=== PATIENT | male | born 1955 | race Caucasian/White ===

== ENCOUNTER 2022-12-22 07:18 | Outpatient (CLI) | payer MEDICARE, SELFPAY ==
[2022-12-22 07:48] VITALS: BMI 25.1
--- NOTE | 2022-12-22 07:48 | ECG_ITS ---
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 Interpretive Statements NAME OF STUDY: LEXISCAN SESTAMIBI STRESS TEST INDICATION: Htn, PROCEDURE: At the baseline, the EKG revealed normal sinus rhythm with a normal ST Ts.. The baseline heart was 65 bpm with a blood pressue of 147/97 mm of Hg Lexiscan was infused over a period of 20 seconds. A total of 0.4 milligrams of Lexiscan was infused. The stress phase was continued for a total of 5 minutes. Heart rate at the end of the stress phase was 79 bpm with a blood pressure 140/95 mm of Hg. The EKG at the peak infusion revealed no significant changes. Sestamibi was injected 20 seconds after the Lexiscan infusion. Heart rate at the end of the recovery phase was 79 bpm with a blood pressure of 165/92 mm of Hg. CONCLUSION: 1. No significant EKG changes with the LexiScan infusion 2. No LexiScan induced chest pain or cardiac arrhythmia 3. Normal blood pressure and heart rate response 4. Sestamibi/sestamibi perfusion scan pending; see separate report. Electronically Signed On 12-23-2022 14:14:19 FUND MANAGER by Vi Avina M.D. [id number]
--- NOTE | 2022-12-22 07:49 | NMCV_ITS ---
NM sondra perf SPECT r/s* [id number] Manas Puente Age: 67 Gender: M : 1955 Exam Date: 12/22/2022 08:00 Ordering Phys: Kia Ziegler [employer] Technologist: LEROY Maloney Exam Location: [facility] Indications: CHEST PAIN STRESS TEST Please see separate stress test report in [facility] for full findings IMAGE PROTOCOL Rest/Stress 1 Lexiscan Day Radiopharmaceutical Dose (mCi) Administration Site Administered by Rest: Tc-99m 10.5 IV LEROY Maloney Sestamibi Stress:Tc-99m 32.9 IV LEROY Dang Sestamibi Rest: 22-Dec-2022 60 Discovery 630 Stress: 22-Dec-2022 30 Discovery 630 0.4mg Lexiscan. Images obtained in supine and prone position. SPECT RESULTS Technical Quality: Excellent Raw Data Analysis: Normal Image Corrections: No attenuation or motion correction applied Summed Stress Score: 0 Summed Rest Score: 0 Summed Difference Score: 0 PERFUSION FINDINGS Quality of slightly decreased asymmetry was noted in the inferior wall region. No significant reversibility was noted in this region Significant attenuation artifacts also where noted in this area . FUNCTIONAL RESULTS (calculated via Gated SPECT) Stress Image LV EF (%): 69 Stress EDV (mL):105 TID: 0.96 Stress ESV (mL):33 FUNCTIONAL FINDINGS: Segmental wall motion analysis revealing no gross wall motion abnormalities IMPRESSIONS 1. Myocardial perfusion imaging revealing a small area of slightly decreased persistent tracer uptake in the inferior wall region, most likely represent attenuation artifact 2. Normal LV ejection fraction of 69%. 3. LV wall motion analysis revealing no gross wall motion abnormalities. 4. Normal LV volume Low probability for coronary ischemia, based on the above findings Dr Vi Avina MD FACC (Electronically Signed) Final Date: 22 December 2022 15:11 S
[2022-12-22] MEDS: regadenoson 0.4 Mg/5 ml Syringe IVP (08:56)
[2022-12-22 09:05] VITALS: BP 165/92; PULSE 80
== END 2022-12-22 07:19 | disposition home or self-care (01) ==
PROVIDERS: PCP Family Medicine; Visit Provider Nurse Practitioner Family
DX: I10 Essential (primary) hypertension (principal); R07.89 Other chest pain; R06.09 Other forms of dyspnea
CPT/HCPCS: 36415; 78452; 93017; 96374; A9500; J2785

== ENCOUNTER → 2024-03-06 12:23 | Outpatient (BNVA) | payer MEDICARE, SELFPAY | PROVIDERS: PCP Family Medicine; Referring Provider Nurse Practitioner Family; Visit Provider Internal Medicine Cardiovascular Disease | DX: R07.9 Chest pain, unspecified (principal) | CPT/HCPCS: 93005; 99205 ==

== ENCOUNTER 2024-03-14 10:38 | Outpatient (CLI) | payer MEDICARE, SELFPAY ==
[2024-03-14 11:06] LABS: Basophils % 0.7 %; Eosinophils # 0.1 10^3/uL (0.0-0.8); Eosinophils % 2.6 %; Hematocrit 38.2 % (37-53); Lymphocytes # 1.5 10^3/uL (0.8-4.8); Lymphocytes % 34.9 %; Mean Corpuscular HGB Conc 35.1 g/dL (30-55); Mean Corpuscular Hemoglobin 31.6 pg (27-33); Mean Corpuscular Volume 90.1 fl (82-101); Mean Platelet Volume 10.5 fL (7.4-10.4); Monocytes # 0.4 10^3/uL (0.2-0.9); Monocytes % 10.5 %; Neutrophils # 2.15 10^3/uL (1.8-7.7); Neutrophils % 51.1 %; Nucleated Red Blood Cells % 0 %; Platelet Count 207 10^3/cmm (157-399); Red Blood Count 4.24 10^6/uL (3.85-5.65); Red Cell Distribution Width 11.9 % (12.1-15.1); White Blood Count 4.21 10^3/uL (3.29-11.43)
[2024-03-14 11:20] LABS: INR 0.92 (0.8-1.2)
[2024-03-14 11:27] LABS: Anion Gap 13.5 (5-19); Blood Urea Nitrogen 20 mg/dL (8-23); Calcium 8.9 mg/dL (8.5-10.5); Carbon Dioxide 25 mmol/L (22-29); Chloride 103 mmol/L (98-107); Chol HDL Ratio 2.76 mg/dL (1.0-5.00); Cholesterol 182 mg/dL (0-200); Glomerular Filtration Rate 84.2 mL/min (90-130); Glucose 124 mg/dL (65-115); HDL Cholesterol 66 mg/dL (60-100); LDL Cholesterol Calculated 102 mg/dL (50-129); LDL HDL Ratio 1.55 RATIO (0.00-3.22); Osmolality Calculated 288 mOsm/kg (285-295); Potassium 4.5 mmol/L (3.5-5.1); Sodium 137 mmol/L (136-145); Triglycerides 69 mg/dL (0-150)
== END 2024-03-14 10:39 | disposition home or self-care (01) ==
LOC: LAB 10:39
PROVIDERS: Internal Medicine Cardiovascular Disease; PCP Family Medicine; Visit Provider Family Medicine
DX: E78.5 Hyperlipidemia, unspecified (principal); I48.91 Unspecified atrial fibrillation; R06.02 Shortness of breath; Z79.01 Long term (current) use of anticoagulants
CPT/HCPCS: 80048; 80061; 85025; 85610; 86850; 86900

== ENCOUNTER 2024-03-24 11:52 | Outpatient (CLI) | payer MEDICARE, SELFPAY ==
--- NOTE | 2024-03-24 11:59 | CT_ITS ---
WS: [id number] CT ABDOMEN AND PELVIS WITH CONTRAST HISTORY: LLQ ABDOMINAL PAIN TECHNIQUE: Imaging performed of the abdomen and pelvis with IV contrast. Single phase imaging of the abdomen. Coronal and sagittal reformats are submitted. All CT scans at [facility] use at [address] one of these dose optimization techniques: automated exposure control; mA and/or kV adjustment per patient size (includes targeted exams where dose is matched to clinical indication); or iterative re construction. IV CONTRAST: Omnipaque 350; 100 mL IV. Oral contrast: Yes. DLP: 406.01 mGy.cm COMPARISON: None available. Lower thorax: Very small subpleural nodules at the lung bases. There are a few micronodules. No pneum onia. Heart is normal size. No hiatal hernia. Liver/biliary system: Normal size liver. There is scattered low-attenuation masses throughout the gabi er. Majority of these measure 2 to 3 mm and are too small to characterize. There is a larger cyst in the posterior RIGHT lobe measuring 12 mm. No bile duct dilatation. Normal portal vein. Gallbladder: Contracted gallbladder. Pancreas: Normal size pancreas and pancreatic duct. No adjacent inflammation. Spleen: Normal size with granulomata. Adrenal glands: Normal. Right kidney: Normal. Left kidney: Normal. Aorta: Mild atherosclerosis with no aneurysm. Lymphadenopathy: None. Free fluid: None. GI tract: Nondistended stomach. No small bowel obstruction. Normal appendix. There are a few scattere d diverticula in the descending and sigmoid colon. No acute diverticulitis. Very slight narrowing of the distal sigmoid may be an area of peristalsis. Early neoplasm is not excluded. There is no adjacen t adenopathy. Abdominal wall: Very small umbilical hernia. Pelvis: No free fluid or adenopathy within the pelvis. Well distended urinary bladder. Hypervascular mass measures 11 mm in the RIGHT lateral bladder wall concerning for neoplasm. LEFT lateral bladder d iverticulum measures 3.9 x 2.5 cm. Inguinal canals are patent. Bones: Straightening of the normal lumbar lordosis. Mild foraminal narrowing at L4-5 and L5-S1 due to osteophyte disease. CT/CT abdomen pelvis w con* [id number] IMPRESSION: 1. Mild descending and sigmoid colon diverticulosis. No evidence for acute div erticulitis. 2. 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 Recommend follow-up with urology and cystoscopy. 3. Contracted gallbladder. 4. There are numerous scattered too small to characterize hypodensities in the liver along with a cyst. The small hypodensities may be tiny cysts or early me tastatic sites. The small indeterminate liver lesions would be poorly noted by ultrasound. Consider follow-up CT abdomen and pelvis with IV contrast in 3 to 4 months. 5. Very minimal wall thickening and narrowing of the distal sigmoid. This may be an area of peristalsis or early developing neoplasm. Recommend colonoscopy.
[2024-03-24] MEDS: iohexol 300 mg/mL 100 mL Btl IV (12:37)
[2024-03-24 13:45] LABS: INR 0.94 (0.8-1.2)
[2024-03-24 14:05] LABS: Anion Gap 14.4 (5-19); Blood Urea Nitrogen 12 mg/dL (8-23); Calcium 8.7 mg/dL (8.5-10.5); Carbon Dioxide 27 mmol/L (22-29); Chloride 100 mmol/L (98-107); Glomerular Filtration Rate 84.2 mL/min (90-130); Glucose 87 mg/dL (65-115); NT Pro B Type Natriuretic Pept < 36 pg/mL (0-125); Osmolality Calculated 283 mOsm/kg (285-295); Potassium 4.4 mmol/L (3.5-5.1); Sodium 137 mmol/L (136-145)
== END 2024-03-24 11:53 | disposition home or self-care (01) ==
LOC: RAD 11:53
PROVIDERS: Internal Medicine Cardiovascular Disease; PCP Family Medicine; Visit Provider Urology
DX: R10.32 Left lower quadrant pain (principal); I27.21 Secondary pulmonary arterial hypertension; I25.118 Atherosclerotic heart disease of native coronary artery with other forms of angina pectoris; K57.30 Diverticulosis of large intestine without perforation or abscess without bleeding; K76.89 Other specified diseases of liver
CPT/HCPCS: 36415; 74177; 80048; 83880; 85610; 86850; 86900; Q9967

== ENCOUNTER 2024-03-27 10:35 | Observation (INO) | payer MEDICARE, SELFPAY ==
[2024-03-27] VITALS (80 sets, daily range): BP systolic 60–159; BP diastolic 39–95; PULSE 50–93; RESP 12–28; TEMP 36.7–36.9; O2SAT 85–99; BMI 25.7
[2024-03-27] MEDS: diphenhydrAMINE 50 mg Capsule PO (06:25)
--- NOTE | 2024-03-27 07:00 | XACV_ITS ---
Exam Room: 2 Ht: 180 cm Wt: 84 kg BSA: 2.06 m2 Gender: Male : 1955 Any Known Allergies: Codeine Exam Priority: Routine Procedure(s): Procedure Description: Diagnostic procedure Procedure Description: PCI procedure Procedure Description: Left Heart Catheterization Procedure Description: Left ventriculography Procedure Description: Drug Eluting Coronary Stent Procedure Description: PTCA Procedure Description: Coronary Atherectomy Procedure Description: Miscellaneous Procedure Description: ACT Procedure Description: Coronary Angiography Procedure Description: Pressure Wire Fabrice OROPEZA; Diagnostic Cath Status: Elective Diagnostic Findings * The left main is a medium caliber vessel with no significant stenotic lesions. Moderate calcification was noted in the proximal to mid segments of all the 3 coronary arteries. * The left anterior descending artery is a medium caliber vessel which appears to wraparound the LV apex. The proximal LAD was found to have mild diffuse intimal irregularities. The mid LAD was found to have proximal around 40% tubular narrowing. Minimal intimal irregularities are noted in the rest of the vessels. The first diagonal branch also was found to have proximal of 40 to 50% tubular narrowing. The second diagonal which originates close to the first diagonal vessel also was found to have around 20 to 30% tubular narrowing proximally. * The left circumflex artery is a medium caliber vessel whichwas found to have mild diffuse disease. It is a medium caliber nondominant vessel. * The right coronary artery is a medium caliber dominant vessel which was found to have moderate to heavy calcification in the proximal to mid segment. Just before the first artery branch, there was a 70% tubular irregular narrowing in the artery. The mid RCA was found to have around 50% tubular narrowing. The PDA and the PLV branches were found to have minimal intimal irregularities. PCI Status: Elective PCI Indication: Other Interventional Findings * Procedure detail: We initially engaged RCA with JR4 guide catheter. iFR was performed that showed a significant value of 0.89. We switched guide to AL 0.75 for more support as the vessel was heavily calcified. Attempted performing shockwave intravascular lithotripsy was unsuccessful as balloon would not cross. We then proceeded with orbital arthrectomy. Several runs of orbital arthrectomy was performed. Shockwave balloon was used to deliver intravascular lithotripsy. This was 3.5 x 12 mm balloon. We then predilated the stenosis with 3.5 x 15 mm NC balloon. However even after that, stent could not be advanced. We then switched to access to femoral artery. This was for more support. AL guide was again used to engage the artery. This eventually let us place 3.0 x 38 mm resolute Phelan drug-eluting stent from proximal to mid RCA. Stent was postdilated with 3.5 x 15 mm NC balloon. Balloon angioplasty of distal RCA was also performed with 3.5 x 15 mm NC balloon. However stent could not be advanced. As this was moderate lesion, and patient was symptom-free, we decided to stop. If has symptoms in future, can obtain stress test to see if there is residual ischemia in RCA territory for assessing need for staged PCI. . * Proximal Right Coronary Artery: 70% stenosis treated with a MDT NC EUPHORA RX 3.14C77UI BALLOON, Shockwave 3.5x12mm, and MDT NC EUPHORA RX 3.91A81HY BALLOON. 0% residual stenosis, REGGIE: 3 flow. * Mid Right Coronary Artery: 70% stenosis treated with a MDT NC EUPHORA RX 3.21O22RZ BALLOON, Shockwave 3.5x12mm, MDT R GOMEZ 3.0X38 KELL, and MDT NC EUPHORA RX 3.51P45JG BALLOON. 0% residual stenosis, REGGIE: 3 flow. * Distal Right Coronary Artery: 70% stenosis treated with a MDT NC EUPHORA RX 3.99W42DA BALLOON. 0% residual stenosis, REGGIE: 3 flow. Conclusions 1. 68-year-old white male with history of hypertension, type 2 diabetes, dyslipidemia, presented with complaints of dyspnea on exertion, easy fatigability and chest pains/chest discomfort. He had a Myocardial perfusion imaging which was unremarkable. However in view of the multiple risk factors and the ongoing symptoms, in order to further evaluate the coronary status, a cardiac catheterization was recommended. Patient underwent left heart catheterization with left and right coronary angiogram and LV angiogram today. The findings are as follows. 2. High-grade lesion in the proximal to mid RCA. Mild to moderate disease in the proximal to mid LAD, proximal segments of the first and second diagonal branches.Mild diffuse disease in the other vessels. Moderate coronary calcification in the proximal to mid segments of all the 3 coronary artery disease. Normal LV ejection fraction of 55%. LVEDP of 20 mmHg. Based on the above angiographic findings, it was thought to be appropriate to consider PCI of the RCA lesion. I reviewed and discussed the cardiac catheterization data with Dr. De Santiago. Dr. De Santiago took cover further management of this patient at this point. 3. iFR significant for RCA stenosis. S/p successful revascularization of proximal to mid, heavily calcified lesion with orbital arthrectomy, intravascular lithotripsy shockwave balloon angioplasty and 1 stent. Distal RCA had balloon angioplasty however stent could not be advanced. 4. Proximal Right Coronary Artery was treated with a Balloon, Balloon, and Balloon. 5. Mid Right Coronary Artery was treated with a Balloon, Balloon, Drug Eluting Stent, and Balloon. 6. Distal Right Coronary Artery was treated with a Balloon. Recommendations * Dual antiplatelet therapy with aspirin and plavix for atleast 1 year. * If has continued symptoms in future, can consider stress test to assess distal RCA stenosis. * Outpatient cardiology follow up in 2 weeks. Interventional RX Recommendation: PCI w/o planned CABG Diagnostic RX Recommendation: PCI w/o planned CABG Anticoagulation: Heparin Ventriculography Ejection Fraction: 55.0 % LV EDP: 20 mmHg Left Ventriculography Findings: * LV gram was performed in the HUDSON position. The LV ejection fraction was around 55%. No significant mitral valve prolapse or mitral regurgitation. No filling defects were noted. The LVEDP was 20 mmHg. Pressures Phase:Rest AO : 103 / 65 ( 79 ) @ 8:29:00 AM 82 / 80 ( 73 ) @ 8:31:00 AM 116 / 70 ( 91 ) @ 8:42:00 AM 133 / 69 ( 92 ) @ 8:42:00 AM 109 / 68 ( 86 ) @ 8:53:00 AM 105 / 63 ( 80 ) @ 8:55:00 AM 92 / 65 ( 79 ) @ 9:21:00 AM 80 / 61 ( 71 ) @ 9:37:00 AM 124 / 73 ( 94 ) @ 10:31:00 AM LV : 121 / -4 / 16 @ 8:41:00 AM 124 / 0 / 19 @ 8:42:00 AM 123 / 0 / 20 @ 8:42:00 AM Valves Phase:DefaultPhase AV : 7.0 @ 10:25:30 AM 7.0 @ 10:25:30 AM AV Mean Gradient: 14.0 @ 10:25:30 AM 14.0 @ 10:25:30 AM Clinical Evaluation EBL: 5mL-10mL Procedural Details Pre-Procedure Time Out. Identified patient by full name and date of as verbalized by the patient/guarantor. Does the consent match the physician's order: Yes. Accurate & Complete Informed Consent: Yes. Inpatient/Outpatient History & Physical on Chart: No. If H&P is completed, is and addenduem needed: No; If yes, is the addendum complete: N/A. Visualize and Verify Site with Patient/Guarantor: N/A. Relevant Radiology Images available: Yes. Pre-op teaching completed and patient verbalized understanding. The risks, benefits, and alternatives of sedation and/or procedure were discussed by physician. The patient agrees to continue. Procedure started. Physician arrived. Current Diagnosis : Chest Pain. Physician scrubbed in. Immediate Pre-Procedure Time Out. Correct Patient: Yes; Correct Procedure: Yes; Correct Site: Yes; Correct Patient Position: Yes; Correct Supplies: Yes; Dried Flammable Prep: Yes; Blood Products Available: N/A;. Lidocaine 1% infiltrated to the right radial. Arterial access obtained. A 5 wallisian Joaquim catheter in over wire. Multiple views taken of left coronary artery. Catheter redirected to the RCA. Catheter removed over the exchange wire. A 5 wallisian JR4 catheter in over wire. Multiple views taken of right coronary artery. Dr. De Santiago called to review films. Catheter removed over the exchange wire. A 5 wallisian Angled Pig catheter in over wire. Dr. De Santiago arrived. EDP Sample taken: LV 121/-5,16; HR: 62 BPM; SpO2: 94%. LV gram performed in HUDSON @ 10 mL/second for a total of 30 mL. EDP Sample taken: LV 124/0,19; HR: 64 BPM; SpO2: 95%. Pullback taken: LV 123/0,20; AO 116/70(91); Mean: 14mmHg, Peak to Peak: 7mmHg, SEP: 7sec/min; HR: 63 BPM; SpO2: 95%. Catheter removed over the exchange wire. Physician scrubbed out. Dr. De Santiago scrubbed in to perform intervention. 6 wallisian JR 4 guide catheter was inserted over the wire. IFR guidewire was advanced through the guide catheter to lesion in the RCA. IFR results: 0.89. Runthrough guidewire was advanced through the guide catheter to lesion in the RCA. IFR wire out. 3.5x12mm Shockwave balloon inserted OTW and advanced to the RCA. Shockwave balloon out OTW. Wire out. Guide catheter out. 6 wallisian AL 0.75 guide catheter was inserted over the wire. Runthrough guidewire was advanced through the guide catheter to lesion in the mid RCA. ACT drawn. Results 320 seconds. Therapeutic limits - pre-heparin administration 90-150 seconds and monitoring heparin during a vascular procedure >250 seconds. 3.5x12mm Shockwave balloon inserted OTW and advanced to the RCA. Shockwave balloon out OTW. Teleport catheter inserted OTW. Runthrough wire out. Viperwire inserted and advanced through the Teleport catheter. Teleport catheter out OTW. 1.25mm Diamondback Coronary craig inserted OTW and advanced to the RCA. Athrectomy performed. AP Pads placed on the patient. Results checked. Athrectomy performed. Craig removed OTW. Teleport catheter inserted OTW. Viperwire out. 300cm Runthrough wire inserted and advanced through the Teleport catheter. Catheter out OTW. Inflation number : 1 A MDT NC EUPHORA RX [id number] BALLOON was prepped and advanced across the Mid RCA , then inflated to 14 SHANTI for 0:14 seconds. Inflation number: 2 The MDT NC EUPHORA RX 3.44T77WM BALLOON was reinflated across the Mid RCA, to 14 SHANTI for 0:09 seconds. Inflation number: 1 The MDT NC EUPHORA RX 3.14Y01UZ BALLOON was reinflated across the Prox RCA, to 16 SHANTI for 0:13 seconds. Balloon out. 3.5x12mm Shockwave balloon inserted OTW and advanced to the RCA. Inflation number : 2 A Shockwave 3.5x12mm was prepped and advanced across the Prox RCA , then inflated to 4 SHANTI for 0:20 seconds. Inflation number: 3 The Shockwave 3.5x12mm was reinflated across the Prox RCA, to 4 SHANTI for 0:14 seconds. Inflation number: 3 The Shockwave 3.5x12mm was reinflated across the Mid RCA, to 4 SHANTI for 0:15 seconds. Shockwave balloon out OTW. 3.0x38 Phelan stent inserted OTW. Stent unable to cross the lesion. Intact stent out OTW. Guideliner inserted OTW. 3.0x38 Gomez stent inserted OTW. Intact stent out OTW. Guideliner and wire out. Runthrough guidewire was advanced through the guide catheter to lesion in the mid RCA. 3.5x22mm Gomez stent inserted OTW. Intact stent out OTW. Guideliner inserted OTW and advanced to the RCA. 3.5x22mm Phelan stent inserted OTW. Intact stent out OTW. 300cm Runthrough wire inserted and advanced to the RCA. 3.5x12mm Shockwave balloon inserted OTW and advanced to the RCA. Inflation number: 4 The Shockwave 3.5x12mm was reinflated across the Prox RCA, to 4 SHANTI for 0:19 seconds. Inflation number: 4 The Shockwave 3.5x12mm was reinflated across the Mid RCA, to 4 SHANTI for 0:14 seconds. Inflation number: 5 The Shockwave 3.5x12mm was reinflated across the Mid RCA, to 4 SHANTI for 0:14 seconds. Shockwave balloon out OTW. 3.0x38 Phelan stent inserted OTW. Stent unable to cross the lesion. Intact stent out OTW. ACT drawn. Results 267 seconds. Therapeutic limits - pre-heparin administration 90-150 seconds and monitoring heparin during a vascular procedure >250 seconds. Wire out. Guide catheter out. A TR Band was successful obtaining hemostatsis at the Right Radial artery insertion site. Patient's family updated. Lidocaine 1% infiltrated to the right groin. Arterial access obtained with micropuncture set. Short sheath exchanged for a 45cm Flexor sheath. 6 wallisian AL 0.75 guide catheter was inserted over the wire. Runthrough guidewire was advanced through the guide catheter to lesion in the mid RCA. 300cm Runthrough wire inserted and advanced to the RCA. Guideliner inserted OTW and advanced to the RCA. Guideliner out. 3.0x38 Gomez stent inserted OTW. Inflation Number : 6 A MDT R GOMEZ 3.0X38 KELL -Lot Number# _[id number] EXP: 08/08/2026 was prepped and advanced across the Mid RCA. The stent was deployed at 12 SHANTI for 0:26 seconds. Stent balloon out over wire. 300cm Runthrough wire out. Inflation number : 1 A MDT NC EUPHORA RX 3.29E64ZU BALLOON was prepped and advanced across the Dist RCA , then inflated to 12 SHANTI for 0:11 seconds. Inflation number: 2 The MDT NC EUPHORA RX 3.86L93LN BALLOON was reinflated across the Dist RCA, to 12 SHANTI for 0:13 seconds. Inflation number: 7 The MDT NC EUPHORA RX 3.00H70CI BALLOON was reinflated across the Mid RCA, to 18 SHANTI for 0:10 seconds. Inflation number: 8 The MDT NC EUPHORA RX 3.70C94ZX BALLOON was reinflated across the Mid RCA, to 20 SHANTI for 0:15 seconds. Inflation number: 5 The MDT NC EUPHORA RX 3.55L12FK BALLOON was reinflated across the Prox RCA, to 20 SHANTI for 0:09 seconds. Balloon out. Results checked. 3.5x22 Phelan stent inserted and advanced OTW. Stent unable to cross the lesion. Intact stent out OTW. Guideliner inserted OTW. 3.5x22 Gomez stent inserted and advanced OTW. Stent unable to cross the lesion. Intact stent out OTW. 3.5x12 Gomez stent inserted and advanced OTW. Stent unable to cross the lesion. Intact stent out OTW. Guideliner removed OTW. 300cm Runthrough wire inserted and advanced through the guide catheter. 3.5x12 Phelan stent inserted and advanced OTW. Stent unable to cross the lesion. Intact stent out OTW. Wires out. ACT drawn. Results 379 seconds. Therapeutic limits - pre-heparin administration 90-150 seconds and monitoring heparin during a vascular procedure >250 seconds. Guide catheter out. A Right femoral angiogram was performed to determine safe placement of closure device. A Suture was successful obtaining hemostatsis at the Right Femoral artery insertion site. Sheath(s) sutured into position with 2-0 silk and sterile 4x4's and Op-site applied over the site. No oozing or signs and symptoms of hematoma noted. Arterial sheath flushed and connected to tranducer and pressure bag with heparinized saline. Post Procedure: Pulses reassessed and unchanged. PERRLA. Strong, equal hand director construction services bilaterally. No VTE prophylaxis required. Vital chart was stopped. Medication's Wasted: Heparin = 3000 units. Medication's Wasted: Nitro = 49.4 mg. Total IV fluids: 250 mL. Post-op diagnosis: CAD. Complications: None. Estimated blood loss: 5mL-10mL. Responsiveness - Normal response to verbal stimuli; alert and oriented, PERRLA. Airway - Unaffected, no intervention required; spontaneous ventilation. Circulation: W/N/L, pulses unchanged. Nausea/Vomiting: No. Procedure completed. Patient transferred by bed to 1st floor. Access Site Site: Right Radial artery Sheath Size: 6 Fr Hemostasis Method: TR Band Hemostasis Success: Successful Site: Right Femoral artery Sheath Size: 6 Fr Hemostasis Method: Suture Hemostasis Success: Successful Procedure Medications Start: 7:15 AM Stop: 7:15 AM Medication: Versed Amount: 1 mg Route: I.V. Start: 7:22 AM Stop: 7:22 AM Medication: Versed 1 mg and Fentanyl 25 mcg Amount: 1 Route: I.V. Start: 7:24 AM Stop: 7:24 AM Medication: Nitrogylcerin Amount: 200 mcg Route: I.A. Start: 7:24 AM Stop: 7:24 AM Medication: Verapamil Amount: 5 mg Route: I.A. Start: 7:28 AM Stop: 7:28 AM Medication: Heparin Amount: 5000 units Route: I.V. Start: 7:36 AM Stop: 7:36 AM Medication: Fentanyl Amount: 25 mcg Route: I.V. Start: 7:49 AM Stop: 7:49 AM Medication: Versed Amount: 1 mg Route: I.V. Start: 7:51 AM Stop: 7:51 AM Medication: Heparin Amount: 3000 units Route: I.V. Start: 8:04 AM Stop: 8:04 AM Medication: Heparin Amount: 1000 units Route: I.V. Start: 8:07 AM Stop: 8:07 AM Medication: Fentanyl Amount: 25 mcg Route: I.V. Start: 8:06 AM Stop: 8:06 AM Medication: Nitrogylcerin Amount: 200 mcg Route: I.A. Start: 8:33 AM Stop: 8:33 AM Medication: Versed Amount: 1 mg Route: I.V. Start: 8:36 AM Stop: 8:36 AM Medication: Heparin Amount: 1000 units Route: I.V. Start: 8:54 AM Stop: 8:54 AM Medication: Versed Amount: 1 mg Route: I.V. Start: 9:02 AM Stop: 9:02 AM Medication: Heparin Amount: 1000 units Route: I.V. Start: 9:25 AM Stop: 9:25 AM Medication: Fentanyl Amount: 25 mcg Route: I.V. Start: 9:29 AM Stop: 9:29 AM Medication: Heparin Amount: 2000 units Route: I.V. Start: 9:49 AM Stop: 9:49 AM Medication: Versed Amount: 1 mg Route: I.V. Start: 9:58 AM Stop: 9:58 AM Medication: Heparin Amount: 1000 units Route: I.V. Start: 10:10 AM Stop: 10:10 AM Medication: Plavix Amount: 600 mg Route: P.O. Start: 10:10 AM Stop: 10:10 AM Medication: Aspirin Amount: 325 mg Route: P.O. I, the attending physician, have reviewed and verified all procedure medications. Yes, all medications given per verbal order History/Risk Factors Hypertension: Yes Dyslipidemia: Yes Peripheral Arterial Disease (PAD): No Myocardial Infarction (AK): No Obesity: No Renal Disease: No Prior Interventions PCI: No CABG: No Valve Surgery: No Report Signatures Interventional Workflow Finalized by Woodrow De Santiago MD on 04/06/2024 12:27 PM Diagnostic Workflow Finalized by Dr Vi Avina MD [facility] on 03/29/2024 11:29 AM
--- NOTE | 2024-03-27 07:11 | W.PM.OPSUD ---
Surgery/Procedure H&P Update DATE OF PROCEDURE: March 27, 2024 DATE H&P PERFORMED: 03/06/24 H&P UPDATE INFORMATION: I have reviewed H&P completed within last 30 days, I have examined patient prior to procedure and No changes to prior documentation PREOP DIAGNOSIS: suspected ASHD PRIMARY INDICATION FOR PROCEDURE: CP/SOB/atherosclerosis of the aorta/ wall motion abnormality by ECHO PLANNED PROCEDURE: Operation Date: 03/27/24 07:00 Proposed Procedures p Cardiac Catheterization(Left) - Vi Avina MD PATIENT REASSESSED PRIOR TO SEDATION, WITH NO CHANGE NOTED: Yes PHYSICAL EXAM: alert, oriented x 3, clear to auscultation bilaterally and regular rate & rhythm AIRWAY EVAL/ANESTHESIA PLAN: normal airway, see other exam findings, ASA III, Monitored Anesthesia, Local Anesthesia, Risks, benefits & alternatives of sedation and/or procedure discussed and Patient agrees to continue as planned
[2024-03-27] MEDS: sodium chloride 0.9% 1,000 ML 100 ML IV (13:47)
[2024-03-27 14:00] LABS: Partial Thromboplastin Time 199.4 SECONDS (23.9-36.7)
[2024-03-27 16:14] LABS: Partial Thromboplastin Time 42.5 SECONDS (23.9-36.7)
--- NOTE | 2024-03-27 16:32 | PC.NURSE ---
Small hematoma noted to R. groin with sheath still in place. PTT noted to be 42.5 and able to pull sheath at this time. Within minutes of pulling thte sheath, the pt started to vagal down with BP dropping from 140 systolic to 60 systolic. Pt placed in trendelenberg position and bolus IVF given for the rest of the pull as the pt's BP did not start to rise until about 12-14 minutes into the pull. Carefully attempted to message hematoma and did soften the tissue but did not want to effect the BP in the process. Once sheath pull was completed, the pt's VS returned to normal and pt stated that he was feeling much better.
[2024-03-27] MEDS: trazodone 100 mg Tablet PO (20:52)
[2024-03-28 00:51] VITALS: BP 116/69; PULSE 77; RESP 15; TEMP 36.9; O2SAT 97
[2024-03-28 04:55] VITALS: BP 120/69; PULSE 83; RESP 14; TEMP 36.9; O2SAT 95
[2024-03-28 05:21] LABS: Basophils % 0.6 %; Eosinophils # 0.1 10^3/uL (0.0-0.8); Eosinophils % 1.5 %; Lymphocytes # 1.4 10^3/uL (0.8-4.8); Lymphocytes % 27.4 %; Mean Corpuscular HGB Conc 33.8 g/dL (30-55); Mean Corpuscular Hemoglobin 31.3 pg (27-33); Mean Corpuscular Volume 92.7 fl (82-101); Mean Platelet Volume 10.7 fL (7.4-10.4); Monocytes # 0.5 10^3/uL (0.2-0.9); Monocytes % 9.5 %; Neutrophils # 3.18 10^3/uL (1.8-7.7); Neutrophils % 60.4 %; Nucleated Red Blood Cells % 0 %; Platelet Count 202 10^3/cmm (157-399); Red Blood Count 3.99 10^6/uL (3.85-5.65); Red Cell Distribution Width 12.1 % (12.1-15.1); White Blood Count 5.26 10^3/uL (3.29-11.43)
[2024-03-28 05:44] LABS: Blood Urea Nitrogen 12 mg/dL (8-23); Calcium 8.4 mg/dL (8.5-10.5); Carbon Dioxide 23 mmol/L (22-29); Chloride 104 mmol/L (98-107); Creatinine Clr Calc Pharmacy 99.7996; Glomerular Filtration Rate 96.4 mL/min (90-130); Glucose 94 mg/dL (65-115); Osmolality Calculated 284 mOsm/kg (285-295); Sodium 137 mmol/L (136-145)
[2024-03-28 05:47] LABS: Anion Gap 14.2 (5-19); Potassium 4.2 mmol/L (3.5-5.1)
[2024-03-28 05:59] LABS: Slide Review Slide Review Perform
[2024-03-28 07:44] VITALS: BP 131/80; PULSE 74; RESP 16; TEMP 36.7
[2024-03-28] MEDS: clopidogrel 75 mg Tablet PO (08:54)
[2024-03-28] MEDS: tamsulosin 0.4 mg Capsule 0.400000000000000022 MG PO (08:55)
[2024-03-28] MEDS: finasteride 5 mg Tablet PO (08:55)
[2024-03-28] MEDS: aspirin 81 mg EC Tablet PO (08:55)
[2024-03-28] MEDS: atorvastatin 40 mg Tablet 20 MG PO (08:55)
[2024-03-28] MEDS: losartan 50 mg Tablet 100 MG PO (08:55)
[2024-03-28] MEDS: metoprolol succinate ER (24 HR) 25 mg Tablet PO (08:55)
[2024-03-28] MEDS: levothyroxine 50 mcg Tablet PO (08:55)
--- NOTE | 2024-03-28 09:37 | PC.CHAP ---
Pastoral Care Encounter/Spiritual Assessment Type of Contact [] Declined reinforcing steel placer visit [] Patient/Family/Request visit [] Outpatient visit [] Follow-up visit [] Physician referral [] Code/Alert [x] Routine visit [] Staff referral [] Actively dying [] Patient sleeping [] Family support [] [] Out of room [] Palliative care [] [] Receiving care in room [] Pre-surgical visit [] Trauma [] Long length of stay [] ICU visit [] Other: Relational/Emotional Strength [x] Patient feels connected with others/family/visitors/staff [] Distress [] Loneliness/isolation [] Abandonment Spirituality of Patient [x] Person of Ysabel [] Attends Scientologist of their Ysabel [x] Believes in Prayer [] Reads Bible or Congregation materials [] There are Spiritual issues to be addressed General Technician Interventions [x] Prayer [x] Active listening [] Non-anxious presence [x] Spiritual/emotional support [] Crisis/trauma care [] Spiritual counseling [] Bereavement support [] Provided bereavement packet [] Provided Bible/devotional materials [] Provided toy/stuffed animal, coloring book to patient or family member [] Provided Communion [] Anointing/[place] [] Salvation [x] Completed spiritual assessment [] Other: Impact on Illness or Injury [] Angry [] Fearful [] Anxious [] Often cries [] Exhaustion [] Unable to work [] Unable to attend latter-day [] Unable to walk/stand [] Unable to read [] Unable to drive [] Unable to eat/drink [] Unable to sleep [] Unable to be with family [] Patient intubated [] Other: Summary Time spent with patient 5 min
[2024-03-28 10:16] VITALS: PULSE 78
--- NOTE | 2024-03-28 10:25 | ECG_ITS ---
Test Date: 2024-03-28 Pat Name: Manas Puente Department: Room: 111 Gender: Male Passenger Screener: : 1955 Requested By: Vi Avina Order Number: [id number] Julieta MD: Leena Mcneil M.D. Measurements Intervals [place] Rate: 78 P: 37 MT: 178 QRS: 23 QRSD: 92 T: 30 QT: 347 QTc: 398 Interpretive Statements SINUS RHYTHM WITH OCCASIONAL SUPRAVENTRICULAR PREMATURE COMPLEXES NONSPECIFIC T-WAVE ABNORMALITY Borderline EKG No previous ECG available for comparison Electronically Signed On 03-28-2024 10:59:55 CDT by Leena Mcneil M.D. [email or web address] [id number]
--- NOTE | 2024-03-28 11:04 | P.PN_ITS ---
Subjective 2 Subjective: Patient had a cardiac catheterization study. He was found to have hemodynamic significant lesions in the right coronary artery. He underwent PCI of these lesions by Dr. De Santiago. Currently remaining stable. Vitals are stable. No arrhythmias on the monitor. Medications: Medication Review Details: Current Medications Aspirin (Aspirin 81 Mg Ec Tablet) 81 mg PO DAILY [facility] Last Admin: 03/28/24 08:55 Dose: 81 mg Atorvastatin Calcium (Atorvastatin 40 Mg Tablet) 20 mg PO DAILY [facility] Last Admin: 03/28/24 08:55 Dose: 20 mg Clopidogrel Bisulfate (Clopidogrel 75 Mg Tablet) 75 mg PO DAILY [facility] Last Admin: 03/28/24 08:54 Dose: 75 mg Finasteride (Finasteride 5 Mg Tablet) 5 mg PO DAILY [facility] Last Admin: 03/28/24 08:55 Dose: 5 mg Sodium Chloride (Sodium Chloride 0.9%) 1,000 mls @ 100 mls/hr IV .Q10H [facility] Last Admin: 03/28/24 08:49 Dose: Not Given Levothyroxine Sodium (Levothyroxine 50 Mcg Tablet) 50 mcg PO DAILY [facility] Last Admin: 03/28/24 08:55 Dose: 50 mcg Losartan Potassium (Losartan 50 Mg Tablet) 100 mg PO DAILY [facility] Last Admin: 03/28/24 08:55 Dose: 100 mg Metoprolol Succinate (Metoprolol Succinate Er (24 Hr) 25 Mg Tablet) 25 mg PO DAILY [facility] Last Admin: 03/28/24 08:55 Dose: 25 mg Tamsulosin HCl (Tamsulosin 0.4 Mg Capsule) 0.4 mg PO DAILY [facility] Last Admin: 03/28/24 08:55 Dose: 0.4 mg Trazodone HCl (Trazodone 100 Mg Tablet) 100 mg PO BEDTIME [facility] Last Admin: 03/27/24 20:52 Dose: 100 mg Vitals/I&O/Wt Last Vital Signs Temp 98.0 F 03/28/24 07:44 Pulse 78 03/28/24 10:16 Resp 16 03/28/24 07:44 BP 131/80 03/28/24 07:44 Pulse Ox 95 03/28/24 04:55 O2 Del Method Room Air 03/28/24 04:55 03/27/24 03/28/24 03/28/24 22:59 06:59 14:59 Intake Total 1000 / 1000 240 / 240 Output Total 700 / 1550 Balance 300 / -550 240 / 240 Weight last 48 hrs Weight 185 lb Weight 185 lb Physical Exam 2 Narrative: GENERAL: The patient is alert and oriented times three. Not in any acute distress. HEENT: No significant pallor, icterus or lymphadenopathy.Oral cavity: There are no mucous membrane lesions. NECK: Trachea appears to be central. No masses noted. No JVD or thyromegaly appreciated. RESPIRATORY: Chest is symmetrical. No intercostals muscle retraction or any accessory muscle activation. There is no chest wall tenderness. Breath sounds are heard bilaterally. No rales or rhonchi heard. No evidence of any consolidation. BREASTS: Deferred. HEART: The heart sounds are normal. No S3 or S4. No significant murmurs. No pericardial rub ABDOMEN: No vessel pulsations or distention. No tenderness. No organomegaly appreciated. Bowel sounds are normally heard. : Deferred. RECTAL: Deferred. LYMPHATIC: No lymphadenopathy noted in the neck. EXTREMITIES: No hematoma bleeding at the groin or at the radial arterial puncture site MUSCULOSKELETAL: No acute joint deformities or swelling SKIN: There are no significant rashes or ecchymosis NEUROPSYCHIATRIC: The patient is alert and oriented x3. Appears to be in a good mood. No tremors or rigidity noted. Data 03/28/24 04:32 03/28/24 04:32 Other Labs: Laboratory Last Values WBC 5.26 10^3/uL (3.29-11.43) 03/28/24 04:32 RBC 3.99 10^6/uL (3.85-5.65) 03/28/24 04:32 Hgb 12.50 g/dL (11.27-16.99) 03/28/24 04:32 Hct 37.0 % (37-53) 03/28/24 04:32 MCV 92.7 fl (82-101) 03/28/24 04:32 MCH 31.3 pg (27-33) 03/28/24 04:32 MCHC 33.8 g/dL (30-55) 03/28/24 04:32 RDW 12.1 % (12.1-15.1) 03/28/24 04:32 Plt Count 202 10^3/cmm (157-399) 03/28/24 04:32 MPV 10.7 fL (7.4-10.4) H 03/28/24 04:32 Neut % (Auto) 60.4 % 03/28/24 04:32 Lymph % (Auto) 27.4 % 03/28/24 04:32 Kern % (Auto) 9.5 % 03/28/24 04:32 Eos % (Auto) 1.5 % 03/28/24 04:32 Baso % (Auto) 0.6 % 03/28/24 04:32 Neut # (Auto) 3.18 10^3/uL (1.8-7.7) 03/28/24 04:32 Lymph # (Auto) 1.4 10^3/uL (0.8-4.8) 03/28/24 04:32 Kern # (Auto) 0.5 10^3/uL (0.2-0.9) 03/28/24 04:32 Eos # (Auto) 0.1 10^3/uL (0.0-0.8) 03/28/24 04:32 Baso # (Auto) 0.0 10^3/uL (0.0-0.1) 03/28/24 04:32 Nucleated RBC % (auto) 0 % 03/28/24 04:32 Nucleated RBCs # 0.0 /100WBC 03/28/24 04:32 APTT 42.5 SECONDS (23.9-36.7) H D 03/27/24 15:52 Sodium 137 mmol/L (136-145) 03/28/24 04:32 Potassium 4.2 mmol/L (3.5-5.1) 03/28/24 04:32 Chloride 104 mmol/L (98-107) 03/28/24 04:32 Carbon Dioxide 23 mmol/L (22-29) 03/28/24 04:32 Anion Gap 14.2 (5-19) 03/28/24 04:32 BUN 12 mg/dL (8-23) 03/28/24 04:32 Creatinine 0.8 mg/dL (0.7-1.2) 03/28/24 04:32 GFR Calculation 96.4 mL/min (90-130) 03/28/24 04:32 Glucose 94 mg/dL (65-115) 03/28/24 04:32 Calculated Osmolality 284 mOsm/kg (285-295) L 03/28/24 04:32 Calcium 8.4 mg/dL (8.5-10.5) L 03/28/24 04:32 Other data: An EKG was done today, 03/28/2024 which revealed normal sinus rhythm with normal ST Ts. A&P Assessment and plan (1) Atherosclerotic heart disease: Patient status post PCI of the RCA lesions,, currently stable Qualifiers: Coronary Disease-Associated Artery/Lesion type: [place] artery [place] vs. transplanted heart: [place] heart Associated angina: with stable angina Qualified Code(s): I25.118 - Atherosclerotic heart disease of [place] coronary artery with other forms of angina pectoris (2) Dyslipidemia (high LDL; low HDL): Will continue on the current dose of the Lipitor. Will do a lipid profile on the blood in the lab and then the dose will be adjusted (3) Benign essential HTN: May continue on the current medications Plan Since the patient remained stable, will be discharged home today. Patient will be [facility] at [facility] 1 to 2 weeks Patient will be seen by me in the office 1 month Patient is advised to continue the medications as mentioned above. The importance of compliance to diet, medications and exercise were discussed. In the event of the patient developing chest pain ,unusual palpitations or any new symptoms, is advised to contact me or come to the hospital. Attestations 2 Medical Necessity Statement*: Discharge home today Coding Level of Care Code Acute Code for g Fwd Diagnoses Atherosclerosis of [place] coronary artery of [place] heart with stable angina pectoris I25.118 Coronary Disease-Associated Artery/Lesion type: [place] artery [place] vs. transplanted heart: [place] heart Associated angina: with stable angina Dyslipidemia (high LDL; low HDL) E78.5 Benign essential HTN I10
[2024-03-28 11:22] VITALS: PULSE 78
[2024-03-28 12:09] VITALS: BP 135/75; PULSE 83; RESP 16; TEMP 36.7
--- NOTE | 2024-03-28 12:43 | PC.NURSE ---
Discharge Note Patient discharged to [home] via [w/c to POV] accompanied by [his ]. Discharge instructions reviewed with patient and/or sales representative metals. Mobile pharmacy medications and/or prescriptions provided. Belongings/home medications returned.
== END 2024-03-28 12:44 | disposition home or self-care (01) ==
LOC: CSU 11:16
PROVIDERS: Internal Medicine; Admitting Provider Internal Medicine Cardiovascular Disease; PCP Electrodiagnostic Medicine; Visit Provider Internal Medicine Cardiovascular Disease
DX: I25.118 Atherosclerotic heart disease of native coronary artery with other forms of angina pectoris (principal); I10 Essential (primary) hypertension; E11.9 Type 2 diabetes mellitus without complications; E78.5 Hyperlipidemia, unspecified
CPT/HCPCS: 36415; 80048; 85025; 85347; 85730; 93005; 93458; 93571; 96374; 96375; 99152; 99153; C1724; C1725; C1769; C1874; C1887; C1894; C9602; G0378; J0461; J1644; J2250; J3010; J3490; J7030; Q0163; Q9967

== ENCOUNTER → 2024-04-18 10:17 | Outpatient (BNVA) | payer MEDICARE, SELFPAY | PROVIDERS: PCP Electrodiagnostic Medicine; Visit Provider Internal Medicine Cardiovascular Disease | DX: I25.10 Atherosclerotic heart disease of native coronary artery without angina pectoris (principal); I10 Essential (primary) hypertension; E78.5 Hyperlipidemia, unspecified; I27.21 Secondary pulmonary arterial hypertension; Z87.891 Personal history of nicotine dependence; R06.02 Shortness of breath | CPT/HCPCS: 36415; 80048; 99214 ==

== ENCOUNTER 2024-04-23 09:38 | Outpatient (CLI) | payer MEDICARE, SELFPAY ==
[2024-04-23 10:20] LABS: Chol HDL Ratio 2.76 mg/dL (1.0-5.00); Cholesterol 160 mg/dL (0-200); HDL Cholesterol 58 mg/dL (60-100); LDL Cholesterol Calculated 94 mg/dL (50-129); LDL HDL Ratio 1.62 RATIO (0.00-3.22); Triglycerides 41 mg/dL (0-150)
== END 2024-04-23 09:39 | disposition home or self-care (01) ==
LOC: LAB 09:39
PROVIDERS: PCP Electrodiagnostic Medicine; Visit Provider Internal Medicine Cardiovascular Disease
DX: E78.5 Hyperlipidemia, unspecified (principal); I25.118 Atherosclerotic heart disease of native coronary artery with other forms of angina pectoris
CPT/HCPCS: 36415; 80061

== ENCOUNTER 2024-06-04 09:26 | Oncology outpatient (recurring) (ONCR) | payer MEDICARE, SELFPAY ==
--- NOTE | 2024-06-04 10:55 | N.ONRAD NP_ITS ---
Radiation Oncology New Patient Visit Patient: Manas Puente MR#: [id number] : 1955 Age: 68 Sex: Male Dictated by: Dr. 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 Chief Complaint / History of Present Illness: Patient initially presented with weak stream, hesitancy, nocturia of 5 times per night and urgency. He had a 4 to 5-month trial of tamsulosin and finasteride without relief of symptoms. He also had complaint of left lower quadrant pain that was sharp in nature. He did had a CT of his abdomen pelvis which revealed what was possibly a bladder mass. On April 15, 2024 he had a cystoscopy that showed a bladder tumor. On May 21 he underwent a TURBT which revealed the bladder mass in the anterior wall. It was resected and was found to be invasive urothelial carcinoma, high-grade, invaded into the muscularis propria, positive for lymphovascular invasion. The CT scan that he had mid March also showed scattered low-attenuation masses throughout the liver which the majority measured 2 to 3 mm in size and were too small to characterize. There was a large cyst in the posterior right lobe that measured 12 mm. It was recommended that this be repeated in 3 months. He is here today to discuss combined modality therapy for urothelial carcinoma. He does have pending appointments to talk to a surgeon and medical oncology. Current Medications: Aspirin 81 mg, Lipitor 20 mg, Plavix 75 mg, Proscar 5 mg, Synthroid 50 mcg, metoprolol 25 mg, multivitamin, Benicar 40 mg, Lovaza 1 g, Flomax 0.4 mg, trazodone 100 mg Allergies: Codeine and amlodipine Medical History: No history of collagen vascular disease. No previous radiation therapy. BPH, hypothyroidism, COPD, DJD, coronary artery disease, DDD, hypertension, increased lipids, pulmonary hypertension, stent placement in March Surgical History: TUR BT Family History: Uncontributory Social History: Currently lives with his . Quit smoking in 1990 Current Complaints / Review of Systems: . Still has occasional sharp shooting pains in the left lower quadrant Vital Signs: Performed on 06/04/2024 9:23 AM BMI - 24.659 kg/m2 (high), Height - 71 in, Weight - 176.8 lbs, Temperature - 97.4 f, Pulse - 67 /min, Respiration - 18 /min, O2 Sat - 98 %, Pain - 0, Fatigue - 0 and BP - 179/ 90 mm(hg)(high/). Physical Exam: General: Patient is in no apparent distress. He is accompanied by his . HEENT: Normocephalic atraumatic. Pupils are equal, sclera clear, extraocular muscles intact. Pulmonary: Respiratory rate is regular nonlabored Cardiovascular: Regular rate and rhythm Abdomen: Abdomen is moderately protuberant and android pattern Extremities: No obvious edema or lymphedema noted Neurological: Alert and orient x 3. 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 He is also scheduled to visit with medical oncology and a oncologic surgeon in the next week or 2. I reviewed with him the typical course of treatment with the plan for combined therapy. We talked about the simulation process. We discussed the daily treatment regiment. We reviewed the risks and side effects both acute and long-term. I answered all of his questions. And at the completion of our interview he had no additional concerns. I will be calling him with the results of his CT scan once those come through. He will otherwise return based on what his final decision will be. Signed by: 06/04/2024 10:54:34 AM <<Signature on File>> Time spent with patient:60 60 CPT Code: CPT Code:
== END 2024-06-11 23:59 | disposition home or self-care (01) ==
PROVIDERS: PCP Electrodiagnostic Medicine; Visit Provider Radiology Radiation Oncology
DX: C67.3 Malignant neoplasm of anterior wall of bladder (principal); Z87.891 Personal history of nicotine dependence
CPT/HCPCS: 99205

== ENCOUNTER 2024-06-04 14:27 | Outpatient (CLI) | payer MEDICARE, SELFPAY ==
--- NOTE | 2024-06-04 14:30 | CT_ITS ---
WS: [id number] CT CHEST, ABDOMEN, AND PELVIS WITH CT UROGRAM PROTOCOL. TECHNIQUE: Noncontrast CT of the abdomen and contrast-enhanced CT of the chest, abdomen, and pelvis w ith coronal and sagittal reformatted images. 30 second, venous, and delayed imaging was obtained. CLINICAL INFORMATION: MALIGNANT NEOPLASM OF ANTERIOR WALL OF URINARY BLADDER COMPARISON: CT 03/24/2024 DLP: 2432.[address] scans at [facility] use at least one of these dose optimization techniques: automated e xposure control; mA and/or kV adjustment per patient size (includes targeted exams where dose is matc hed to clinical indication); or iterative reconstruction. CT CHEST: Normal caliber thoracic aorta. Aortic calcification. Proximal main pulmonary arteries are normal. Cor onary calcification. No mediastinal or hilar lymphadenopathy. No axillary lymphadenopathy. Normal tho racic spine. Partially visualized postoperative changes in the lower cervical spine. Lungs are well a erated. No acute pulmonary infiltrates. A few tiny subcentimeter scattered micronodules in the lung b ases unchanged compared to previous. RIGHT upper lobe measuring [address] ABDOMEN AND PELVIS: Diffuse bladder wall thickening with enhancement eccentric to the RIGHT. Diffuse bladder wall thicken ing and enhancement has progressed with surrounding induration suspicious for microinvasion eccentric to the RIGHT. Diffuse thickening and enhancement of the majority of the RIGHT anterior bladder wall and RIGHT dome of the bladder. Recommend urology consultation and further evaluation with cystoscopy. Slightly prominent enhancing LEFT inguinal lymph nodes largest measuring 9 mm appears new from previo us. New enhancing para-aortic and retroperitoneal lymph nodes mainly subcentimeter in size but suspic ious for metastatic disease. Enlarged retrocrural lymph node suspicious for metastatic disease measur ing 10 mm. Enlarged aortocaval lymph node measuring 11 mm. In addition prominent RIGHT common iliac a nd a few prominent enhancing pelvic sidewall lymph nodes RIGHT greater than LEFT also suspicious for metastatic disease. Several enhancing RIGHT iliac lymph nodes the largest measuring 12 mm Small esophageal hiatal hernia. Several low-attenuation lesions in the liver similar in appearance to the prior examination most of which appear to represent incidental cysts. Some are too small to leonardo acterize. The largest measures 13 mm the RIGHT hepatic lobe unchanged. Gallbladder is contracted. A f ew tiny splenic granulomas. Adrenal glands are normal. Normal pancreas. Urograms are normal. Normal r enal parenchymal enhancement. No hydronephrosis. Normal caliber abdominal aorta. Aortic calcification . Retroaortic LEFT renal vein. Celiac and SMA are patent. Normal filling of both ureters. Normal excr etion on the delayed images. Filling of the bladder diverticulum. No hydronephrosis in either kidney. Lucent lesions with sclerosis adjacent to the RIGHT SI joint unchanged from previous and likely benig n. Sclerotic lesion in the RIGHT acetabulum likely benign bone island. Disc space narrowing worse at L4-L5 and L5-S1. Stable LEFT lateral bladder diverticulum measuring 4.1 x 2.4 cm. Prostate measures 4.[address]/[place] wo/w [id number] IMPRESSION: 1. Diffuse enhancing bladder wall thickening progressed today eccentric to the RIGHT with en plaque thickening involving the RIGHT ventral and RIGHT ventral bladder dome. This appears more extensive compared to the prior examination wit h thickening of the majority of the RIGHT anterior bladder wall and RIGHT anter ior dome with surrounding induration which can be seen with microinvasion. Anival mmend correlation with cystoscopy. Findings suspicious for TCC. 2. 2 enhancing lymph nodes LEFT inguinal are new compared to previous the larg est measuring 9 mm. These are indeterminate but metastatic disease not excluded . 3. A few normal sized para-aortic and retroperitoneal lymph nodes nonspecific but suspicious and new from previous. Prominent retrocrural lymph node with enh ancement has a suspicious appearance measuring 9.7 mm concerning for metastatic disease. 4. Suspicious enhancing RIGHT iliac lymph nodes largest measuring 12 mm suspic ious for metastatic disease. A few normal size but suspicious enhancing RIGHT p elvic sidewall lymph nodes 5. A few small subcentimeter nodules largest measuring 4 mm RIGHT upper lobe. 6. No mediastinal or hilar lymphadenopathy. 7. Stable LEFT bladder wall diverticulum measuring 4.0 x 2.5 cm with filling o n the delayed images. 8. Stable presumed hepatic cysts in the liver. Some are too small to character ize. This is new compared to previous.
[2024-06-04] MEDS: iohexol 350 mg/mL 500 mL Btl (per mL) IV (14:48)
== END 2024-06-04 14:28 | disposition home or self-care (01) ==
LOC: RAD 14:27
PROVIDERS: PCP Electrodiagnostic Medicine; Visit Provider Urology
DX: C67.3 Malignant neoplasm of anterior wall of bladder (principal); R91.8 Other nonspecific abnormal finding of lung field; N32.89 Other specified disorders of bladder; I89.8 Other specified noninfective disorders of lymphatic vessels and lymph nodes; K44.9 Diaphragmatic hernia without obstruction or gangrene; K76.9 Liver disease, unspecified; M48.061 Spinal stenosis, lumbar region without neurogenic claudication; M48.07 Spinal stenosis, lumbosacral region; G95.89 Other specified diseases of spinal cord
CPT/HCPCS: 71260; 74178; Q9967

== ENCOUNTER 2024-06-17 10:30 | Outpatient (CLI) | payer MEDICARE, SELFPAY ==
--- NOTE | 2024-06-16 | PETR_ITS ---
PROCEDURE INFORMATION: Exam: PET/CT Skull Base to Mid-thigh Exam date and time: 06/17/2024 11:37 AM Age: 68 years old Clinical indication: Condition or disease; Primary cancer: Bladder cancer; Initial oncological staging assessment; Prior surgery; Surgery date: 6+ months; Surgery type: Heart stent, bladder; Additional info: Bladder cancer, abnormal CT LABS AND CLINICAL REPORTS: Glucose: 116 mg/dl Treatment strategy for malignancy (PET staging): Initial Staging (PI) TECHNIQUE: Imaging protocol: Following at least four-hour fasting and following the injection of radiopharmaceutical, low dose CT images were obtained. Then, PET images were obtained. Attenuation corrected images were constructed using the CT scan. Fused images of PET and CT were reviewed. The standardized uptake values (SUV) reported below are maximum values within a region of interest, expressed in gm/ml. Exam includes orbital meatal line to mid-thigh. Radiopharmaceutical: 11.2 mCi F-18 FDG (Fluorodeoxyglucose), IV. Time of imaging post radiopharmaceutical administration: 1 hour Injection site: Left antecubital [facility] [id number] 06/04/2024 2:30 PM FINDINGS: Brain: Visualized brain has normal physiologic uptake. Pharynx: No abnormal uptake. Larynx: No abnormal uptake. Lungs, pleura and trachea: No abnormal uptake. Calcified granulomas in both lungs are noted. A solid anterior left upper lobe 3 mm nodule on image 223 is noted. A solid 3-4 mm nodule on the minor fissure on series 202, image 221 is present, with an additional 2 mm solid nodule on the major fissure on image 218. These solid nodules are similar compared with 06/04/2024. Heart: Normal physiologic uptake. Mediastinal space: No abnormal uptake. Liver: No abnormal uptake. Small similar scattered low-density foci within the liver are noted, the largest of which is present in the posteromedial right lobe measuring 1.3 cm in diameter on series 202, image 187. These regions do not appear radiotracer avid. Gallbladder and biliary ducts: No abnormal uptake. Pancreas: No abnormal uptake. Spleen: No abnormal uptake. Calcified granulomas in the spleen are present. Adrenal glands: No abnormal uptake. Kidneys and ureters: Normal physiologic uptake. Stomach and bowel: No abnormal uptake. Urinary bladder: A moderate size left urinary bladder diverticulum is present. There is evidence of mild diffuse wall thickening of the urinary bladder at the dome and involving the right wall appears slightly decreased compared with 06/04/2024. Assessment of uptake within the wall is limited by PET-CT secondary to physiologic urinary radiotracer activity in the lumen of the bladder. Reproductive: Bilateral scrotal surgical clips are noted. No abnormal uptake. Vasculature: No abnormal uptake. Lymph nodes: Mildly prominent retroperitoneal lymph nodes are similar in size compared with 06/04/2024 with elevated uptake. Examples: Anterior slightly to the right of the mid abdominal aorta measuring 1 cm on series 202, image 157, SUV max 3.4; left periaortic space measuring 8 mm on image 152, SUV max 5.2; posterior to the inferior vena cava measuring 1.4 x 0.9 cm on image 135, SUV max 3.6. An approximately 9 mm right posterior periaortic/inferior retrocrural lymph node on image 163 is similar in size since the CT of 06/04/2024, SUV max 3.1. Elevated uptake in right external iliac chain/right pelvic sidewall lymph nodes is noted and these lymph nodes are similar in size compared with 06/04/2024. Examples: Anterior right external iliac chain measuring 1.8 x 0.6 cm on image 87, SUV max 4.6; clustered along the right pelvic sidewall with an overall measurement of 2.7 x 1.0 cm on image 93, SUV max 4.7. Benign-appearing calcified mediastinal and hilar lymph nodes are present. Skeleton: No abnormal uptake in the visualized axial and appendicular skeleton. Degenerative changes in the spine are noted. Anterior metallic fusion at C5-C6 is present. Benign-appearing mild lobulated lucency in the medial right iliac bone on series 202, image 105 is noted, without elevated uptake. Soft tissues: No abnormal uptake in the visualized head, neck, chest, abdomen, pelvis, and extremities. METRICS: Mediastinal blood pool: SUV max 2.7, SUV mean 2.1 PET/PET skull to thigh INIT [id number] IMPRESSION: 1. Mild thickening of the wall of the urinary bladder is noted superiorly and on the appears slightly decreased compared with 06/04/2024. This may be inflammatory in nature, related to post treatment changes. Residual or recurrent malignancy cannot be entirely excluded from this examination. Assessment of uptake within the wall is limited by PET-CT. 2. Radiotracer avid mildly prominent retroperitoneal and right external iliac chain lymph nodes are similar in size compared with 06/04/2024 concerning for metastases. 3. Small similar in size bilateral noncalcified pulmonary nodules are present without elevated uptake. Lack of uptake favors a benign etiology, however, assessment of small nodules can be limited by PET-CT. 4. Old granulomatous changes. 5. Low-density lesions in the liver are noted without elevated uptake, likely related to benign cysts or hemangiomas. 6. Additional nonurgent findings as detailed above.
== END 2024-06-17 10:31 | disposition home or self-care (01) ==
LOC: RAD 10:30
PROVIDERS: PCP Electrodiagnostic Medicine; Visit Provider Urology
DX: C67.9 Malignant neoplasm of bladder, unspecified (principal); J84.10 Pulmonary fibrosis, unspecified; R59.0 Localized enlarged lymph nodes; K76.89 Other specified diseases of liver; Z95.9 Presence of cardiac and vascular implant and graft, unspecified
CPT/HCPCS: 78815; A9552

== ENCOUNTER 2024-06-23 13:31 | Outpatient (CLI) | payer MEDICARE, SELFPAY ==
--- NOTE | 2024-06-23 08:48 | XR_ITS ---
WS: [id number] Examination: XR chest 1V portable [id number] Reason for Exam: Post PICC insertion Date: June 23, 2024 Comparison: April 23, 2024 Findings: The heart is grossly enlarged on this AP portable film. The mediastinum is not widened. A right-sided PICC is identified with the tip at the junction of the superior vena cava and right atr ium. There is no effusion or consolidation. XR/XR chest 1V portable [id number] Impression: No acute lung process. The PICC is well-positioned.
[2024-06-23 09:30] VITALS: BP 156/92; PULSE 68; RESP 18; TEMP 36.6; O2SAT 98
--- NOTE | 2024-06-23 09:30 | PICC.NOTE ---
Double lumen PICC placed to right brachial vein. Referred to vascular access nurse for PICC placement due to need for chemo. Risks and benefits discussed and informed consent obtained from pt. Right arm assessed with right brachial vein measuring 3.9 mm, straight, and apparent best choice for placement. Using sterile technique and MST, right brachial vein accessed x 1 stick. Mid-arm circumference measured 10 cm from right AC 29.5 cm. Trimmed cath 41 cm with 0 cm external length noted. CXR shows tip in cavoatrial junction, in good position for use per radiologist. Line secured with stat-lock. Insertion site covered with Biopatch and TSM. Report [facility], Danae. Pt scheduled for 24 hour dressing change at [facility] tomorrow at 1500.
[2024-06-23 10:03] LABS: Basophils % 0.7 %; Eosinophils # 0.1 10^3/uL (0.0-0.8); Eosinophils % 2.4 %; Hematocrit 39.1 % (37-53); Lymphocytes # 1.5 10^3/uL (0.8-4.8); Lymphocytes % 34.4 %; Mean Corpuscular HGB Conc 34.3 g/dL (30-55); Mean Corpuscular Hemoglobin 30.4 pg (27-33); Mean Corpuscular Volume 88.7 fl (82-101); Mean Platelet Volume 10.1 fL (7.4-10.4); Monocytes # 0.6 10^3/uL (0.2-0.9); Monocytes % 14.7 %; Neutrophils % 47.6 %; Nucleated Red Blood Cells % 0 %; Platelet Count 207 10^3/cmm (157-399); Red Blood Count 4.41 10^6/uL (3.85-5.65); Red Cell Distribution Width 12.3 % (12.1-15.1); White Blood Count 4.21 10^3/uL (3.29-11.43)
[2024-06-23 10:26] LABS: Alanine Aminotransferase 21 U/L (0-41); Albumin Level 4.1 g/dL (3.5-5.2); Alkaline Phosphatase 116 U/L (40-130); Anion Gap 15.8 (5-19); Aspartate Amino Transferase 29 U/L (0-40); Blood Urea Nitrogen 14 mg/dL (8-23); Carbon Dioxide 23 mmol/L (22-29); Chloride 103 mmol/L (98-107); Cholesterol 161 mg/dL (0-200); Globulin 2.6 g/dL (1.3-4.6); Glomerular Filtration Rate 96.4 mL/min (90-130); Glucose 88 mg/dL (65-115); HDL Cholesterol 67 mg/dL (60-100); LDL Cholesterol Calculated 83 mg/dL (50-129); LDL HDL Ratio 1.24 RATIO (0.00-3.22); Osmolality Calculated 286 mOsm/kg (285-295); Potassium 3.8 mmol/L (3.5-5.1); Sodium 138 mmol/L (136-145); Total Bilirubin 0.8 mg/dL (0.15-1.2); Total Protein 6.7 g/dL (6.6-8.7); Triglycerides 54 mg/dL (0-150)
--- NOTE | 2024-06-23 13:41 | USCV_ITS ---
Manas Puente Age: 68 Gender: M : 1955 Exam Date: 06/23/2024 13:54 Ordering Phys: Pa Hall MD Technologist: CT Exam Location: [facility] [place]_ Indication: BLADDER CANCER, HI RISK MEDS BP: 154 / 82 HR: 75 Rhythm: Sinus Technical Quality: Adequate MEASUREMENTS (Male / Female) Normal Values 2D ECHO LVOT Diameter 2.0 cm LV Ejection Fraction MOD 4C 54.1 % LV Ejection Fraction MOD 2C 66.5 % LV Ejection Fraction 2C AL 68.6 % LA Diameter 3.0 cm RA Systolic Volume 4C AL 55.9 ml RA Systolic Volume 4C MOD 53.4 ml LA Sys Volume AL 35.4 cm cubed LA Sys Volume Index AL 17.7 cm cubed/m squared Aorta at Sinotubular Diameter 2.7 cm IVC Diameter 2.0 cm M-MODE LA Ao Ratio MM 1.1 AV Cusp Separation MM 2.2 cm FINDINGS Left Ventricle Normal left ventricular cavity size. Normal left ventricular systolic function. Left ventricular ejection fraction is estimated at 55 %. Right Ventricle Right Atrium Left Atrium Mitral Valve Mildly thickened mitral valve. No mitral valve stenosis. Mild mitral valve regurgitation. Aortic Valve Tricuspid Valve Pulmonic Valve Pericardium Aorta IVC CONCLUSIONS Normal left ventricular cavity size. Normal left ventricular systolic function. Left ventricular ejection fraction is estimated at 55 %. Mildly thickened mitral valve. No mitral valve stenosis. Mild mitral valve regurgitation. There is no pericardial effusion. Right atrial pressure is around 5 mm of mercury. Christelle Pradhan MD (Electronically Signed) Final Date: 25 June 2024 21:30 S
== END 2024-06-23 13:32 | disposition home or self-care (01) ==
LOC: RAD 13:34
PROVIDERS: PCP Electrodiagnostic Medicine; Visit Provider Internal Medicine Medical Oncology
DX: C67.9 Malignant neoplasm of bladder, unspecified (principal); E78.5 Hyperlipidemia, unspecified; I25.10 Atherosclerotic heart disease of native coronary artery without angina pectoris; Z79.899 Other long term (current) drug therapy; Z98.890 Other specified postprocedural states; I34.0 Nonrheumatic mitral (valve) insufficiency
CPT/HCPCS: 36573; 71045; 80053; 80061; 85025; 93308

== ENCOUNTER 2024-07-07 12:56 | Oncology outpatient (recurring) (ONCR) | payer MEDICARE, SELFPAY ==
[2024-06-30 08:43] LABS: Basophils % 0.6 %; Eosinophils # 0.1 10^3/uL (0.0-0.8); Eosinophils % 2.1 %; Hematocrit 40.9 % (37-53); Lymphocytes # 1.5 10^3/uL (0.8-4.8); Lymphocytes % 31.8 %; Mean Corpuscular Hemoglobin 31.1 pg (27-33); Mean Corpuscular Volume 88.9 fl (82-101); Mean Platelet Volume 10.4 fL (7.4-10.4); Monocytes # 0.5 10^3/uL (0.2-0.9); Monocytes % 10.5 %; Neutrophils # 2.66 10^3/uL (1.8-7.7); Neutrophils % 54.8 %; Nucleated Red Blood Cells % 0 %; Platelet Count 206 10^3/cmm (157-399); Red Cell Distribution Width 12.3 % (12.1-15.1); White Blood Count 4.85 10^3/uL (3.29-11.43)
[2024-06-30 08:57] LABS: Alanine Aminotransferase 22 U/L (0-41); Albumin Level 4.1 g/dL (3.5-5.2); Alkaline Phosphatase 111 U/L (40-130); Blood Urea Nitrogen 11 mg/dL (8-23); Calcium 8.7 mg/dL (8.5-10.5); Carbon Dioxide 23 mmol/L (22-29); Chloride 105 mmol/L (98-107); Creatinine Clr Calc Pharmacy 97.7298; Globulin 2.5 g/dL (1.3-4.6); Glomerular Filtration Rate 96.4 mL/min (90-130); Glucose 101 mg/dL (65-115); Osmolality Calculated 288 mOsm/kg (285-295); Sodium 139 mmol/L (136-145); Total Bilirubin 0.5 mg/dL (0.15-1.2); Total Protein 6.6 g/dL (6.6-8.7)
[2024-06-30 09:25] LABS: Anion Gap 15.7 (5-19); Aspartate Amino Transferase 26 U/L (0-40); Potassium 4.7 mmol/L (3.5-5.1)
[2024-06-30] MEDS: sodium chlor 0.9% + KCl 20 mEq 20 MEQ/1,000 ML BAG 800 MEQ IV (11:20)
[2024-06-30] MEDS: magnesium sulfate premix 2 GM/50 ML PIGGYBACK IV (11:53)
[2024-06-30] MEDS: OLANZapine 5 mg TABLET PO (12:50)
[2024-06-30] MEDS: sodium chloride 0.9% 500 ML 999 ML IV (12:50)
[2024-06-30] MEDS: dexamethasone 4 mg/mL INJ 12 MG IVP (12:51)
[2024-06-30] MEDS: palonosetron 0.25 mg/5 mL SDV IVP (12:51)
[2024-06-30] MEDS: diphenhydrAMINE 50 mg/mL SDV 1mL 25 MG IVP (12:55)
[2024-06-30] MEDS: famotidine 20 mg/2 mL INJ IVP (12:57)
[2024-06-30] MEDS: fosaprepitant 150 MG in sodium chloride 0.9% 150 ML 300 MG IV (13:00)
[2024-06-30] MEDS: METHOTREXATE 50 MG/2 ML IVP (13:52)
[2024-06-30] MEDS: [UNRECOGNIZED DRUG - OTHER] IVP (13:52)
[2024-06-30] MEDS: vinBLAStine 6 MG in sodium chloride 0.9% 50 ML 224 MG IV (14:04)
[2024-06-30] MEDS: DOXORUBICIN IV (14:40)
[2024-06-30] MEDS: [UNRECOGNIZED DRUG - OTHER] IV (14:40)
[2024-06-30] MEDS: CISPLATIN IV (14:55)
[2024-06-30] MEDS: SODIUM CHLORIDE 0.9% IV (14:55)
[2024-06-30] MEDS: FUROsemide 10 mg/mL SDV 2mL 20 MG IV (16:01)
[2024-06-30] MEDS: potassium chloride 20 MEQ in sodium chloride 0.9% 500 ML 500 MEQ IV (16:01)
[2024-06-30] MEDS: pegfilgrastim 6 mg/0.6 mL Kit (onpro) SUBCUT (16:08)
[2024-06-30 16:57] VITALS: BP 155/89; PULSE 65; TEMP 35.9; O2SAT 98
[2024-07-07 13:29] LABS: Basophils # 0.1 10^3/uL (0.0-0.1); Basophils % 1.3 %; Eosinophils # 0.2 10^3/uL (0.0-0.8); Eosinophils % 2.8 %; Hematocrit 40.6 % (37-53); Lymphocytes # 1.9 10^3/uL (0.8-4.8); Lymphocytes % 30.8 %; Mean Corpuscular HGB Conc 34.5 g/dL (30-55); Mean Corpuscular Volume 89.8 fl (82-101); Mean Platelet Volume 10.9 fL (7.4-10.4); Monocytes # 0.5 10^3/uL (0.2-0.9); Monocytes % 8.4 %; Neutrophils # 3.36 10^3/uL (1.8-7.7); Neutrophils % 55.2 %; Nucleated Red Blood Cells % 0 %; Platelet Count 151 10^3/cmm (157-399); Red Blood Count 4.52 10^6/uL (3.85-5.65); Red Cell Distribution Width 12.2 % (12.1-15.1); White Blood Count 6.08 10^3/uL (3.29-11.43)
[2024-07-07 13:47] LABS: Alanine Aminotransferase 32 U/L (0-41); Alkaline Phosphatase 133 U/L (40-130); Anion Gap 17.9 (5-19); Aspartate Amino Transferase 18 U/L (0-40); Blood Urea Nitrogen 18 mg/dL (8-23); Calcium 8.9 mg/dL (8.5-10.5); Carbon Dioxide 23 mmol/L (22-29); Chloride 98 mmol/L (98-107); Creatinine Clr Calc Pharmacy 98.1896; Globulin 2.4 g/dL (1.3-4.6); Glomerular Filtration Rate 112.5 mL/min (90-130); Glucose 138 mg/dL (65-115); Osmolality Calculated 284 mOsm/kg (285-295); Potassium 3.9 mmol/L (3.5-5.1); Sodium 135 mmol/L (136-145); Total Bilirubin 0.3 mg/dL (0.15-1.2); Total Protein 6.4 g/dL (6.6-8.7)
[2024-07-07 13:55] LABS: Slide Review Slide Review Perform
== END 2024-07-07 23:59 | disposition home or self-care (01) ==
PROVIDERS: Nurse Practitioner Family; PCP Electrodiagnostic Medicine; Visit Provider Radiology Radiation Oncology
DX: Z53.9 Procedure and treatment not carried out, unspecified reason (principal); C67.3 Malignant neoplasm of anterior wall of bladder; Z79.899 Other long term (current) drug therapy; Z79.52 Long term (current) use of systemic steroids; Z87.891 Personal history of nicotine dependence; Z79.69 Long term (current) use of other immunomodulators and immunosuppressants
CPT/HCPCS: 36573; 36592; 71045; 80053; 80061; 85025; 93308; 96367; 96368; 96372; 96375; 96377; 96411; 96413; 96417; 99205; 99213; 99215; J1100; J1200; J1453; J1940; J2469; J2506; J3475; J3480; J3490; J7040; J9000; J9060; J9260; J9360

== ENCOUNTER 2024-07-30 08:00 | Oncology outpatient (recurring) (ONCR) | payer MEDICARE, SELFPAY ==
[2024-07-15 08:02] LABS: Basophils # 0.1 10^3/uL (0.0-0.1); Eosinophils # 0.1 10^3/uL (0.0-0.8); Eosinophils % 0.9 %; Hematocrit 40.9 % (37-53); Lymphocytes # 1.7 10^3/uL (0.8-4.8); Lymphocytes % 19.6 %; Mean Corpuscular HGB Conc 34.5 g/dL (30-55); Mean Corpuscular Hemoglobin 30.8 pg (27-33); Mean Corpuscular Volume 89.3 fl (82-101); Monocytes # 0.7 10^3/uL (0.2-0.9); Monocytes % 7.5 %; Neutrophils % 65.6 %; Nucleated Red Blood Cells % 0 %; Platelet Count 196 10^3/cmm (157-399); Red Blood Count 4.58 10^6/uL (3.85-5.65); Red Cell Distribution Width 12.7 % (12.1-15.1); White Blood Count 8.69 10^3/uL (3.29-11.43)
[2024-07-15 08:08] VITALS: BP 183/103; PULSE 78; RESP 16; TEMP 36.5; O2SAT 97
[2024-07-15 08:18] VITALS: BP 155/84
[2024-07-15 08:19] LABS: Alanine Aminotransferase 27 U/L (0-41); Albumin Level 4.1 g/dL (3.5-5.2); Alkaline Phosphatase 148 U/L (40-130); Anion Gap 16.1 (5-19); Aspartate Amino Transferase 22 U/L (0-40); Blood Urea Nitrogen 14 mg/dL (8-23); Calcium 8.6 mg/dL (8.5-10.5); Carbon Dioxide 24 mmol/L (22-29); Chloride 103 mmol/L (98-107); Globulin 2.3 g/dL (1.3-4.6); Glomerular Filtration Rate 96.4 mL/min (90-130); Glucose 114 mg/dL (65-115); Osmolality Calculated 289 mOsm/kg (285-295); Potassium 4.1 mmol/L (3.5-5.1); Sodium 139 mmol/L (136-145); Total Bilirubin 0.2 mg/dL (0.15-1.2); Total Protein 6.4 g/dL (6.6-8.7)
[2024-07-15] MEDS: magnesium sulfate premix 2 GM/50 ML PIGGYBACK IV (08:19)
[2024-07-15] MEDS: sodium chlor 0.9% + KCl 20 mEq 20 MEQ/1,000 ML BAG 999 MEQ IV (08:23)
[2024-07-15 08:47] LABS: Slide Review Slide Review Perform
[2024-07-15] MEDS: OLANZapine 5 mg TABLET PO (10:34)
[2024-07-15] MEDS: sodium chloride 0.9% 500 ML 45 ML IV (10:35)
[2024-07-15] MEDS: diphenhydrAMINE 50 mg/mL SDV 1mL 25 MG IVP (10:36)
[2024-07-15] MEDS: dexamethasone 4 mg/mL INJ 12 MG IVP (10:36)
[2024-07-15] MEDS: fosaprepitant 150 MG in sodium chloride 0.9% 150 ML 300 MG IV (10:37)
[2024-07-15] MEDS: palonosetron 0.25 mg/5 mL SDV IVP (10:37)
[2024-07-15] MEDS: famotidine 20 mg/2 mL INJ IVP (10:37)
[2024-07-15] MEDS: METHOTREXATE 50 MG/2 ML IVP (11:50)
[2024-07-15] MEDS: [UNRECOGNIZED DRUG - OTHER] IVP (11:50)
[2024-07-15] MEDS: DOXORUBICIN IV (12:00)
[2024-07-15] MEDS: [UNRECOGNIZED DRUG - OTHER] IV (12:00)
[2024-07-15] MEDS: vinBLAStine 6 MG in sodium chloride 0.9% 50 ML 224 MG IV (12:20)
[2024-07-15] MEDS: FUROsemide 10 mg/mL SDV 2mL 20 MG IVP (12:21)
[2024-07-15] MEDS: SODIUM CHLORIDE 0.9% IV (12:49)
[2024-07-15] MEDS: CISPLATIN IV (12:49)
[2024-07-15] MEDS: potassium chloride 20 MEQ in sodium chloride 0.9% 500 ML 500 MEQ IV (14:04)
[2024-07-15] MEDS: pegfilgrastim 6 mg/0.6 mL Kit (onpro) SUBCUT (15:12)
[2024-07-15 15:29] VITALS: BP 151/87; PULSE 76; RESP 17; TEMP 37; O2SAT 98
[2024-07-21 08:32] LABS: Basophils % 0.2 %; Eosinophils % 0.3 %; Hematocrit 43.8 % (37-53); Lymphocytes # 1.9 10^3/uL (0.8-4.8); Lymphocytes % 16.7 %; Mean Corpuscular HGB Conc 34.2 g/dL (30-55); Mean Corpuscular Hemoglobin 30.8 pg (27-33); Mean Corpuscular Volume 89.9 fl (82-101); Mean Platelet Volume 10.5 fL (7.4-10.4); Monocytes # 0.4 10^3/uL (0.2-0.9); Monocytes % 3.3 %; Neutrophils # 8.91 10^3/uL (1.8-7.7); Neutrophils % 76.4 %; Nucleated Red Blood Cells % 0 %; Platelet Count 213 10^3/cmm (157-399); Red Blood Count 4.87 10^6/uL (3.85-5.65); Red Cell Distribution Width 12.8 % (12.1-15.1); White Blood Count 11.65 10^3/uL (3.29-11.43)
[2024-07-21 08:48] LABS: Alanine Aminotransferase 33 U/L (0-41); Albumin Level 4.4 g/dL (3.5-5.2); Alkaline Phosphatase 211 U/L (40-130); Anion Gap 15.2 (5-19); Aspartate Amino Transferase 23 U/L (0-40); Blood Urea Nitrogen 18 mg/dL (8-23); Calcium 9.3 mg/dL (8.5-10.5); Carbon Dioxide 27 mmol/L (22-29); Chloride 95 mmol/L (98-107); Creatinine Clr Calc Pharmacy 98.1896; Globulin 2.5 g/dL (1.3-4.6); Glomerular Filtration Rate 112.5 mL/min (90-130); Glucose 89 mg/dL (65-115); Osmolality Calculated 277 mOsm/kg (285-295); Potassium 4.2 mmol/L (3.5-5.1); Sodium 133 mmol/L (136-145); Total Bilirubin 0.6 mg/dL (0.15-1.2); Total Protein 6.9 g/dL (6.6-8.7)
[2024-07-29 09:18] LABS: Basophils # 0.1 10^3/uL (0.0-0.1); Basophils % 1.1 %; Eosinophils # 0.1 10^3/uL (0.0-0.8); Eosinophils % 0.6 %; Hematocrit 39.8 % (37-53); Lymphocytes # 2.4 10^3/uL (0.8-4.8); Lymphocytes % 19.9 %; Mean Corpuscular HGB Conc 34.2 g/dL (30-55); Mean Corpuscular Hemoglobin 30.4 pg (27-33); Mean Corpuscular Volume 88.8 fl (82-101); Mean Platelet Volume 10.5 fL (7.4-10.4); Monocytes # 1.1 10^3/uL (0.2-0.9); Monocytes % 9.6 %; Neutrophils # 7.58 10^3/uL (1.8-7.7); Neutrophils % 63.8 %; Nucleated Red Blood Cells % 0 %; Platelet Count 167 10^3/cmm (157-399); Red Blood Count 4.48 10^6/uL (3.85-5.65); Red Cell Distribution Width 13.4 % (12.1-15.1); White Blood Count 11.89 10^3/uL (3.29-11.43)
[2024-07-29 09:34] LABS: Alanine Aminotransferase 24 U/L (0-41); Albumin Level 4.1 g/dL (3.5-5.2); Alkaline Phosphatase 154 U/L (40-130); Anion Gap 13.2 (5-19); Aspartate Amino Transferase 22 U/L (0-40); Blood Urea Nitrogen 13 mg/dL (8-23); Calcium 8.6 mg/dL (8.5-10.5); Carbon Dioxide 27 mmol/L (22-29); Chloride 105 mmol/L (98-107); Creatinine Clr Calc Pharmacy 87.2796; Globulin 2.3 g/dL (1.3-4.6); Glomerular Filtration Rate 84.2 mL/min (90-130); Glucose 117 mg/dL (65-115); Osmolality Calculated 293 mOsm/kg (285-295); Potassium 4.2 mmol/L (3.5-5.1); Sodium 141 mmol/L (136-145); Total Bilirubin 0.2 mg/dL (0.15-1.2); Total Protein 6.4 g/dL (6.6-8.7)
[2024-07-29 10:56] VITALS: BP 154/87; PULSE 72; RESP 18; TEMP 36.7; O2SAT 95
[2024-07-30 08:00] VITALS: BP 131/80; PULSE 72; RESP 16; TEMP 36.8; O2SAT 97
[2024-07-30] MEDS: sodium chlor 0.9% + KCl 20 mEq 20 MEQ/1,000 ML BAG 500 MEQ IV (08:09)
[2024-07-30] MEDS: magnesium sulfate premix 2 GM/50 ML PIGGYBACK IV (08:10)
[2024-07-30] MEDS: sodium chloride 0.9% 500 ML 75 ML IV (09:21)
[2024-07-30] MEDS: famotidine 20 mg/2 mL INJ IVP (09:22)
[2024-07-30] MEDS: palonosetron 0.25 mg/5 mL SDV IVP (09:25)
[2024-07-30] MEDS: dexamethasone 4 mg/mL INJ 12 MG IVP (09:27)
[2024-07-30] MEDS: diphenhydrAMINE 50 mg/mL SDV 1mL 25 MG IVP (09:34)
[2024-07-30] MEDS: OLANZapine 5 mg TABLET PO (09:37)
[2024-07-30] MEDS: fosaprepitant 150 MG in sodium chloride 0.9% 150 ML 300 MG IV (10:01)
[2024-07-30] MEDS: METHOTREXATE 50 MG/2 ML IVP (11:06)
[2024-07-30] MEDS: [UNRECOGNIZED DRUG - OTHER] IVP (11:06)
[2024-07-30] MEDS: vinBLAStine 6 MG in sodium chloride 0.9% 50 ML 224 MG IV (11:15)
[2024-07-30] MEDS: [UNRECOGNIZED DRUG - OTHER] IV (11:40)
[2024-07-30] MEDS: DOXORUBICIN IV (11:40)
[2024-07-30] MEDS: SODIUM CHLORIDE 0.9% IV (11:57)
[2024-07-30] MEDS: CISPLATIN IV (11:57)
[2024-07-30] MEDS: FUROsemide 10 mg/mL SDV 2mL 20 MG IVP (13:12)
[2024-07-30] MEDS: potassium chloride 20 MEQ in sodium chloride 0.9% 500 ML 500 MEQ IV (13:15)
[2024-07-30] MEDS: pegfilgrastim 6 mg/0.6 mL Kit (onpro) SUBCUT (13:18)
[2024-07-30 14:30] VITALS: BP 150/83; PULSE 80; RESP 16; TEMP 36.2; O2SAT 97
== END 2024-07-30 23:59 | disposition home or self-care (01) ==
PROVIDERS: Nurse Practitioner Family; PCP Electrodiagnostic Medicine; Visit Provider Radiology Radiation Oncology
DX: Z51.11 Encounter for antineoplastic chemotherapy (principal); Z53.9 Procedure and treatment not carried out, unspecified reason; Z79.899 Other long term (current) drug therapy; C63.7 Malignant neoplasm of other specified male genital organs
CPT/HCPCS: 36592; 80053; 85025; 96361; 96367; 96375; 96377; 96411; 96413; 96417; 99214; J1100; J1200; J1453; J1940; J2469; J2506; J3475; J3480; J3490; J7040; J9000; J9060; J9260; J9360

== ENCOUNTER 2024-08-27 10:00 | Outpatient (CLI) | payer MEDICARE, SELFPAY ==
--- NOTE | 2024-08-27 10:00 | CT_ITS ---
WS: [id number] CT CHEST, ABDOMEN AND PELVIS WITH CONTRAST HISTORY: bladder cancer TECHNIQUE: Dual phase 2 mm axial imaging performed through the chest, abdomen and pelvis with IV cont rast, oral contrast has been provided. Coronal and sagittal reformats chest. Coronal and sagittal ref ormats through the abdomen and pelvis. All CT scans at [facility] use at least one of these d ose optimization techniques: automated exposure control; mA and/or kV adjustment per patient size (in cludes targeted exams where dose is matched to clinical indication); or iterative reconstruction. CONTRAST: Omnipaque 350; 100 mL IV. DLP: 1029.74 mGy.cm COMPARISON: 06/04/2024, 03/24/[address]: There are a few scattered pulmonary nodules. Majority of these nodules are 2 to 3 mm. Most of these nodules are also calcified. No new or enlarging pulmonary nodule. No pneumonia. No pericardi al or pleural effusions. Normal size aorta. Normal size pulmonary artery. Normal size heart. Mild cor onary artery and thoracic calcification. Calcified mediastinal and hilar lymph nodes. No adenopathy. Small hiatal hernia. Abdomen CT: Multiple scattered low-attenuation foci with the largest measuring 11 mm. These nodules a re stable and most likely cysts. Majority of these are too small to characterize. Surface of the live r is slightly irregular suggesting cirrhosis. Normal portal vein. Contracted gallbladder due to nonfa sting state. Normal size spleen. Normal adrenal glands and pancreas. No renal obstruction. Mild ather osclerosis aorta. Retroaortic LEFT renal vein. Normal mesenteric arteries. Stomach is distended with food products. There is mild wall thickening involving the proximal duodenu m which is probably due to peristalsis. Wall thickening did not persist on all phases of imaging. No small bowel obstruction. Mild diffuse constipation. Normal appendix. Kidneys are symmetric size. No solid mass or obstruction. On the delayed imaging ureters are very wel l distended with excreted contrast. No filling defects. Distal LEFT ureter with limited visualization but no obstruction. Small retroperitoneal lymph nodes that were described on the PET/CT are very difficult to visualize. No definite identifiable or measurable lymph nodes are noted today. Pelvic CT: Urinary bladder is well distended. Previously described asymmetric wall thickening has nearly complet lesli resolved. There is very mild wall thickening to 3.9 mm along the RIGHT lateral bladder. Stranding indicating lymphovascular invasion has resolved. Very slight enhancement along the RIGHT lateral uri nary bladder wall of the site of thickening.. Reidentified is the LEFT lateral bladder diverticulum. RIGHT inguinal lymph node 9.6 mm. There are few small lymph nodes along the RIGHT external iliac sammy n which are small caliber and slightly decreasing in size since the PET/CT. Very subtle lucency in the anterior L3 vertebral body was present on the prior studies and negative o n the PET/CT. CT/CT chest abdpel w/*[id number] IMPRESSION: 1. Minimal RIGHT lateral residual bladder wall thickening with minimal enhance ment measuring 3.9 mm. Significant improvement since the prior study. 2. No ureteral obstruction or mass identified. 3. Small RIGHT pelvic lymph nodes are reidentified. Largest lymph node is RIGH T inguinal measuring 9.6 mm and does not appear significantly changed. Smaller RIGHT external iliac chain lymph nodes have decreased in size. 4. The previously described retroperitoneal lymph nodes are not identified tod ay. 5. Stable very tiny pulmonary nodules. No new mass or enlarging nodule. 6. Hepatic cysts.
[2024-08-27] MEDS: iohexol 350 mg/mL 500 mL Btl (per mL) PO (11:26)
[2024-08-27] MEDS: iohexol 350 mg/mL 500 mL Btl (per mL) IV (11:26)
== END 2024-08-27 10:01 | disposition home or self-care (01) ==
LOC: RAD 10:06
PROVIDERS: PCP Electrodiagnostic Medicine; Visit Provider Internal Medicine Medical Oncology
DX: C67.3 Malignant neoplasm of anterior wall of bladder (principal); Q44.6 Cystic disease of liver; K44.9 Diaphragmatic hernia without obstruction or gangrene
CPT/HCPCS: 71260; 74177

== ENCOUNTER 2024-09-10 11:45 | Oncology outpatient (recurring) (ONCR) | payer MEDICARE, SELFPAY ==
[2024-08-12 08:18] LABS: Hematocrit 36.2 % (37-53); Mean Corpuscular HGB Conc 34.3 g/dL (30-55); Mean Corpuscular Volume 90.5 fl (82-101); Mean Platelet Volume 10.3 fL (7.4-10.4); Platelet Count 189 10^3/cmm (157-399); Red Cell Distribution Width 14.6 % (12.1-15.1); White Blood Count 17.91 10^3/uL (3.29-11.43)
[2024-08-12] MEDS: magnesium sulfate premix 2 GM/50 ML PIGGYBACK IV (08:53)
[2024-08-12] MEDS: sodium chlor 0.9% + KCl 20 mEq 20 MEQ/1,000 ML BAG 500 MEQ IV (08:53)
[2024-08-12 08:54] LABS: Absolute Neutrophil 11.5 10^3/cmm (1.4-6.5); Absolute Segmented Neutrophil 10.9 10/cmm (1.6-7.1); Band Neutrophils Absolute 0.5 10^3/cmm (0.0-1.2); Basophils Absolute 0.2 10^3/cmm (0.0-0.2); Eosinophils 0 %; Giant Platelets Trace; Lymphocytes 18 %; Lymphocytes Absolute 3.6 10^3/cmm (1.2-3.4); Monocytes Absolute 1.3 10^3/cmm (0.1-0.6); Platelet Estimate Normal (Normal); Segmented Neutrophils 61 %; Slide Review Slide Review Perform; Total Cells Counted 100 (0-100)
[2024-08-12 08:55] LABS: Alanine Aminotransferase 22 U/L (0-41); Albumin Level 4.1 g/dL (3.5-5.2); Alkaline Phosphatase 177 U/L (40-130); Anion Gap 15.5 (5-19); Aspartate Amino Transferase 20 U/L (0-40); Blood Urea Nitrogen 11 mg/dL (8-23); Calcium 8.6 mg/dL (8.5-10.5); Carbon Dioxide 25 mmol/L (22-29); Chloride 103 mmol/L (98-107); Globulin 2.1 g/dL (1.3-4.6); Glomerular Filtration Rate 96.4 mL/min (90-130); Glucose 115 mg/dL (65-115); Osmolality Calculated 288 mOsm/kg (285-295); Potassium 4.5 mmol/L (3.5-5.1); Sodium 139 mmol/L (136-145); Total Bilirubin 0.2 mg/dL (0.15-1.2); Total Protein 6.2 g/dL (6.6-8.7)
[2024-08-12] MEDS: sodium chloride 0.9% 500 ML 75 ML IV (10:30)
[2024-08-12] MEDS: dexamethasone 4 mg/mL INJ 12 MG IVP (10:32)
[2024-08-12] MEDS: famotidine 20 mg/2 mL INJ IVP (10:37)
[2024-08-12] MEDS: diphenhydrAMINE 50 mg/mL SDV 1mL 25 MG IVP (10:41)
[2024-08-12] MEDS: palonosetron 0.25 mg/5 mL SDV IVP (10:45)
[2024-08-12] MEDS: OLANZapine 5 mg TABLET PO (10:46)
[2024-08-12] MEDS: fosaprepitant 150 MG in sodium chloride 0.9% 150 ML 300 MG IV (10:54)
[2024-08-12] MEDS: [UNRECOGNIZED DRUG - OTHER] IVP (11:42)
[2024-08-12] MEDS: METHOTREXATE 50 MG/2 ML IVP (11:42)
[2024-08-12] MEDS: vinBLAStine 6 MG in sodium chloride 0.9% 50 ML 224 MG IV (11:48)
[2024-08-12] MEDS: DOXORUBICIN IV (12:16)
[2024-08-12] MEDS: [UNRECOGNIZED DRUG - OTHER] IV (12:16)
[2024-08-12] MEDS: CISPLATIN IV (12:31)
[2024-08-12] MEDS: SODIUM CHLORIDE 0.9% IV (12:31)
[2024-08-12] MEDS: FUROsemide 10 mg/mL SDV 2mL 20 MG IVP (13:53)
[2024-08-12] MEDS: pegfilgrastim 6 mg/0.6 mL Kit (onpro) SUBCUT (13:56)
[2024-08-12] MEDS: potassium chloride 20 MEQ in sodium chloride 0.9% 500 ML 255 MEQ IV (14:09)
[2024-08-12 15:20] VITALS: BP 174/68; PULSE 76; RESP 16; TEMP 36.2; O2SAT 99
--- NOTE | 2024-08-12 17:02 | PC.NURSE ---
Verbal order from Dr. Yee to remove pts PICC line after treatment. Removed pts PICC line, 42cm line removed. Line in tact. Pt tolerated well. Educated pt on leaving bandage on for 24 hours and to hold pressure if pt notices any bleeding.
[2024-09-09 12:56] LABS: Basophils % 0.7 %; Eosinophils # 0.1 10^3/uL (0.0-0.8); Eosinophils % 0.9 %; Hematocrit 33.4 % (37-53); Lymphocytes # 1.5 10^3/uL (0.8-4.8); Lymphocytes % 28.1 %; Mean Corpuscular HGB Conc 34.1 g/dL (30-55); Mean Corpuscular Hemoglobin 31.3 pg (27-33); Mean Corpuscular Volume 91.8 fl (82-101); Mean Platelet Volume 10.3 fL (7.4-10.4); Monocytes # 0.9 10^3/uL (0.2-0.9); Monocytes % 16.4 %; Neutrophils # 2.94 10^3/uL (1.8-7.7); Neutrophils % 53.7 %; Nucleated Red Blood Cells % 0 %; Platelet Count 235 10^3/cmm (157-399); Red Blood Count 3.64 10^6/uL (3.85-5.65); White Blood Count 5.48 10^3/uL (3.29-11.43)
[2024-09-09 13:13] LABS: Alanine Aminotransferase 14 U/L (0-41); Albumin Level 4.2 g/dL (3.5-5.2); Alkaline Phosphatase 100 U/L (40-130); Anion Gap 13.2 (5-19); Aspartate Amino Transferase 18 U/L (0-40); Blood Urea Nitrogen 12 mg/dL (8-23); Calcium 8.5 mg/dL (8.5-10.5); Carbon Dioxide 26 mmol/L (22-29); Chloride 102 mmol/L (98-107); Creatinine Clr Calc Pharmacy 98.2615; Glomerular Filtration Rate 112.5 mL/min (90-130); Glucose 91 mg/dL (65-115); Lactate Dehydrogenase 152 U/L (135-225); Osmolality Calculated 283 mOsm/kg (285-295); Potassium 4.2 mmol/L (3.5-5.1); Sodium 137 mmol/L (136-145); Total Bilirubin 0.5 mg/dL (0.15-1.2); Total Protein 6.2 g/dL (6.6-8.7)
--- NOTE | 2024-09-10 11:45 | USCV_ITS ---
Manas Puente Age: 68 Gender: M : 1955 Exam Date: 09/10/2024 12:03 Ordering Phys: Manolo Yee MD Technologist: CT Exam Location: [facility] [place]_ Indication: ef BP: 138 / 80 HR: Rhythm: Sinus Technical Quality: Adequate MEASUREMENTS (Male / Female) Normal Values 2D ECHO LVOT Diameter 2.0 cm LV Ejection Fraction MOD 4C 64.6 % LV Ejection Fraction MOD 2C 63.7 % LV Ejection Fraction 2C AL 64.1 % LA Diameter 3.0 cm RA Systolic Volume 4C AL 40.2 ml RA Systolic Volume 4C MOD 39.3 ml LA Sys Volume AL 50.9 cm cubed LA Sys Volume Index AL 25.5 cm cubed/m squared Aorta at Sinotubular Diameter 2.5 cm IVC Diameter 1.7 cm M-MODE LA Ao Ratio MM 1.0 AV Cusp Separation MM 2.2 cm FINDINGS Left Ventricle Normal left ventricular size, systolic function and wall thickness, with no regional wall motion abnormalities. Estimated LVEF normal 62%. Right Ventricle Normal right ventricular size and systolic function. Right Atrium Normal right atrial size. Left Atrium Normal left atrial size. Mitral Valve Aortic Valve Tricuspid Valve Pulmonic Valve Pericardium No pericardial effusion. Aorta IVC Normal inferior vena cava. CONCLUSIONS Limited echo to assess LV systolic function. Normal left ventricular size and function with an estimated ejection fraction of 60 %. Normal RV size and RV systolic function. Leena Mcneil MD (Electronically Signed) Final Date: 10 September 2024 15:12 S
== END 2024-09-11 23:59 | disposition home or self-care (01) ==
LOC: ONCMED 11:47
PROVIDERS: Internal Medicine Medical Oncology; PCP Electrodiagnostic Medicine; Visit Provider Internal Medicine Hematology & Oncology
DX: Z53.9 Procedure and treatment not carried out, unspecified reason; C67.3 Malignant neoplasm of anterior wall of bladder
CPT/HCPCS: 36415; 80053; 83615; 85007; 85025; 93308; 96361; 96367; 96375; 96377; 96411; 96413; 96417; 99214; J1100; J1200; J1453; J1940; J2469; J2506; J3475; J3480; J3490; J7040; J9000; J9060; J9260; J9360

== ENCOUNTER 2024-12-03 08:50 | Oncology outpatient (recurring) (ONCR) | payer MEDICARE, SELFPAY ==
[2024-12-03 09:15] LABS: Basophils % 0.5 %; Eosinophils # 0.1 10^3/uL (0.0-0.8); Eosinophils % 1.8 %; Hematocrit 37.2 % (37-53); Lymphocytes # 1.6 10^3/uL (0.8-4.8); Lymphocytes % 41.6 %; Mean Corpuscular HGB Conc 33.9 g/dL (30-55); Mean Corpuscular Hemoglobin 31.2 pg (27-33); Mean Corpuscular Volume 92.1 fl (82-101); Mean Platelet Volume 10.1 fL (7.4-10.4); Monocytes # 0.5 10^3/uL (0.2-0.9); Monocytes % 12.7 %; Neutrophils # 1.66 10^3/uL (1.8-7.7); Neutrophils % 43.1 %; Nucleated Red Blood Cells % 0 %; Platelet Count 207 10^3/cmm (157-399); Red Blood Count 4.04 10^6/uL (3.85-5.65); Red Cell Distribution Width 12.2 % (12.1-15.1); White Blood Count 3.85 10^3/uL (3.29-11.43)
[2024-12-03 09:41] LABS: Alanine Aminotransferase 29 U/L (0-41); Albumin Level 4.4 g/dL (3.5-5.2); Alkaline Phosphatase 100 U/L (40-130); Anion Gap 16.4 (5-19); Aspartate Amino Transferase 28 U/L (0-40); Blood Urea Nitrogen 18 mg/dL (8-23); Calcium 9.5 mg/dL (8.5-10.5); Carbon Dioxide 25 mmol/L (22-29); Chloride 104 mmol/L (98-107); Creatinine Clr Calc Pharmacy 85.2361; Globulin 2.5 g/dL (1.3-4.6); Glomerular Filtration Rate 84.2 mL/min (90-130); Glucose 94 mg/dL (65-115); Lactate Dehydrogenase 144 U/L (135-225); Magnesium 1.7 mg/dL (1.7-2.3); Osmolality Calculated 294 mOsm/kg (285-295); Potassium 4.4 mmol/L (3.5-5.1); Sodium 141 mmol/L (136-145); Total Bilirubin 0.3 mg/dL (0.15-1.2); Total Protein 6.9 g/dL (6.6-8.7)
== END 2024-12-12 23:59 | disposition home or self-care (01) ==
PROVIDERS: Internal Medicine Hematology & Oncology; PCP Electrodiagnostic Medicine; Visit Provider Internal Medicine
DX: C67.3 Malignant neoplasm of anterior wall of bladder (principal); R91.8 Other nonspecific abnormal finding of lung field; R19.09 Other intra-abdominal and pelvic swelling, mass and lump; I25.10 Atherosclerotic heart disease of native coronary artery without angina pectoris; I10 Essential (primary) hypertension; E78.5 Hyperlipidemia, unspecified; I27.21 Secondary pulmonary arterial hypertension; Z87.891 Personal history of nicotine dependence; Z92.21 Personal history of antineoplastic chemotherapy
CPT/HCPCS: 36415; 80053; 83615; 83735; 85025; 99213

== ENCOUNTER → 2025-02-24 08:50 | Outpatient (BNVA) | payer MEDICARE, SELFPAY | PROVIDERS: PCP Electrodiagnostic Medicine; Visit Provider Student in an Organized Health Care Education/Training Program | DX: M25.512 Pain in left shoulder (principal); M19.012 Primary osteoarthritis, left shoulder | CPT/HCPCS: 73030; 99204 ==

== ENCOUNTER 2025-03-09 10:49 | Outpatient (CLI) | payer MEDICARE, SELFPAY ==
[2025-03-09 11:31] LABS: Basophils % 0.6 %; Eosinophils # 0.1 10^3/uL (0.0-0.8); Hematocrit 38.9 % (37-53); Lymphocytes # 1.4 10^3/uL (0.8-4.8); Lymphocytes % 27.2 %; Mean Corpuscular HGB Conc 33.7 g/dL (30-55); Mean Corpuscular Hemoglobin 31.3 pg (27-33); Mean Corpuscular Volume 93.1 fl (82-101); Mean Platelet Volume 10.4 fL (7.4-10.4); Monocytes # 0.5 10^3/uL (0.2-0.9); Monocytes % 10.4 %; Neutrophils # 3.03 10^3/uL (1.8-7.7); Neutrophils % 60.6 %; Nucleated Red Blood Cells % 0 %; Platelet Count 217 10^3/cmm (157-399); Red Blood Count 4.18 10^6/uL (3.85-5.65); Red Cell Distribution Width 12.4 % (12.1-15.1)
[2025-03-09 12:05] LABS: Alanine Aminotransferase 19 U/L (0-41); Albumin Level 4.6 g/dL (3.5-5.2); Alkaline Phosphatase 104 U/L (40-130); Anion Gap 14.3 (5-19); Aspartate Amino Transferase 20 U/L (0-40); Blood Urea Nitrogen 20 mg/dL (8-23); Calcium 9.4 mg/dL (8.5-10.5); Carbon Dioxide 26 mmol/L (22-29); Chloride 104 mmol/L (98-107); Globulin 2.4 g/dL (1.3-4.6); Glomerular Filtration Rate 83.9 mL/min (90-130); Glucose 81 mg/dL (65-115); Osmolality Calculated 292 mOsm/kg (285-295); Potassium 4.3 mmol/L (3.5-5.1); Sodium 140 mmol/L (136-145); Total Bilirubin 0.4 mg/dL (0.15-1.2)
== END 2025-03-09 10:50 | disposition home or self-care (01) ==
PROVIDERS: PCP Electrodiagnostic Medicine; Visit Provider Urology
DX: C67.3 Malignant neoplasm of anterior wall of bladder (principal)
CPT/HCPCS: 36415; 80053; 84075; 84080; 85025

== ENCOUNTER → 2025-03-27 09:11 | Outpatient (BNVA) | payer MEDICARE, SELFPAY | PROVIDERS: PCP Electrodiagnostic Medicine; Visit Provider Student in an Organized Health Care Education/Training Program | DX: M19.012 Primary osteoarthritis, left shoulder (principal) | CPT/HCPCS: 20610; 77002; J3301; J9999 ==

== ENCOUNTER → 2025-04-07 08:04 | Outpatient (BNVA) | payer MEDICARE, SELFPAY | PROVIDERS: PCP Electrodiagnostic Medicine; Visit Provider Student in an Organized Health Care Education/Training Program | DX: M79.641 Pain in right hand (principal); M65.341 Trigger finger, right ring finger | CPT/HCPCS: 73130; 99214 ==

== ENCOUNTER 2025-04-21 13:09 | Outpatient (CLI) | payer MEDICARE, SELFPAY ==
--- NOTE | 2025-04-21 13:14 | CT_ITS ---
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 Coronal and sagittal reformats chest. Coronal and sagittal reformats through the abdomen and pelvis. All CT scans at [facility] use at least one of these dose optimization techniques: automated exposure control; mA and/or kV adjustment per patient size (includes targeted exams where dose is matched to clinical indication); or iterative reconstruction. CONTRAST: Omnipaque 350; 100 mL IV. DLP: 1919.78 mGy.cm COMPARISON: 08/27/2024, 03/24/2024, PET/CT 06/17/[address]: Lungs are well expanded. Calcified benign granulomata scattered throughout both lungs. No mass, noncalcified nodule or pneumonia. No endobronchial lesions. Mild atherosclerosis aorta. Normal size pulmonary artery. Heart size is normal. No pericardial or pleural effusions. Benign mediastinal a nd hilar calcified lymph nodes. Small hiatal hernia. Abdomen CT: Normal size liver with scattered tiny low-attenuation nodules which do not enhance. Some of these nodules are too small to characterize. Others are cysts. Findings are similar to the prior examination. Splenic and hepatic granulomata. Normal size spleen. Normal gallbladder and pancreas. No adrenal mass. Kidneys are normal size. No obstruction or mass identified. Prominent bilateral extrarenal pelves. No calyceal dilatation. Since the prior CT patient is undergone a cystectomy with ileal diversion. No ascites or adenopathy. There are very small shotty retroperitoneal lymph nodes. No enlarged lymph nodes along the iliac chains. No pelvic lymphadenopathy. Pelvic CT: No free fluid. Prior cystectomy. Prior prostatectomy. Mixed sclerotic stable RIGHT iliac bone lesion. CT/CT abdpel wo/w [id number] IMPRESSION: 1. New since the prior CT of 08/27/2024 is a cystoprostatectomy with ileal div ersion. 2. No renal obstruction is identified. No enhancing renal masses. There is dyana y slight dilatation of the extrarenal pelves and ureters but not unusual for an ileal diversion. 3. No metastatic adenopathy within the chest, abdomen or pelvis identified. 4. Atherosclerosis aorta. 5. Prior pulmonary calcified granulomatous disease. No metastatic nodules. 6. Hepatic cysts. Additional too small to characterize hepatic low-attenuation nodules.
[2025-04-21] MEDS: iohexol 350 mg/mL 500 mL Btl (per mL) IV (13:51)
== END 2025-04-21 13:10 | disposition home or self-care (01) ==
PROVIDERS: PCP Electrodiagnostic Medicine; Visit Provider Urology
DX: C67.3 Malignant neoplasm of anterior wall of bladder (principal); C61 Malignant neoplasm of prostate; Z98.890 Other specified postprocedural states; I70.0 Atherosclerosis of aorta; J84.10 Pulmonary fibrosis, unspecified; K76.89 Other specified diseases of liver; R93.2 Abnormal findings on diagnostic imaging of liver and biliary tract; R59.0 Localized enlarged lymph nodes; K44.9 Diaphragmatic hernia without obstruction or gangrene; D73.89 Other diseases of spleen; K75.3 Granulomatous hepatitis, not elsewhere classified; N28.89 Other specified disorders of kidney and ureter; M89.9 Disorder of bone, unspecified
CPT/HCPCS: 71260; 74178

== ENCOUNTER → 2025-07-01 09:45 | Outpatient (BNVA) | payer MEDICARE, SELFPAY | PROVIDERS: PCP Electrodiagnostic Medicine; Visit Provider Student in an Organized Health Care Education/Training Program | DX: M19.012 Primary osteoarthritis, left shoulder (principal) | CPT/HCPCS: 99213 ==

== ENCOUNTER 2025-07-09 10:44 | Observation (INO) | payer MEDICARE, SELFPAY ==
--- OUTSIDE RECORDS SUMMARY | 2024-12-17 00:59 | XMS_ITS | Continuity of Care Document ---
Author Name [facility] Address [address] [place] [address] Organization [facility] Team Providers Care Desk Manager Name Role Phone [facility] Unavailable Unavailable Problems Problem Status Onset Date Problem Type Date of Resolution Comments Source Malignant tumor of urinary bladder (disorder) 11/03/2024 Diagnosis Preprocedural examination done 09/30/2024 Diagnosis Coronary arteriosclerosis (disorder) Active Condition Dyslipidemia (disorder) Active Condition Hypertensive disorder, systemic arterial (disorder) Active Condition Hypothyroidism (disorder) Active Condition Malignant tumor of urinary bladder (disorder) Active Condition Acute posthemorrhagic anemia (disorder) Diagnosis Hypothyroidism (disorder) Diagnosis Hyperlipidemia (disorder) Diagnosis Essential hypertension (disorder) Diagnosis Atherosclerosis of coronary artery (disorder) Diagnosis Benign prostatic hypertroph without outflow obstruction (disorder) Diagnosis Postoperative pain (finding) Diagnosis Long-term current use of aspirin (situation) Diagnosis Hormone replacement monitoring status (finding) Diagnosis History of - Disorder (context-dependent category) Diagnosis History of percutaneous transluminal coronary angioplasty (situation) Diagnosis Long-term current use of drug therapy (situation) Diagnosis Malignant neoplasm of bladder, unspecified Active Diagnosis Allergies, Adverse Reactions, Alerts Substance Category Reaction Severity Reaction type Status Date Reported Comments Source codeine Assertion Nausea Mild Propensity to adverse reactions to drug Active [facility] Results Order Name Results Value Reference Range Date Interpretation Comments Source GENERAL CHEMISTRY Prostate Specific Antigen <0.04 ng/mL 12/16 15:51 :00 [facility] GENERAL CHEMISTRY Glucose Lvl 105 mg/dL 70 - 139 12/16 15:51 :00 [facility] GENERAL CHEMISTRY Calcium 9.3 mg/dL 8.3 - 10.6 12/16 15:51 :00 [facility] GENERAL CHEMISTRY BUN 14 mg/dL 8 - 23 12/16 15:51 :00 [facility] GENERAL CHEMISTRY ALT-SGPT 26 U/L 10 - 50 12/16 15:51 :00 [facility] GENERAL CHEMISTRY Creatinine, standardized 0.9 mg/dL 0.7 - 1.2 12/16 15:51 :00 Interpretive Data: Bgeoin-ml-czt e transgender patients on testosterone therapy should have results assessed using the male reference range. Otyn-gl-cwpbc e transgender patients on hormone-modul ating therapy clinical judgment is advisedfor assessment. [facility] GENERAL CHEMISTRY Alkaline Phosphatase 97 U/L 40 - 129 12/16 15:51 :00 [facility] GENERAL CHEMISTRY Total Protein 6.8 g/dL 5.7 - 8.2 12/16 15:51 :00 [facility] GENERAL CHEMISTRY T Bili 0.60 mg/dL 0.30 - 1.20 12/16 15:51 :00 [facility] GENERAL CHEMISTRY Estimated GFR for peds Not Calculated mL/min/1.7 3m 12/16 15:51 :00 Interpretive Data: The estimated GFR was calculated using the Vanessa collins Fowler equation (2009) . Reference: Pediatric GFR calculator at [employer] Website. [facility] CHEMISTRY Estimated GFR for Adults 94 mL/min/1.7 3m 12/16 15:51 :00 Interpretive Data: Changed to CKD-EPI 2020 on 2020. [facility] GENERAL CHEMISTRY Albumin 4.1 g/dL 3.4 - 5.0 12/16 15:51 :00 [facility] GENERAL CHEMISTRY AST-SGOT 25 U/L 12/16 15:51 :00 [facility] GENERAL CHEMISTRY Anion gap 10 mmol/L 0 - 20 12/16 15:51 :00 [facility] GENERAL CHEMISTRY CO2 25 mmol/L 20 - 31 12/16 15:51 :00 [facility] GENERAL CHEMISTRY Potassium 4.3 mmol/L 3.5 - 5.1 12/16 15:51 :00 [facility] GENERAL CHEMISTRY Sodium 136 mmol/L 136 - 145 12/16 15:51 :00 [facility] GENERAL CHEMISTRY Chloride 105 mmol/L 98 - 107 12/16 15:51 :00 [facility] HEMATOLOGY PROFILES Absolute Granulocytes 2.51 x10(9)/L 1.70 - 7.00 12/16 15:51 :00 [facility] HEMATOLOGY PROFILES Abs Lymphocytes 1.37 x10(9)/L 0.90 - 2.90 12/16 15:51 :00 [facility] HEMATOLOGY PROFILES % Eosinophils 1.1 % 12/16 15:51 :00 [facility] HEMATOLOGY PROFILES % Basophils 0.5 % 12/16 15:51 :00 [facility] HEMATOLOGY PROFILES % Immature Granulocytes 0.00 % 0.02 - 0.42 12/16 15:51 :00 [facility] HEMATOLOGY PROFILES % Neutrophils 57.2 % 12/16 15:51 :00 [facility] HEMATOLOGY PROFILES Abs Immature Granulocytes 0.00 x10(9)/L 0.00 - 0.03 12/16 15:51 :00 [facility] HEMATOLOGY PROFILES % Lymphocytes 31.2 % 12/16 15:51 :00 [facility] HEMATOLOGY PROFILES % Monocytes 10.0 % 12/16 15:51 :00 [facility] HEMATOLOGY PROFILES Abs Monocytes 0.44 x10(9)/L 0.30 - 0.90 12/16 15:51 :00 [facility] HEMATOLOGY PROFILES % Nucleated RBCs 0.0 % 12/16 15:51 :00 [facility] HEMATOLOGY PROFILES Abs Eosinophils 0.05 x10(9)/L 0.05 - 0.50 12/16 15:51 :00 [facility] HEMATOLOGY PROFILES Absolute Nucleated RBCs 0.0 x10(9)/L 0.0 - 0.0 12/16 15:51 :00 Interpretive Data: Normal values not established in patients less than 18 years old. [facility] HEMATOLOGY PROFILES Abs Basophils 0.02 x10(9)/L 0.00 - 0.30 12/16 15:51 :00 [facility] HEMATOLOGY PROFILES RBC 4.22 x10(12)/L 4.32 - 5.72 12/16 15:51 :00 [facility] HEMATOLOGY PROFILES RDW SD 42.3 fL 35.1 - 43.9 12/16 15:51 :00 [facility] HEMATOLOGY PROFILES PLT 193 x10(9)/L 150 - 450 12/16 15:51 :00 [facility] HEMATOLOGY PROFILES MPV 9.8 8.0 - 12.0 12/16 15:51 :00 [facility] HEMATOLOGY PROFILES WBC 4.39 x10(9)/L 3.50 - 10.50 12/16 15:51 :00 [facility] HEMATOLOGY PROFILES MCHC 34.2 g/dL 32.0 - 36.0 12/16 15:51 :00 [facility] HEMATOLOGY PROFILES HGB 13.3 g/dL 13.5 - 17.5 12/16 15:51 :00 Interpretive Data: Hyryfu-yu-omm e transgender patients on testosterone therapy should have results assessed using the male reference range. Hjyg-qm-nzbbn e transgender patients on hormone-modul ating therapy clinical judgment is advisedfor assessment. [facility] HEMATOLOGY PROFILES HCT 38.9 % 38.8 - 50.0 12/16 15:51 :00 Interpretive Data: Tcbkrk-tb-bdn e transgender patients on testosterone therapy should have results assessed using the male reference range. Xbkn-ys-ubzve e transgender patients on hormone-modul ating therapy clinical judgment is advisedfor assessment. [facility] HEMATOLOGY PROFILES MCV 92.2 fL 81.2 - 95.1 12/16 15:51 :00 [facility] HEMATOLOGY PROFILES MCH 31.5 pg 26.0 - 33.0 12/16 15:51 :00 [facility] HEMATOLOGY PROFILES RDW CV 12.5 % 11.8 - 15.6 12/16 15:51 :00 [facility] GENERAL CHEMISTRY Anion gap 10 mmol/L 0 - 20 11/03 16:04 :00 [facility] GENERAL CHEMISTRY CO2 26 mmol/L 20 - 31 11/03 16:04 :00 [facility] GENERAL CHEMISTRY Creatinine, standardized 0.8 mg/dL 0.7 - 1.2 11/03 16:04 :00 Interpretive Data: Gvbhsp-kr-efk e transgender patients on testosterone therapy should have results assessed using the male reference range. Bywa-lz-coxoy e transgender patients on hormone-modul ating therapy clinical judgment is advisedfor assessment. [facility] GENERAL CHEMISTRY Glucose Lvl 111 mg/dL 70 - 139 11/03 16:04 :00 [facility] GENERAL CHEMISTRY Calcium 8.9 mg/dL 8.3 - 10.6 11/03 16:04 :00 [facility] GENERAL CHEMISTRY Estimated GFR for Adults 95 mL/min/1.7 3m 11/03 16:04 :00 Interpretive Data: Changed to CKD-EPI 2020 on 2020. [facility] GENERAL CHEMISTRY BUN 20 mg/dL 8 - 23 11/03 16:04 :00 [facility] GENERAL CHEMISTRY Potassium 3.9 mmol/L 3.5 - 5.1 11/03 16:04 :00 [facility] GENERAL CHEMISTRY Sodium 137 mmol/L 136 - 145 11/03 16:04 :00 [facility] GENERAL CHEMISTRY Chloride 104 mmol/L 98 - 107 11/03 16:04 :00 [facility] GENERAL CHEMISTRY Estimated GFR for peds Not Calculated mL/min/1.7 3m 11/03 16:04 :00 Interpretive Data: The estimated GFR was calculated using the B karina Fowler equation (2009) . Reference: Pediatric GFR calculator at [employer] Website. [facility] HEMATOLOGY PROFILES HCT 33.8 % 38.8 - 50.0 11/03 16:04 :00 Interpretive Data: Zcocuz-hg-cmq e transgender patients on testosterone therapy should have results assessed using the male reference range. Gszl-dd-bzivh e transgender patients on hormone-modul ating therapy clinical judgment is advisedfor assessment. [facility] HEMATOLOGY PROFILES RBC 3.66 x10(12)/L 4.32 - 5.72 11/03 16:04 :00 [facility] HEMATOLOGY PROFILES WBC 5.24 x10(9)/L 3.50 - 10.50 11/03 16:04 :00 [facility] HEMATOLOGY PROFILES MPV 9.4 8.0 - 12.0 11/03 16:04 :00 [facility] HEMATOLOGY PROFILES PLT 305 x10(9)/L 150 - 450 11/03 16:04 :00 [facility] HEMATOLOGY PROFILES HGB 11.7 g/dL 13.5 - 17.5 11/03 16:04 :00 Interpretive Data: Mvhnrf-nd-iqx e transgender patients on testosterone therapy should have results assessed using the male reference range. Qcok-ik-ibllu e transgender patients on hormone-modul ating therapy clinical judgment is advisedfor assessment. [facility] HEMATOLOGY PROFILES RDW SD 40.2 fL 35.1 - 43.9 11/03 16:04 :00 [facility] HEMATOLOGY PROFILES RDW CV 11.9 % 11.8 - 15.6 11/03 16:04 :00 [facility] HEMATOLOGY PROFILES MCHC 34.6 g/dL 32.0 - 36.0 11/03 16:04 :00 [facility] HEMATOLOGY PROFILES MCH 32.0 pg 26.0 - 33.0 11/03 16:04 :00 [facility] HEMATOLOGY PROFILES MCV 92.3 fL 81.2 - 95.1 11/03 16:04 :00 [facility] HEMATOLOGY PROFILES Abs Monocytes 0.51 x10(9)/L 0.30 - 0.90 11/03 16:04 :00 [facility] HEMATOLOGY PROFILES % Monocytes 9.7 % 11/03 16:04 :00 [facility] HEMATOLOGY PROFILES % Lymphocytes 22.7 % 11/03 16:04 :00 [facility] HEMATOLOGY PROFILES Abs Immature Granulocytes 0.02 x10(9)/L 0.00 - 0.03 11/03 16:04 :00 [facility] HEMATOLOGY PROFILES % Neutrophils 62.4 % 11/03 16:04 :00 [facility] HEMATOLOGY PROFILES Abs Basophils 0.05 x10(9)/L 0.00 - 0.30 11/03 16:04 :00 [facility] HEMATOLOGY PROFILES Absolute Nucleated RBCs 0.0 x10(9)/L 0.0 - 0.0 11/03 16:04 :00 Interpretive Data: Normal values not established in patients less than 18 years old. [facility] HEMATOLOGY PROFILES Abs Eosinophils 0.20 x10(9)/L 0.05 - 0.50 11/03 16:04 :00 [facility] HEMATOLOGY PROFILES % Nucleated RBCs 0.0 % 11/03 16:04 :00 [facility] HEMATOLOGY PROFILES % Eosinophils 3.8 % 11/03 16:04 :00 [facility] HEMATOLOGY PROFILES Abs Lymphocytes 1.19 x10(9)/L 0.90 - 2.90 11/03 16:04 :00 [facility] HEMATOLOGY PROFILES Absolute Granulocytes 3.27 x10(9)/L 1.70 - 7.00 11/03 16:04 :00 [facility] HEMATOLOGY PROFILES % Immature Granulocytes 0.40 % 0.02 - 0.42 11/03 16:04 :00 [facility] HEMATOLOGY PROFILES % Basophils 1.0 % 11/03 16:04 :00 [facility] GENERAL CHEMISTRY Mg++ 0.49 mmol/L 0.43 - 0.61 10/18 11:45 :00 [facility] GENERAL CHEMISTRY Ca++ 1.14 mmol/L 1.12 - 1.30 10/18 11:45 :00 [facility] GENERAL CHEMISTRY Estimated GFR for Adults 98 mL/min/1.7 3m 10/18 11:45 :00 Interpretive Data: Changed to CKD-EPI 2020 on 2020. [facility] GENERAL CHEMISTRY Creatinine, standardized 0.8 mg/dL 0.7 - 1.2 10/18 11:45 :00 Interpretive Data: Mjoant-ja-ztb e transgender patients on testosterone therapy should have results assessed using the male reference range. Yjbn-qb-rcaha e transgender patients on hormone-modul ating therapy clinical judgment is advisedfor assessment. [facility] GENERAL CHEMISTRY Anion gap 11 mmol/L 0 - 20 10/18 11:45 :00 [facility] GENERAL CHEMISTRY CO2 30 mmol/L 20 - 31 10/18 11:45 :00 [facility] GENERAL CHEMISTRY Potassium 3.4 mmol/L 3.5 - 5.1 10/18 11:45 :00 [facility] GENERAL CHEMISTRY Sodium 137 mmol/L 136 - 145 10/18 11:45 :00 [facility] GENERAL CHEMISTRY Calcium 8.9 mg/dL 8.3 - 10.6 10/18 11:45 :00 [facility] GENERAL CHEMISTRY Chloride 99 mmol/L 98 - 107 10/18 11:45 :00 [facility] GENERAL CHEMISTRY Glucose Lvl 96 mg/dL 70 - 139 10/18 11:45 :00 [facility] GENERAL CHEMISTRY BUN 10 mg/dL 8 - 23 10/18 11:45 :00 [facility] GENERAL CHEMISTRY Estimated GFR for peds Not Calculated mL/min/1.7 3m 10/18 11:45 :00 Interpretive Data: The estimated GFR was calculated using the B edside Fowler equation (2009) . Reference: Pediatric GFR calculator at [employer] Website. [facility] GENERAL CHEMISTRY Phosphorus 3.6 mg/dL 2.4 - 5.1 10/18 11:45 :00 [facility] HEMATOLOGY PROFILES Abs Lymphocytes 0.85 x10(9)/L 0.90 - 2.90 10/18 11:45 :00 [facility] HEMATOLOGY PROFILES Absolute Granulocytes 4.97 x10(9)/L 1.70 - 7.00 10/18 11:45 :00 [facility] HEMATOLOGY PROFILES % Monocytes 8.6 % 10/18 11:45 :00 [facility] HEMATOLOGY PROFILES % Eosinophils 1.5 % 10/18 11:45 :00 [facility] HEMATOLOGY PROFILES % Basophils 0.3 % 10/18 11:45 :00 [facility] HEMATOLOGY PROFILES % Immature Granulocytes 0.20 % 0.02 - 0.42 10/18 11:45 :00 [facility] HEMATOLOGY PROFILES % Lymphocytes 13.1 % 10/18 11:45 :00 [facility] HEMATOLOGY PROFILES % Nucleated RBCs 0.0 % 10/18 11:45 :00 [facility] HEMATOLOGY PROFILES Absolute Nucleated RBCs 0.0 x10(9)/L 0.0 - 0.0 10/18 11:45 :00 Interpretive Data: Normal values not established in patients less than 18 years old. [facility] HEMATOLOGY PROFILES % Neutrophils 76.3 % 10/18 11:45 :00 [facility] HEMATOLOGY PROFILES Abs Monocytes 0.56 x10(9)/L 0.30 - 0.90 10/18 11:45 :00 [facility] HEMATOLOGY PROFILES Abs Eosinophils 0.10 x10(9)/L 0.05 - 0.50 10/18 11:45 :00 [facility] HEMATOLOGY PROFILES Abs Basophils 0.02 x10(9)/L 0.00 - 0.30 10/18 11:45 :00 [facility] HEMATOLOGY PROFILES Abs Immature Granulocytes 0.01 x10(9)/L 0.00 - 0.03 10/18 11:45 :00 [facility] HEMATOLOGY PROFILES PLT 203 x10(9)/L 150 - 450 10/18 11:45 :00 [facility] HEMATOLOGY PROFILES MPV 10.1 8.0 - 12.0 10/18 11:45 :00 [facility] HEMATOLOGY PROFILES MCHC 35.9 g/dL 32.0 - 36.0 10/18 11:45 :00 [facility] HEMATOLOGY PROFILES RDW CV 11.4 % 11.8 - 15.6 10/18 11:45 :00 [facility] HEMATOLOGY PROFILES RDW SD 38.7 fL 35.1 - 43.9 10/18 11:45 :00 [facility] HEMATOLOGY PROFILES MCV 92.2 fL 81.2 - 95.1 10/18 11:45 :00 [facility] HEMATOLOGY PROFILES MCH 33.1 pg 26.0 - 33.0 10/18 11:45 :00 [facility] HEMATOLOGY PROFILES WBC 6.51 x10(9)/L 3.50 - 10.50 10/18 11:45 :00 [facility] HEMATOLOGY PROFILES RBC 3.35 x10(12)/L 4.32 - 5.72 10/18 11:45 :00 [facility] HEMATOLOGY PROFILES HGB 11.1 g/dL 13.5 - 17.5 10/18 11:45 :00 Interpretive Data: Lfmtlc-qh-mng e transgender patients on testosterone therapy should have results assessed using the male reference range. Hdzm-gg-lgimi e transgender patients on hormone-modul ating therapy clinical judgment is advisedfor assessment. [facility] HEMATOLOGY PROFILES HCT 30.9 % 38.8 - 50.0 10/18 11:45 :00 Interpretive Data: Uuwewh-cu-oeh e transgender patients on testosterone therapy should have results assessed using the male reference range. Tuae-wr-tynph e transgender patients on hormone-modul ating therapy clinical judgment is advisedfor assessment. [facility] GENERAL CHEMISTRY Estimated GFR for Adults 100 mL/min/1.7 3m 10/17 10:00 :00 Interpretive Data: Changed to CKD-EPI 2020 on 2020. [facility] GENERAL CHEMISTRY Estimated GFR for peds Not Calculated mL/min/1.7 3m 10/17 10:00 :00 Interpretive Data: The estimated GFR was calculated using the Vanessa collins Fowler equation (2009) . Reference: Pediatric GFR calculator at [employer] Website. [facility] GENERAL CHEMISTRY BUN 9 mg/dL 8 - 23 10/17 10:00 :00 [facility] GENERAL CHEMISTRY Calcium 8.6 mg/dL 8.3 - 10.6 10/17 10:00 :00 [facility] GENERAL CHEMISTRY Glucose Lvl 93 mg/dL 70 - 139 10/17 10:00 :00 [facility] GENERAL CHEMISTRY Chloride 104 mmol/L 98 - 107 10/17 10:00 :00 [facility] GENERAL CHEMISTRY Sodium 140 mmol/L 136 - 145 10/17 10:00 :00 [facility] GENERAL CHEMISTRY Potassium 3.7 mmol/L 3.5 - 5.1 10/17 10:00 :00 [facility] GENERAL CHEMISTRY CO2 29 mmol/L 20 - 31 10/17 10:00 :00 [facility] GENERAL CHEMISTRY Anion gap 11 mmol/L 0 - 20 10/17 10:00 :00 [facility] GENERAL CHEMISTRY Creatinine, standardized 0.7 mg/dL 0.7 - 1.2 10/17 10:00 :00 Interpretive Data: Jsavpt-lc-rpv e transgender patients on testosterone therapy should have results assessed using the male reference range. Aftu-ov-qqbzn e transgender patients on hormone-modul ating therapy clinical judgment is advisedfor assessment. [facility] GENERAL CHEMISTRY Phosphorus 2.8 mg/dL 2.4 - 5.1 10/17 10:00 :00 [facility] GENERAL CHEMISTRY Ca++ 1.14 mmol/L 1.12 - 1.30 10/17 10:00 :00 [facility] GENERAL CHEMISTRY Mg++ 0.51 mmol/L 0.43 - 0.61 10/17 10:00 :00 [facility] HEMATOLOGY PROFILES WBC 5.13 x10(9)/L 3.50 - 10.50 10/17 10:00 :00 [facility] HEMATOLOGY PROFILES HCT 29.7 % 38.8 - 50.0 10/17 10:00 :00 Interpretive Data: Qtihmb-ok-ecv e transgender patients on testosterone therapy should have results assessed using the male reference range. Gmci-ba-jyppx e transgender patients on hormone-modul ating therapy clinical judgment is advisedfor assessment. [facility] HEMATOLOGY PROFILES MCV 94.0 fL 81.2 - 95.1 10/17 10:00 :00 [facility] HEMATOLOGY PROFILES RBC 3.16 x10(12)/L 4.32 - 5.72 10/17 10:00 :00 [facility] HEMATOLOGY PROFILES HGB 10.3 g/dL 13.5 - 17.5 10/17 10:00 :00 Interpretive Data: Byipfh-lr-wsz e transgender patients on testosterone therapy should have results assessed using the male reference range. Zkin-er-ctgsu e transgender patients on hormone-modul ating therapy clinical judgment is advisedfor assessment. [facility] HEMATOLOGY PROFILES MCH 32.6 pg 26.0 - 33.0 10/17 10:00 :00 [facility] HEMATOLOGY PROFILES MCHC 34.7 g/dL 32.0 - 36.0 10/17 10:00 :00 [facility] HEMATOLOGY PROFILES MPV 9.9 8.0 - 12.0 10/17 10:00 :00 [facility] HEMATOLOGY PROFILES RDW CV 11.5 % 11.8 - 15.6 10/17 10:00 :00 [facility] HEMATOLOGY PROFILES RDW SD 39.8 fL 35.1 - 43.9 10/17 10:00 :00 [facility] HEMATOLOGY PROFILES PLT 169 x10(9)/L 150 - 450 10/17 10:00 :00 [facility] HEMATOLOGY PROFILES Abs Lymphocytes 1.19 x10(9)/L 0.90 - 2.90 10/17 10:00 :00 [facility] HEMATOLOGY PROFILES Abs Monocytes 0.42 x10(9)/L 0.30 - 0.90 10/17 10:00 :00 [facility] HEMATOLOGY PROFILES Abs Immature Granulocytes 0.02 x10(9)/L 0.00 - 0.03 10/17 10:00 :00 [facility] HEMATOLOGY PROFILES Abs Eosinophils 0.13 x10(9)/L 0.05 - 0.50 10/17 10:00 :00 [facility] HEMATOLOGY PROFILES Abs Basophils 0.01 x10(9)/L 0.00 - 0.30 10/17 10:00 :00 [facility] HEMATOLOGY PROFILES % Monocytes 8.2 % 10/17 10:00 :00 [facility] HEMATOLOGY PROFILES % Immature Granulocytes 0.40 % 0.02 - 0.42 10/17 10:00 :00 [facility] HEMATOLOGY PROFILES Absolute Granulocytes 3.36 x10(9)/L 1.70 - 7.00 10/17 10:00 :00 [facility] HEMATOLOGY PROFILES % Eosinophils 2.5 % 10/17 10:00 :00 [facility] HEMATOLOGY PROFILES % Basophils 0.2 % 10/17 10:00 :00 [facility] HEMATOLOGY PROFILES % Neutrophils 65.5 % 10/17 10:00 :00 [facility] HEMATOLOGY PROFILES % Lymphocytes 23.2 % 10/17 10:00 :00 [facility] HEMATOLOGY PROFILES % Nucleated RBCs 0.0 % 10/17 10:00 :00 [facility] HEMATOLOGY PROFILES Absolute Nucleated RBCs 0.0 x10(9)/L 0.0 - 0.0 10/17 10:00 :00 Interpretive Data: Normal values not established in patients less than 18 years old. [facility] BODY FLUIDS/CSF Fluid, Creatinine 0.60 mg/dL 10/16 19:46 :00 Interpretive Data: This test is not FDA approved for body fluids other than blood (or urine or CSF). The reference interval and other method performance specification s are unavailable for this fluid. Comparison of the results with the concentration in blood , serum or plasma is recommended. [facility] GENERAL CHEMISTRY CO2 26 mmol/L 20 - 31 10/16 15:54 :00 [facility] GENERAL CHEMISTRY Potassium 3.7 mmol/L 3.5 - 5.1 10/16 15:54 :00 [facility] GENERAL CHEMISTRY Sodium 138 mmol/L 136 - 145 10/16 15:54 :00 [facility] GENERAL CHEMISTRY Creatinine, standardized 0.5 mg/dL 0.7 - 1.2 10/16 15:54 :00 Interpretive Data: Dzaxds-xk-jar e transgender patients on testosterone therapy should have results assessed using the male reference range. Bqky-yg-vjzoy e transgender patients on hormone-modul ating therapy clinical judgment is advisedfor assessment. [facility] GENERAL CHEMISTRY Anion gap 13 mmol/L 0 - 20 10/16 15:54 :00 [facility] GENERAL CHEMISTRY Estimated GFR for Adults 109 mL/min/1.7 3m 10/16 15:54 :00 Interpretive Data: Changed to CKD-EPI 2020 on 2020. [facility] GENERAL CHEMISTRY Calcium 8.8 mg/dL 8.3 - 10.6 10/16 15:54 :00 [facility] GENERAL CHEMISTRY BUN 7 mg/dL 8 - 23 10/16 15:54 :00 [facility] GENERAL CHEMISTRY Chloride 103 mmol/L 98 - 107 10/16 15:54 :00 [facility] GENERAL CHEMISTRY Glucose Lvl 95 mg/dL 70 - 139 10/16 15:54 :00 [facility] GENERAL CHEMISTRY Estimated GFR for peds Not Calculated mL/min/1.7 3m 10/16 15:54 :00 Interpretive Data: The estimated GFR was calculated using the B edselie Fowler equation (2009) . Reference: Pediatric GFR calculator at [employer] Website. [facility] GENERAL CHEMISTRY Phosphorus 2.1 mg/dL 2.4 - 5.1 10/16 15:54 :00 [facility] HEMATOLOGY PROFILES Abs Basophils 0.01 x10(9)/L 0.00 - 0.30 10/16 15:54 :00 [facility] [facility] HEMATOLOGY PROFILES Abs Immature Granulocytes 0.02 x10(9)/L 0.00 - 0.03 10/16 15:54 :00 [facility] HEMATOLOGY PROFILES Abs Monocytes 0.46 x10(9)/L 0.30 - 0.90 10/16 15:54 :00 [facility] HEMATOLOGY PROFILES Abs Eosinophils 0.05 x10(9)/L 0.05 - 0.50 10/16 15:54 :00 [facility] HEMATOLOGY PROFILES % Immature Granulocytes 0.30 % 0.02 - 0.42 10/16 15:54 :00 [facility] HEMATOLOGY PROFILES Absolute Granulocytes 4.08 x10(9)/L 1.70 - 7.00 10/16 15:54 :00 [facility] HEMATOLOGY PROFILES Abs Lymphocytes 1.23 x10(9)/L 0.90 - 2.90 10/16 15:54 :00 [facility] HEMATOLOGY PROFILES % Eosinophils 0.9 % 10/16 15:54 :00 [facility] HEMATOLOGY PROFILES % Basophils 0.2 % 10/16 15:54 :00 [facility] HEMATOLOGY PROFILES Absolute Nucleated RBCs 0.0 x10(9)/L 0.0 - 0.0 10/16 15:54 :00 Interpretive Data: Normal values not established in patients less than 18 years old. [facility] HEMATOLOGY PROFILES % Neutrophils 69.7 % 10/16 15:54 :00 [facility] HEMATOLOGY PROFILES % Lymphocytes 21.0 % 10/16 15:54 : [facility] HEMATOLOGY PROFILES % Monocytes 7.9 % 10/16 15:54 :00 [facility] HEMATOLOGY PROFILES % Nucleated RBCs 0.0 % 10/16 15:54 :00 [facility] HEMATOLOGY PROFILES HCT 32.4 % 38.8 - 50.0 10/16 15:54 :00 Interpretive Data: Ruwjlh-dk-dub e transgender patients on testosterone therapy should have results assessed using the male reference range. Nnrh-kj-xcrlg e transgender patients on hormone-modul ating therapy clinical judgment is advisedfor assessment. [facility] HEMATOLOGY PROFILES MCV 93.1 fL 81.2 - 95.1 10/16 15:54 :00 [facility] HEMATOLOGY PROFILES WBC 5.85 x10(9)/L 3.50 - 10.50 10/16 15:54 :00 [facility] HEMATOLOGY PROFILES RBC 3.48 x10(12)/L 4.32 - 5.72 10/16 15:54 :00 [facility] HEMATOLOGY PROFILES HGB 11.4 g/dL 13.5 - 17.5 10/16 15:54 :00 Interpretive Data: Rpdicr-jy-wbc e transgender patients on testosterone therapy should have results assessed using the male reference range. Qyxu-kv-koxpe e transgender patients on hormone-modul ating therapy clinical judgment is advisedfor assessment. [facility] HEMATOLOGY PROFILES PLT 140 x10(9)/L 150 - 450 10/16 15:54 :00 Result Comment: Clot check completed [facility] HEMATOLOGY PROFILES MPV 10.1 8.0 - 12.0 10/16 15:54 :00 [facility] HEMATOLOGY PROFILES RDW SD 39.1 fL 35.1 - 43.9 10/16 15:54 :00 [facility] HEMATOLOGY PROFILES MCH 32.8 pg 26.0 - 33.0 10/16 15:54 :00 [facility] HEMATOLOGY PROFILES MCHC 35.2 g/dL 32.0 - 36.0 10/16 15:54 :00 [facility] HEMATOLOGY PROFILES RDW CV 11.5 % 11.8 - 15.6 10/16 15:54 :00 [facility] GENERAL CHEMISTRY Mg++ 0.47 mmol/L 0.43 - 0.61 10/16 10:00 :00 [facility] GENERAL CHEMISTRY Ca++ 1.13 mmol/L 1.12 - 1.30 10/16 10:00 :00 [facility] HEMATOLOGY PROFILES HGB 10.3 g/dL 13.5 - 17.5 10/15 15:13 :00 Interpretive Data: Ghjhpy-sf-cef e transgender patients on testosterone therapy should have results assessed using the male reference range. Nmhq-cx-bbwxi e transgender patients on hormone-modul ating therapy clinical judgment is advisedfor assessment. [facility] HEMATOLOGY PROFILES HCT 29.6 % 38.8 - 50.0 10/15 15:13 :00 Interpretive Data: Vpwqjc-az-cbp e transgender patients on testosterone therapy should have results assessed using the male reference range. Ssys-xr-tzpch e transgender patients on hormone-modul ating therapy clinical judgment is advisedfor assessment. [facility] GENERAL CHEMISTRY Creatinine, standardized 0.6 mg/dL 0.7 - 1.2 10/15 07:26 :00 Interpretive Data: Asdvnt-ob-ylr e transgender patients on testosterone therapy should have results assessed using the male reference range. Rook-dg-wllam e transgender patients on hormone-modul ating therapy clinical judgment is advisedfor assessment. [facility] GENERAL CHEMISTRY CO2 26 mmol/L 20 - 31 10/15 07:26 :00 [facility] GENERAL CHEMISTRY Anion gap 8 mmol/L 0 - 20 10/15 07:26 :00 [facility] GENERAL CHEMISTRY Sodium 137 mmol/L 136 - 145 10/15 07:26 :00 [facility] GENERAL CHEMISTRY Potassium 4.0 mmol/L 3.5 - 5.1 10/15 07:26 :00 [facility] GENERAL CHEMISTRY Glucose Lvl 115 mg/dL 70 - 139 10/15 07:26 :00 [facility] GENERAL CHEMISTRY Chloride 107 mmol/L 98 - 107 10/15 07:26 :00 [facility] CHEMISTRY BUN 14 mg/dL 8 - 23 10/15 07:26 :00 [facility] GENERAL CHEMISTRY Calcium 8.7 mg/dL 8.3 - 10.6 10/15 07:26 :00 [facility] CHEMISTRY Estimated GFR for peds Not Calculated mL/min/1.7 3m 10/15 07:26 :00 Interpretive Data: The estimated GFR was calculated using the Vanessa collins Fowler equation (2009) . Reference: Pediatric GFR calculator at [employer] Website. [facility] CHEMISTRY Estimated GFR for Adults 103 mL/min/1.7 3m 10/15 07:26 :00 Interpretive Data: Changed to CKD-EPI 2020 on 2020. [facility] GENERAL CHEMISTRY Phosphorus 2.9 mg/dL 2.4 - 5.1 10/15 07:26 :00 [facility] CHEMISTRY Mg++ 0.49 mmol/L 0.43 - 0.61 10/15 07:26 :00 [facility] GENERAL CHEMISTRY Ca++ 1.15 mmol/L 1.12 - 1.30 10/15 07:26 :00 [facility] HEMATOLOGY PROFILES WBC 7.88 x10(9)/L 3.50 - 10.50 10/15 07:26 :00 [facility] HEMATOLOGY PROFILES RBC 3.22 x10(12)/L 4.32 - 5.72 10/15 07:26 :00 [facility] HEMATOLOGY PROFILES MPV 10.0 8.0 - 12.0 10/15 07:26 :00 [facility] HEMATOLOGY PROFILES PLT 156 x10(9)/L 150 - 450 10/15 07:26 :00 [facility] HEMATOLOGY PROFILES MCV 95.0 fL 81.2 - 95.1 10/15 07:26 :00 [facility] HEMATOLOGY PROFILES MCH 33.2 pg 26.0 - 33.0 10/15 07:26 :00 [facility] HEMATOLOGY PROFILES MCHC 35.0 g/dL 32.0 - 36.0 10/15 07:26 : [facility] HEMATOLOGY PROFILES RDW SD 40.7 fL 35.1 - 43.9 10/15 07:26 :00 [facility] HEMATOLOGY PROFILES RDW CV 11.7 % 11.8 - 15.6 10/15 07:26 :00 [facility] HEMATOLOGY PROFILES Abs Immature Granulocytes 0.04 x10(9)/L 0.00 - 0.03 10/15 07:26 :00 [facility] HEMATOLOGY PROFILES % Eosinophils 0.3 % 10/15 07:26 : [facility] HEMATOLOGY PROFILES % Immature Granulocytes 0.50 % 0.02 - 0.42 10/15 07:26 : [facility] HEMATOLOGY PROFILES % Basophils 0.1 % 10/15 07:26 : [facility] HEMATOLOGY PROFILES % Neutrophils 80.0 % 10/15 07:26 :00 [facility] HEMATOLOGY PROFILES % Lymphocytes 9.6 % 10/15 07:26 :00 [facility] HEMATOLOGY PROFILES % Monocytes 9.5 % 10/15 07:26 :00 [facility] HEMATOLOGY PROFILES Absolute Nucleated RBCs 0.0 x10(9)/L 0.0 - 0.0 10/15 07:26 :00 Interpretive Data: Normal values not established in patients less than 18 years old. [facility] HEMATOLOGY PROFILES Abs Monocytes 0.75 x10(9)/L 0.30 - 0.90 10/15 07:26 :00 [facility] HEMATOLOGY PROFILES Abs Basophils 0.01 x10(9)/L 0.00 - 0.30 10/15 07:26 :00 [facility] HEMATOLOGY PROFILES Abs Eosinophils 0.02 x10(9)/L 0.05 - 0.50 10/15 07:26 :00 [facility] HEMATOLOGY PROFILES Absolute Granulocytes 6.30 x10(9)/L 1.70 - 7.00 10/15 07:26 :00 [facility] HEMATOLOGY PROFILES Abs Lymphocytes 0.76 x10(9)/L 0.90 - 2.90 10/15 07:26 :00 [facility] HEMATOLOGY PROFILES % Nucleated RBCs 0.0 % 10/15 07:26 :00 [facility] GENERAL CHEMISTRY Magnesium 1.96 mg/dL 1.60 - 2.60 10/14 06:44 :00 [facility] HEMATOLOGY PROFILES Morphology Present *NA* (10/13/24 6:58 PM) 10/14 00:58 :00 [facility] HEMATOLOGY PROFILES Platelet Estimate Adequate *NA* (10/13/24 6:58 PM) 10/14 00:58 :00 [facility] HEMATOLOGY PROFILES Ynes Cells 2+ (25-50%) *NA* (10/13/24 6:58 PM) 10/14 00:58 :00 [facility] Surgical Report Surgical Report SURGICAL PATHOLOGY REPORT Patient Name: EVA PUENTE Specimen Number: [id number] Patient Collection Date: 10/13/2024 Submitting Physician: Rg Marin M.D. Signout Date: 10/15/2024 Specimen(s ) Received 1: PELVIC LYMPH NODES 2: RADICAL CYSTECTOMY 3: RIGHT DISTAL URETER 4: LEFT DISTAL URETER ======== FINAL DIAGNOSIS: 1. LYMPH NODES, PELVIC, DISSECTION : THREE LYMPH NODES, NEGATIVE FOR MALIGNANCY (0/3) 2. URINARY BLADDER AND PROSTATE, RADICAL CYSTOPROST ATECTOMY: URINARY BLADDER: UROTHELIAL CARCINOMA IN SITU, MARGINS NEGATIVE NO EVIDENCE OF RESIDUAL INVASIVE UROTHELIAL CARCINOMA IDENTIFIED CHANGES CONSISTENT WITH TREATMENT EFFECTS PRESENT PLEASE SEE CAP SYNOPTIC REPORT FOR ADDITIONAL INFORMATIO N PROSTATE: ACINAR ADENOCARCI NOMA GRADE GROUP 1 (MOI SCORE 3+3 = 6) INVOLVING LESS THAN 1% OF PROSTATE LIMITED TO PROSTATE MARGINS NEGATIVE PLEASE SEE CAP SYNOPTIC REPORT FOR ADDITIONAL INFORMATIO N 3. URETER, RIGHT DISTAL, EXCISION: BENIGN URETER NEGATIVE FOR MALIGNANCY 4. URETER, LEFT DISTAL, EXCISION: BENIGN URETER NEGATIVE FOR MALIGNANCY By this signature, I attest that the above diagnosis is based upon my personal examinatio n of the tissue and slides (and/or other material indicated in the diagnosis) , per policy. A resident was involved in the pathologic evaluation of this case, I have reviewed and edited the findings of the resident. Paxton Crockett M.D. Electronic ally Signed Out ======== History NONE GIVEN Gross Descriptio n Specimen #1 in formalin labeled 'pelvic lymph nodes' are 2 pieces of de paz-yellow lobular adipose tissue, together 6 x 4 x 1 cm. A search for lymph node reveal 3 lymph nodes, ranging in size from 5 x 1.8 x 0.7 to 1.7 x 0.8 x 0.3 cm. Specimen submitted as follows: 1A1 lymph node, trisected 1B-1F-1 lymph node, serially sectioned 1G-1J-1 lymph node, serially sectioned 1Kpossible lymph node Specimen #2 in formalin labeled radical cystectomy is a cystoprost atectomy. The bladder is 11.5 x 9.5 x 3.5 cm with attached 0.8 cm long x 0.6 cm diameter right ureter and 0.5 cm long x 0.4 cm diameter left ureter. The bladder is covered partially by an intact, smooth peritoneal reflection . The remaining outer surface of the bladder is de paz-yellow lobular adipose tissue. The prostate gland is 4 x 4 x 2.8 cm, with attached 2.5 x 1.3 x 0.5 cm right seminal vesicle, 2.5 x 1.1 x 0.5 cm left seminal vesicle, 5.5 cm long x 0.4 cm diameter right vas deferens, and 6 cm long x 0.4 cm diameter right vas deferens. The right ureter, left ureter, and prostatic urethra are probe patent to the bladder lumen. The outer surface of the specimen is inked as follows: right prostate black, left prostate blue, posterior prostate orange, and bladder below the peritoneal reflect black. The bladder is opened anteriorly with a Y shaped incision to reveal a 2.5 x 2.5 cm de paz elizabeth-white indurated area involving the right lateral and posterior bladder wall. It is 2.6 cm away from the right ureteral orifice, 4 cm away from the left ureteral orifice, and 6.2 cm away from the uretheral margin. There is a 0.6 x 0.5 cm diverticul um in the left lateral wall. It is 4.3 cm away from the indurated area, 3.2 cm away from the left ureter, 5.2 cm away from the right ureter 6.6 cm away from the ureteral margin. Serial sectioning reveals the diverticul um to be 3.3 cm in greatest dimension in the left lateral wall. The bladder wall thickness is 1.1 cm. Grossly no obvious mass is identified . The remainder of the bladder mucosa is de paz-pink, smooth. The prostate is serially sectioned to reveal nodular de paz yellow-whi te cut surfaces. Gross photograph s are taken. Samples are submitted as follows: 2Aright ureteral margin, en face 2Bleft ureteral margin, en face 2Curethral margin, en face 2Dright ureteral orifice, nearest indurated area 2Eleft ureteral orifice, nearest to indurated area and diverticul um 6G5Rxiwjuu n from indurated area 7V1Qojuiqa n from diverticul um 2Msection from anterior bladder wall 2Nsection from bladder dome 2Osection from left lateral wall 2Psection from right lateral wall 2Qsection from trigone 2Rsection from posterior bladder wall 8P7Culhps inferior one third of prostate 1X9Nchkol middle one third of prostate 5Z2Lrjmxf superior one third of prostate 2Yright prostate with right seminal vesicle 6F8JUiwzx inferior one third of prostate 7NX7VUbfvg middle one third of prostate 1GS2OEkpbv superior one third of prostate 2 AFleft prostate with left seminal cycle Specimen #3 in formalin labeled 'right distal ureter' is a 2 x 2.2 x 0.3 cm yellow tissue. The specimen is closed at 1 end with plastic clip and suture,, serially section to reveals a 2 cm long by 0.3 cm in diameter ureter. Specimen submitted entirely as 3A3B. Specimen #4 in formalin labeled 'left distal ureter' is 1.7 x 1.3 x 0.3 cm de paz-yellow lobular adipose tissue piece. Specimen is closed at 1 end by plastic clip and black suture, and serially section to reveal a 1.4 cm long by is 4A4B. [FK] FK Microscopi c Descriptio n SPECIMEN Procedure: Radical cystoprost atectomy TUMOR Tumor Site: diffuse Histologic Type: Urothelial carcinoma in situ Histologic Grade: Not applicable Tumor Size: Cannot be determined : diffuse carcinoma in situ Tumor Extent: Urothelial carcinoma in situ Lymphatic and / or Vascular Invasion: Not identified MARGINS Margin Status for Invasive Tumor: All margins negative for invasive tumor Margin Status for Carcinoma in Situ / Noninvasiv e Papillary Urothelial Carcinoma: All margins negative for carcinoma in situ / noninvasiv e papillary urothelial carcinoma REGIONAL LYMPH NODES Regional Lymph Node Status: All regional lymph nodes negative for tumor Number of Lymph Nodes Examined: 3 pTNM CLASSIFICA TION (AJCC 8th Edition) Modified Classifica tion: y (post-neoa djuvant therapy) pT Category: pTis: Urothelial carcinoma *in situ*: flat tumor pN Category: pN0: No lymph node metastasis Procedure: Radical prostatect ameya TUMOR Histologic Type: Acinar adenocarci noma, convention al (usual) Histologic Grade Grade: Grade group 1 (Clinton Score 3 + 3 = 6) Intraducta l Carcinoma (IDC): Not identified Treatment Effect: Not identified TUMOR QUANTITATI ON Estimated Percentage of Prostate Involved by Tumor: Less than 1% Extraprost atic Extension (EPE): Not identified Urinary Bladder Neck Invasion: Not identified Seminal Vesicle Invasion: Not identified Lymphatic and / or Vascular Invasion: Not Identified MARGINS Margin Status: All margins negative for invasive carcinoma REGIONAL LYMPH NODES Regional Lymph Node Status: All regional lymph nodes negative for tumor Number of Lymph Nodes Examined: 3 pTNM CLASSIFICA TION (AJCC 8th Edition) pT Category: pT2: Organ confined pN Category: pN0: No positive regional nodes The performanc e characteri stics of the immunohist ochemical stains cited in this report (if any) were determined by the [facility] Department of Pathology. They have not been cleared or approved by the U.S. Food and Drug Administra tion. The FDA has determined that such clearance or approval is not necessary. This test is for clinical purposes. It should not be regarded as investigat ional or for research. This laboratory is certified under the Clinical Laboratory Improvemen t Amendments of 1988 (CLIA) as qualified to perform high complexity clinical laboratory testing. Unless gross-only is specified in the diagnosis, the final diagnosis for each specimen is based on a microscopi c examinatio n of histologic sections of the tissue from each specimen. 10/13 13:31 :00 Missing Attachment [id number].PDF can be viewed in source system [facility] COAGULATIO N PT 11.5 s 9.4 - 12.5 10/01 15:09 :00 [facility] COAGULATIO N INR 1.0 0.9 - 1.2 10/01 15:09 :00 Interpretive Data: Suggested therapeutic INR range for stable oral anticoagulati on: Optimal Therapeutic INR Range 2.0-3.0 Therapeutic Range for High-Risk Groups (antiphoshpol ipid syndrome with previous thrombosis) 2.0-3.0 DVT of the leg 2.0-3.0 PE 2.0-3.0 Patients with AF and Stable Coronary Artery Disease 2.0-3.0 Bioprosthetic valve in the mitral position 2.0-3.0 Mechanical mitral valve or additional risk factors 2.5-3.5 Prevention of Recurrent VTE in Women prophylaxis for 6 weeks with prophylactic- or intermediate- dose LMWH or warfarin targeted at INR 2.0 or 3.0 rather than no prophylaxis For additional guidance see: Ernestine GH, Madison EA, Michele M, Gabriela DD, Gilmer n rashel HJ; [employer] Antithromboti c Therapy and Prevention of Thrombosis Panel. Executive summary: Antithromboti c Therapy and Prevention of Thrombosis, 9th Ed: [employer] Evidence-Base d Clinical Practice Guidelines. Chest. 2012 Dec; 141(2 Suppl):7S-47S . doi: 10.1378/chest .1412S3 [facility] COAGULATIO N PTT 29.7 s 25.1 - 36.5 10/01 15:09 :00 Interpretive Data: Recommendatio ns for anticoagulant therapeutic ranges: Unfractionate d Heparin: Please order the anti-Xa assay. Target ranges and medication management recommendatio ns are based on the anti-Xa assay and posted in [employer] (see Medication Management-Ad ult Heparin Nomogram). Argatroban: Target ranges and medication management recommendatio ns are posted in [employer] (see Medication Management- Adult Argatroban Nomogram). Low molecular weight heparin or danaparoid monitoring: Please order the anti-Xa assay. Please contact the Pharmacy or the Clinical Pathology Service for additional questions. [facility] GENERAL CHEMISTRY Anion gap 14 mmol/L 0 - 20 10/01 15:09 :00 [facility] GENERAL CHEMISTRY Calcium 9.7 mg/dL 8.3 - 10.6 10/01 15:09 :00 [facility] GENERAL CHEMISTRY AST-SGOT 23 U/L 10/01 15:09 :00 [facility] GENERAL CHEMISTRY Glucose Lvl 101 mg/dL 70 - 139 10/01 15:09 :00 [facility] GENERAL CHEMISTRY T Bili 0.93 mg/dL 0.30 - 1.20 10/01 15:09 :00 [facility] GENERAL CHEMISTRY Total Protein 7.1 g/dL 5.7 - 8.2 10/01 15:09 :00 [facility] GENERAL CHEMISTRY Estimated GFR for peds Not calculated 10/01 15:09 :00 Interpretive Data: The estimated GFR was calculated using the B karina Fowler equation (2009) . Reference: Pediatric GFR calculator at [employer] Website. [facility] GENERAL CHEMISTRY Chloride 105 mmol/L 98 - 107 10/01 15:09 :00 [facility] GENERAL CHEMISTRY Estimated GFR for Adults 94 mL/min/1.7 3m 10/01 15:09 :00 Interpretive Data: Changed to CKD-EPI 2020 on 2020. [facility] GENERAL CHEMISTRY Albumin 4.0 g/dL 3.4 - 5.0 10/01 15:09 :00 [facility] GENERAL CHEMISTRY Creatinine, standardized 0.9 mg/dL 0.7 - 1.2 10/01 15:09 :00 Interpretive Data: Laoyyh-uu-xxn e transgender patients on testosterone therapy should have results assessed using the male reference range. Wsdk-ry-nmbmg e transgender patients on hormone-modul ating therapy clinical judgment is advisedfor assessment. [facility] GENERAL CHEMISTRY Sodium 138 mmol/L 136 - 145 10/01 15:09 :00 [facility] GENERAL CHEMISTRY Alkaline Phosphatase 87 U/L 40 - 129 10/01 15:09 :00 [facility] GENERAL CHEMISTRY Potassium 4.2 mmol/L 3.5 - 5.1 10/01 15:09 :00 [facility] GENERAL CHEMISTRY ALT-SGPT 19 U/L 10 - 50 10/01 15:09 :00 [facility] GENERAL CHEMISTRY CO2 23 mmol/L 20 - 31 10/01 15:09 :00 [facility] GENERAL CHEMISTRY BUN 10 mg/dL 8 - 23 10/01 15:09 :00 [facility] HEMATOLOGY PROFILES Absolute Nucleated RBCs 0.0 x10(9)/L 0.0 - 0.0 10/01 15:09 :00 Interpretive Data: Normal values not established in patients less than 18 years old. [facility] HEMATOLOGY PROFILES Abs Basophils 0.02 x10(9)/L 0.00 - 0.30 10/01 15:09 :00 [facility] HEMATOLOGY PROFILES % Neutrophils 45.7 % 10/01 15:09 :00 [facility] HEMATOLOGY PROFILES Abs Immature Granulocytes 0.01 x10(9)/L 0.00 - 0.03 10/01 15:09 :00 [facility] HEMATOLOGY PROFILES Abs Eosinophils 0.04 x10(9)/L 0.05 - 0.50 10/01 15:09 :00 [facility] HEMATOLOGY PROFILES Abs Monocytes 0.44 x10(9)/L 0.30 - 0.90 10/01 15:09 :00 [facility] HEMATOLOGY PROFILES % Nucleated RBCs 0.0 % 10/01 15:09 :00 [facility] HEMATOLOGY PROFILES Absolute Granulocytes 1.40 x10(9)/L 1.70 - 7.00 10/01 15:09 :00 [facility] HEMATOLOGY PROFILES Abs Lymphocytes 1.15 x10(9)/L 0.90 - 2.90 10/01 15:09 :00 [facility] HEMATOLOGY PROFILES % Basophils 0.7 % 10/01 15:09 :00 [facility] HEMATOLOGY PROFILES % Immature Granulocytes 0.30 % 0.02 - 0.42 10/01 15:09 :00 [facility] HEMATOLOGY PROFILES % Eosinophils 1.3 % 10/01 15:09 :00 [facility] HEMATOLOGY PROFILES % Lymphocytes 37.6 % 10/01 15:09 :00 [facility] HEMATOLOGY PROFILES % Monocytes 14.4 % 10/01 15:09 :00 [facility] HEMATOLOGY PROFILES RDW SD 46.2 fL 35.1 - 43.9 10/01 15:09 :00 [facility] HEMATOLOGY PROFILES PLT 163 x10(9)/L 150 - 450 10/01 15:09 :00 [facility] HEMATOLOGY PROFILES MCHC 34.6 g/dL 32.0 - 36.0 10/01 15:09 :00 [facility] HEMATOLOGY PROFILES RDW CV 13.2 % 11.8 - 15.6 10/01 15:09 :00 [facility] HEMATOLOGY PROFILES MCV 94.3 fL 81.2 - 95.1 10/01 15:09 :00 [facility] HEMATOLOGY PROFILES MCH 32.6 pg 26.0 - 33.0 10/01 15:09 :00 [facility] HEMATOLOGY PROFILES HGB 13.1 g/dL 13.5 - 17.5 10/01 15:09 :00 Interpretive Data: Uwxskb-sj-wwf e transgender patients on testosterone therapy should have results assessed using the male reference range. Zcnp-zn-ohibr e transgender patients on hormone-modul ating therapy clinical judgment is advisedfor assessment. [facility] HEMATOLOGY PROFILES HCT 37.9 % 38.8 - 50.0 10/01 15:09 :00 Interpretive Data: Xkkluq-lw-nlf e transgender patients on testosterone therapy should have results assessed using the male reference range. Mnbr-is-bldnq e transgender patients on hormone-modul ating therapy clinical judgment is advisedfor assessment. [facility] HEMATOLOGY PROFILES RBC 4.02 x10(12)/L 4.32 - 5.72 10/01 15:09 :00 [facility] HEMATOLOGY PROFILES MPV 10.3 8.0 - 12.0 10/01 15:09 :00 [facility] HEMATOLOGY PROFILES WBC 3.06 x10(9)/L 3.50 - 10.50 10/01 15:09 :00 [facility] Consultation Notes Results Value Date Source Urology Clinic Note Chief Complaint pt i s here for labs and POP. has pinched nerves in R hip that shoot down leg. History of Present Illness 68 yo male s/p RC+IC on 10/13/24 presents to clinic for follow up. His post op recovery has been unremarkable. He has been doing well without issues. No problems with getting supplies. Good UOP. FINAL DIAGNOSIS: 1. LYMPH NODES, PELVIC, DISSECTION: THREE LYMPH NODES, NEGATIVE FOR MALIGNANCY (0/3) 2. URINARY BLADDER AND PROSTATE, RADICAL CYSTOPROSTATECTOMY: URINARY BLADDER: UROTHELIAL CARCINOMA IN SITU, MARGINS NEGATIVE NO EVIDENCE OF RESIDUAL INVASIVE UROTHELIAL CARCINOMA IDENTIFIED CHANGES CONSISTENT WITH TREATMENT EFFECTS PRESENT PLEASE SEE CAP SYNOPTIC REPORT FOR ADDITIONAL INFORMATION PROSTATE: ACINAR ADENOCARCINOMA GRADE GROUP 1 (MOI SCORE 3+3 = 6) INVOLVING LESS THAN 1% OF PROSTATE LIMITED TO PROSTATE MARGINS NEGATIVE PLEASE SEE CAP SYNOPTIC REPORT FOR ADDITIONAL INFORMATION 3. URETER, RIGHT DISTAL, EXCISION: BENIGN URETER NEGATIVE FOR MALIGNANCY 4. URETER, LEFT DISTAL, EXCISION: BENIGN URETER NEGATIVE FOR MALIGNANCY Review of Systems Negative unless otherwise noted in the HPI Physical Exam Vitals and Measurements Constitutional: Well developed, No apparent distress Eyes: Anicteric sclerae; no lid-lag or proptosis Cardiovascular: Normal Peripheral Perfusion, no edema Respiratory: Unlabored respirations, symmetrical chest expansion Musculoskeletal: No digital cyanosis, Normal range of motion Skin: Warm, dry and pink Neurologic: Cranial nerves II-XII grossly intact Psychiatric: Alert and oriented, Appropriate mood and affect Clinic Procedure None Assessment/Plan 1. Bladder cancer - s/p RC + IC on 10/13/24 w/ neoadjuvant ddMVAC - 4 cycles - CBC unremarkable, Cr 0.9 2. 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 Problem List/Past Medical History Ongoing Bladder cancer BPH (benign prostatic hyperplasia) Coronary artery disease Dyslipidemia Hypertension Hypothyroid Procedure/Surgical History Medications aspirin(aspirin 81 mg oral EC tablet delayed release), 81 mg= 1 Tablet(s), Oral, Daily atorvastatin(atorvastatin 40 mg oral tablet), 40 mg= 1 Tablet(s), Oral, Daily clopidogrel(clopidogrel 75 mg oral tablet), 75 mg= 1 Tablet(s), Oral, Daily cyanocobalamin(cyanocobalamin 5000 mcg oral tablet, disintegrating), 5000 mcg= 1 Tablet(s), Oral, Daily docusate-senna(docusate-senna 50 mg-8.6 mg oral capsule), 1 capsule(s), Oral, qEvening, PRN ferrous sulfate(ferrous sulfate 325 mg (65 mg elemental iron) oral delayed release tablet), 325 mg= 1 Tablet(s), Oral, Daily finasteride(finasteride 5 mg oral tablet), 5 mg= 1 Tablet(s), Oral, Daily levothyroxine(levothyroxine 50 mcg (0.05 mg) oral tablet), 50 mcg= 1 Tablet(s), Oral, Daily magnesium oxide(magnesium oxide 250 mg oral tablet), 250 mg= 1 Tablet(s), Oral, Daily metoprolol(metoprolol succinate ER 25 mg oral tablet, extended release), 25 mg= 1 Tablet(s), Oral, Daily Miscellaneous Medication(Vitamin A 2400 mcg oral capsule), 1 Tablet(s), Oral, Daily Miscellaneous Medication(Ivermectin oral liquid), 2 mL, Oral, qFriday omega-3 polyunsaturated fatty acids(Fish Oil 1200 mg oral capsule), 1200 mg= 1 capsule(s), Oral, Daily traMADol(traMADol 50 mg oral tablet), 50 mg= 1 Tablet(s), Oral, q6h, PRN traZODone(traZODone 100 mg oral tablet), 100 mg= 1 Tablet(s), Oral, At Bedtime Allergies codeine (Mild) Nausea Social History Smoking Status Former smoker quit longer than 12 months Family History Immunizations Vaccine Date Status Tdap (Boostrix)* 01/16/2023 Recorded Health Maintenance Lab Results Diagnostic Results Visit Information Attending Physician: Rg Marin MD Primary Care Physician: Cirilo Harrell DO Visit Date: 12/16/2024 I performed the history and examination of the patient and discussed the patient&rsquo;s management with the resident. I reviewed the note by the resident and agree with those documented findings and plan of care. Specialty care: I am giving ongoing care for a single, serious condition or a complex condition. 12/16/2024 Urology Clinic Note Chief Complaint Foll ow up for stent removal History of Present Illness 68 yo male s/p RC+IC on 10/13/24 presents to clinic for stent removal. His post op recovery has been unremarkable. He has been doing well with his urostomy bags and is ready for home health to sign off. He has been walking 2 miles per day. Endorses adequate hydration. CBC and BMP today. Incision well healed. Stents removed with no complications, urostomy bag changed. Basic Metabolic Panel (11/03/24) Na+ 137 K+ 3.9 Cl- 104 CO2 26 Anion gap 10 GLU 111 BUN 20 Creat 0.8 Estimated GFR f 95 Estimated GFR f Not Calculated Ca 8.9 Hemolysis Index 0 Icteria Index 0 Lipemia Index 0 FINAL DIAGNOSIS: 1. LYMPH NODES, PELVIC, DISSECTION: THREE LYMPH NODES, NEGATIVE FOR MALIGNANCY (0/3) 2. URINARY BLADDER AND PROSTATE, RADICAL CYSTOPROSTATECTOMY: URINARY BLADDER: UROTHELIAL CARCINOMA IN SITU, MARGINS NEGATIVE NO EVIDENCE OF RESIDUAL INVASIVE UROTHELIAL CARCINOMA IDENTIFIED CHANGES CONSISTENT WITH TREATMENT EFFECTS PRESENT PLEASE SEE CAP SYNOPTIC REPORT FOR ADDITIONAL INFORMATION PROSTATE: ACINAR ADENOCARCINOMA GRADE GROUP 1 (MOI SCORE 3+3 = 6) INVOLVING LESS THAN 1% OF PROSTATE LIMITED TO PROSTATE MARGINS NEGATIVE PLEASE SEE CAP SYNOPTIC REPORT FOR ADDITIONAL INFORMATION 3. URETER, RIGHT DISTAL, EXCISION: BENIGN URETER NEGATIVE FOR MALIGNANCY 4. URETER, LEFT DISTAL, EXCISION: BENIGN URETER NEGATIVE FOR MALIGNANCY Review of Systems Review of systems completed and pertinent information included in the HPI Physical Exam Vitals and Measurements General: No apparent distress, appears comfortable Neuro: Alert and oriented Psych: Cooperative, Appropriate mood and affect Assessment/Plan 1. Bladder cancer - s/p RC + IC on 10/13/24 w/ neoadjuvant ddMVAC - 4 cycles - Stent removal today RTC in 6 weeks with labs Ordered: CBC with Auto Differential, Routine collect, Blood, *Est. Start date 12/15/24 +/- 7 day(s), Bladder cancer, Order for Future Visit, Orig Ref Rg Garcia Comprehensive Metabolic Panel(CMP), Routine collect, Blood, *Est. Start date 12/15/24 +/- 7 day(s), Bladder cancer, Order for Future Visit, Orig Ref Rg Garcia Orders: Return to Clinic - [facility], *Est. 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, Return with Provider Rg Marin MD Original Referring Rg Murdock, RETURN 1, [place] [facility] [place] Reason 6 weeks with labs post op Problem List/Past Medical History Ongoing BPH (benign prostatic hyperplasia) Coronary artery disease Dyslipidemia Hypertension Hypothyroid Procedure/Surgical History Medications aspirin(aspirin 81 mg oral EC tablet delayed release), 81 mg= 1 Tablet(s), Oral, Daily atorvastatin(atorvastatin 40 mg oral tablet), 40 mg= 1 Tablet(s), Oral, Daily clopidogrel(clopidogrel 75 mg oral tablet), 75 mg= 1 Tablet(s), Oral, Daily cyanocobalamin(cyanocobalamin 5000 mcg oral tablet, disintegrating), 5000 mcg= 1 Tablet(s), Oral, Daily docusate-senna(docusate-senna 50 mg-8.6 mg oral capsule), 1 capsule(s), Oral, qEvening, PRN ferrous sulfate(ferrous sulfate 325 mg (65 mg elemental iron) oral delayed release tablet), 325 mg= 1 Tablet(s), Oral, Daily finasteride(finasteride 5 mg oral tablet), 5 mg= 1 Tablet(s), Oral, Daily levothyroxine(levothyroxine 50 mcg (0.05 mg) oral tablet), 50 mcg= 1 Tablet(s), Oral, Daily magnesium oxide(magnesium oxide 250 mg oral tablet), 250 mg= 1 Tablet(s), Oral, Daily metoprolol(metoprolol succinate ER 25 mg oral tablet, extended release), 25 mg= 1 Tablet(s), Oral, Daily Miscellaneous Medication(Vitamin A 2400 mcg oral capsule), 1 Tablet(s), Oral, Daily Miscellaneous Medication(Ivermectin oral liquid), 2 mL, Oral, qFriday omega-3 polyunsaturated fatty acids(Fish Oil 1200 mg oral capsule), 1200 mg= 1 capsule(s), Oral, Daily traMADol(traMADol 50 mg oral tablet), 50 mg= 1 Tablet(s), Oral, q6h, PRN traZODone(traZODone 100 mg oral tablet), 100 mg= 1 Tablet(s), Oral, At Bedtime Allergies codeine (Mild) Nausea Social History Smoking Status Former smoker quit longer than 12 months Family History Immunizations Vaccine Date Status Tdap (Boostrix)* 01/16/2023 Recorded Health Maintenance Lab Results Diagnostic Results Visit Information Attending Physician: Dipti LAW Primary Care Physician: Cirilo Harrell DO Visit Date: 11/03/2024 11/03/2024 Skin Care Team Consult Note Images 2024-10-18 10:48:47 Ostomy nurse teaching for discharge: Date and time: 10/18/2024 @ [id number] Referral Source: Urology Ostomy type: Urostomy Size: [id number] Stoma Description: red, oval, above the skin Peristomal Skin Description: redness/urine scald all the way around Ostomy Output: clear pink blood-tinged urine The patient is sitting/resting quietly in chair at time of visit. We received a message this AM stating that the patient says he is leaving at noon regardless of whether he has had the ostomy teaching or not. Arrangements had supposedly been made with her to provide instruction to the patient and his today at 1pm, but the patient's said she had not arranged that with anyone, that she told them that she does not need instruction, and she does not intend to be here for the teaching. She would like for us to proceed with teaching her without her here. The urostomy was placed on 10/13/2024. The patient has reviewed the ostomy educational materials previously delivered and has not watched the educational videos provided by [facility]. All ostomy teaching and pouch change done at this time with the patient. All questions answered. The patient demonstrated placement of ostomy pouch with assistance from the ostomy nurse. Patient is currently wearing a 2 piece flat appliance. The pouch was easily and gently removed. The patient verbalized no discomfort during the removal of the pouch. The peristomal skin was cleaned with warm water and pat dry. The stoma was measured and a new 2 piece flat pouch was placed. Heat was applied for 5 minutes by the patient/family. A prescription was placed in the chart for [employer] Sensura Andrea flat barrier #[id number] 20/month, [employer] Sensura [place] drainable ostomy pouch #[id number] 20/month, night bag #[id number] 2/month, Conveen leg bag #[id number] 2/month, and Brava elastic barrier strips #[id number] 1 box/month. This will need to be signed by the physician prior to the patient's discharge. We miSecured that team to let them know. Home Health would be beneficial post-discharge for review of teaching and ostomy care. Should the patient have HH, the patient/family understand that the Home Health is responsible for furnishing the ostomy supplies while they are seeing them. They are responsible for ordering the ostomy supplies (from a DME/mail order company) once they are discharged from . If they do not have HH then they should plan to order their supplies once they are discharged from the hospital. A packet of informational materials and extra supplies were given to the patient/family to go home with patient at time of discharge. Pt provided with Ostomy nurse contact information and knows to call with any questions or concerns. Ostomy nurse enrolled the patient in [employer] [facility], with the verbal consent of the patient, and sample supplies will be sent to the patient s home after discharge. Teach back points discussed: Care of ostomy, emptying appliance, and skin care. How to order ostomy supplies. When to notify physician. Signs/symptoms of dehydration and information to record (if physician requests). Normal changes in stoma post-operatively. Cut to fit technique, with application variables as it applies to the patient, frequency of appliance change and best time of day to do so. Thank you for the opportunity to consult on this patient! Please don't hesitate to contact the [facility] with any questions or concerns at [phone] (office), [phone], [phone], or by miSecure message. 10/18/2024 Skin Care Team Consult Note Images Ileal conduit/urostomy Ostomy nurse post-op assessment: Pt had ileal conduit (urostomy) placed on 10/13. Patient is resting in bed at time of visit. There are no family at the bedside. The patient will be discharging to home and his spouse will be available to help with ostomy care once discharged. Patient states she will likely not be able to return until day of discharge as they live 170 miles away. Assessment of stoma shows it budded, pink-red, moist, and above the skin line. There is bright red effluent present in the bag. Pouching system intact. There are two stents visible through the bag. A packet of educational materials and extra supplies will be delivered to bedside at time of teaching. The educational video has been ordered for the patient to view when they are feeling up to it. Ostomy nurse will return prior to discharge for one on one education on care of the urostomy. Please do not hesitate to contact the [facility] with any questions or concerns at [phone] (office), [phone], [phone], or by miSecure message. 3 10/14/2024 Cardiology IM Consult Note Chief Complai nt Cangrelor bridging Reason for Consultation Cangrelor bridging History of Present Illness 68M presenting for neobladder surgery 10/13 PMHx of multiple PCI most recently RCA PCI 03/2024. Cardiology was consulted to assist with cangrelor bridging due to outpatient engine dispatcher preference. Review of Systems All systems reviewed and negative except as per HPI. Physical Exam Vitals and Measurements T: 35.6 C TMIN: 35.6 C TMAX: 37 C HR: 72 RR: 14 BP: 156/94 SpO2: 98% WT: 76.4 kg General: Awake, alert HEENT: NCAT, MMM CV: RRR, nl S1/S2 Pulm: CTAB Abd: Soft Neuro: CN II-XII grossly intact, no FND Skin: warm, dry Assessment/Plan 68-year-old male with history of muscle invasive bladder cancer who was recently seen in urology clinic for evaluation of planned RC plus neobladder surgery on 10/13/2024. Patient follows with Dr. Avina, engine dispatcher with [employer], who recommended against stopping Plavix due to patient's extensive stenting of proximal, mid and distal RCA. The recommendation was to bridge with a GP IIb/IIIa agent. Cardiology was consulted to aid in this. ECG unremarkable. Limited TTE 09/10/2024: LVEF 62%, no wall motion abnormalities, normal size right and left atria, normal RV function, IVC normal. Assessment: Extensive CAD status post stents in proximal, mid, and distal RCA (Dr. Avina, [facility], most recent stent 04/2024) Muscle invasive bladder cancer Hypertension Hyperlipidemia Recommendation: - Patient s/p OR today, agree with reinitiation of Cangrelor. - Agree with re-initiation of ASA 81 (Currently scheduled to start 10/14). - Would continue cangrelor until post-operative bleeding risk felt stable. Once ready to transition to oral P2Y12 would recommend reloading with Plavix 600 mg once, immediately prior to cangrelor gtt discontinuation. The next day following loading dose he would then resume Plavix 75 once daily in addition to his already initiated ASA 81 and then be discharged on ASA 81 mg daily + Clopidogrel 75 mg daily for his DAPT regimen. - He may plan to follow up with his established outpatient engine dispatcher Dr. Avina. Patient discussed with Dr. Miguel. Cardiology consult service will sign off at this time. Please reach out for any additional questions or concerns. Problem List/Past Medical History Ongoing BPH (benign prostatic hyperplasia) Coronary artery disease Dyslipidemia Hypertension Hypothyroid Procedure/Surgical History Medications Inpatient acetaminophen(acetaminophen IV Soln), 1 g= 100 mL, IVPB, [id number] acetaminophen, 650 mg= 2 Tablet(s), Oral, q4h, PRN albuterol-ipratropium(albuterol-ipratro pium 2.5 mg-0.5 mg/3 mL inhalation solution), 3 mL, Hi-Flow Neb, Once, PRN amisulpride, 10 mg= 4 mL, IV, Once, PRN aspirin(aspirin 81 mg oral EC tablet delayed release), 81 mg= 1 Tablet(s), Oral, Daily atorvastatin, 40 mg= 1 Tablet(s), Oral, Daily cangrelor 50 mg + sodium chloride 0.9% 250 mL(cangrelor 50 mg inj 50 mg + sodium chloride 0.9% 250 mL 250 mL), Total volume (mL): 250, Injection, IV, 0.75 mcg/kg/min, Start date: 10/13/24 19:00:00 COMPRESSOR TECHNICIAN ceFAZolin, 2 g, IV Push, [id number] cefOXitin, 2 g, IV Push, OnCall dexAMETHAsone(dexAMETHAsone 10 mg/mL injectable solution), 8 mg= 0.8 mL, Slow IV Push, Once, PRN fentaNYL, 25 mcg= 0.5 mL, Slow IV Push, q5min, PRN fentaNYL, 50 mcg= 1 mL, Slow IV Push, q5min, PRN haloperidol(Haldol Inj (Imm Rel)), 1 mg= 0.2 mL, Slow IV Push, q15min, PRN HYDROmorphone(HYDROmorphone Inj), 0.5 mg= 0.5 mL, Slow IV Push, q5min, PRN influenza virus vaccine, inactivated(influenza virus Vaccine PF Syr Inj >= 65 years of age (Fluad)), 0.5 mL, IM, Unscheduled ketamine, 10 mg= 0.2 mL, Slow IV Push, As Directed, PRN ketorolac, 15 mg= 0.5 mL, IV Push, q6h ketorolac, 15 mg= 0.5 mL, IV, Once, PRN Lactated Ringers 1,000 mL(LR 1,000 mL), 1000 mL, IV levothyroxine, 50 mcg= 2 Tablet(s), Oral, Daily lidocaine(Lidocaine 1% inj solution (PF)), 10 mg= 1 mL, IntraDermal, As Directed, PRN lidocaine 2 g(Lidocaine 2g/250 mL D5W Premix 2 g), 2 g= 250 mL, IV LORazepam(LORazepam INJ), 0.5 mg, Slow IV Push, Once, PRN meperidine, 12.5 mg= 0.13 mL, Slow IV Push, Once, PRN metoclopramide, 10 mg= 2 mL, IV Push, [id number] metoprolol(metoprolol succinate ER 25 mg oral tablet, extended release), 25 mg= 1 Tablet(s), Oral, Daily ondansetron(ondansetron Inj), 4 mg= 2 mL, Slow IV Push, q4h, PRN ondansetron(ondansetron Inj), 4 mg= 2 mL, Slow IV Push, Once, PRN pantoprazole(pantoprazole inj), 40 mg= 10 mL, IV Push, Daily polyethylene glycol 3350 with electrolytes(Golytely), 240 mL, Oral, q10min, PRN prochlorperazine, 10 mg= 2 mL, Slow IV Push, q6h, PRN promethazine(Phenergan), 12.5 mg= 0.5 mL, Slow IV Push, q6h, PRN traMADol, 100 mg= 2 Tablet(s), Oral, q6h traZODone, 100 mg= 1 Tablet(s), Oral, At Bedtime Home aspirin(aspirin 81 mg oral EC tablet delayed release), 81 mg= 1 Tablet(s), Oral, Daily atorvastatin(atorvastatin 40 mg oral tablet), 40 mg= 1 Tablet(s), Oral, Daily clopidogrel(clopidogrel 75 mg oral tablet), 75 mg= 1 Tablet(s), Oral, Daily cyanocobalamin(cyanocobalamin 5000 mcg oral tablet, disintegrating), 5000 mcg= 1 Tablet(s), Oral, Daily ferrous sulfate(ferrous sulfate 325 mg (65 mg elemental iron) oral delayed release tablet), 325 mg= 1 Tablet(s), Oral, Daily finasteride(finasteride 5 mg oral tablet), 5 mg= 1 Tablet(s), Oral, Daily levothyroxine(levothyroxine 50 mcg (0.05 mg) oral tablet), 50 mcg= 1 Tablet(s), Oral, Daily magnesium oxide(magnesium oxide 250 mg oral tablet), 250 mg= 1 Tablet(s), Oral, Daily metoprolol(metoprolol succinate ER 25 mg oral tablet, extended release), 25 mg= 1 Tablet(s), Oral, Daily Miscellaneous Medication(Vitamin A 2400 mcg oral capsule), 1 Tablet(s), Oral, Daily Miscellaneous Medication(Ivermectin oral liquid), 2 mL, Oral, qFriday omega-3 polyunsaturated fatty acids(Fish Oil 1200 mg oral capsule), 1200 mg= 1 capsule(s), Oral, Daily traZODone(traZODone 100 mg oral tablet), 100 mg= 1 Tablet(s), Oral, At Bedtime Allergies codeine (Mild) Nausea Social History Smoking Status Former smoker quit longer than 12 months Family History Immunizations Vaccine Date Status Tdap (Boostrix)* 01/16/2023 Recorded Lab Results Diagnostic Results Attestation by Mely Miguel MD on October 14, 2024 11:41 I saw and evaluated the patient on Visit Date: 10/14/2024. Cardiac exam is normal, no murmur or gallop. I discussed the case with the civil engineering draftsperson and agree with the findings and plans as documented in the note above of 10/13/2024. I personally reviewed the available ECG from 10/01/2024, which was normal. Mely Miguel MD Professor of Clinical Medicine Division of Cardiovascular Medicine 10/13/2024 Op/Procedure Note Service Urology Atte nding Surgeon Rg Marin MD Resident Surgeon Elda Mckoy, PGY-5 Procedures Performed Robot-assisted laparoscopic radical cystectomy Bilateral pelvic lymph node dissection Creation of ileal conduit Pre-Operative Diagnosis Muscle invasive bladder cancer Post-Operative Diagnosis Same Indication for Procedure Muscle invasive bladder cancer, elected for RC+IC Findings Radical cystoprostatectomy and pelvic lymph node dissection with ileal conduit creation performed without intraoperative complications. Description of Procedure After consent was obtained, the patient was taken to the operating room and placed on the table in supine position. General anesthesia and preoperative antibiotics were administered. An orogastric tube was placed by anesthesia. Patient was then placed in low lithotomy, and was secured to the table using foam pads, tape, and cloth straps after thoroughly padding all pressure points. Patient was then placed in steep Trendelenburg, clipped of hair, and prepped and draped in standard fashion. Next, a Vargas catheter was placed and tube was secured to drapes. A 1 cm incision was made superior to the umbilicus, and a Veress needle was placed. After confirmation of intraperitoneal position via the drop test, pneumoperitoneum was successfully established via high flow. Next, the Veress was removed, an 8mm robotic trocar was placed without difficulty, and a 30-degree down camera was inserted. There was no injury to viscera upon inspection. Two bilateral 8mm robotic trocars were similarly placed under vision at the level of the umbilicus, approximately 8cm from midline. A 12mm assistant federal public defender port was placed superior to the right iliac crest, an 8mm robotic trocar was placed superior to the left iliac crest, and a 5mm assistant federal public defender port was placed in between the right robotic arm and the camera port at the level of the camera port. Notably, the port lateral to umbilicus on right was placed in the location of the eventual urostomy. The robot was then docked. Using a monopolar scissors and a ProGrasp forceps, the sigmoid colon was released from the abdominal sidewall and mobilized medially. The left ureter was identified. The ureter was carefully dissected. The ureteral dissection was continued proximally to the bifurcation of the iliac, and distally toward the bladder. The vas deferens and obliterated umbilical artery were identified and ligated using cautery, with good hemostasis achieved. Two hem-o-elvin clips were placed distally on the ureter and it was transected using scissors. A 2-0 silk stay suture was placed on the left ureter. Next, the cecum was mobilized and right ureter was identified and secured in the same fashion. At this time, a silk stay stitch was also placed on the terminal ileum approximately 15 cm from the ileocecal valve to mee the bowel for later reconstruction. At this point, bilateral pelvic lymph node dissection was performed. Lymphatic tissue was harvested from bilateral obturator packets, and placed in separate EndoCatch bags. Next, the vascular pedicles of the bladder were identified from the internal iliac artery and vesicle arteries. These were ligated using hem-o-elvin clips and scissors. Next posterior peritoneal attachments were ligated above the rectum. The endopelvic fascia was identified and dissection was carried posteriorly towards the rectum and inferiorly towards the prostatic apex. The prostatic pedicles were ligated using electrocautery. Anteriorly, the puboprostatic ligaments were taken down followed by the dorsal venous complex, and hemostasis was achieved using cautery. The existing Vargas catheter was removed. The urethra was then identified. A hem-o-elvin clip was placed distal to the prostate, and the urethra was transected using scissors distal to the clip. The specimen was placed in a 15mm EndoCatch bag. The 16Fr Vargas was replaced, and balloon was inflated with 10cc saline. Next, using the ProGrasp from the right side, a peritoneal window was made posterior to the descending colon and above the sacrum. The left ureter was passed through to the right. The strings from specimen bags as well as stay sutures from both ureters and the marked ileum were then clipped together using hemoloks, and these were grasped via the left lateral assistant federal public defender port. A 15Fr Lane drain was placed through the left assistant federal public defender port into the pelvis. Next, the robotic instruments were removed and the robot was undocked. Next, the camera port was opened inferiorly to ~4cm. The specimen bags, ureters, and bowel were brought out through this incision. Attention was then turned to creation of the ileal conduit. The previously marked ileal segments had a healthy arcade of arterial supply. The mesentery of this segment was divided and hemostasis achieved using cautery. The AUTUMN stapler was used to divide the bowel. The bowel anastomosis was performed with a AUTUMN stapler in a side to side fashion and closed with the stapler. Silk suture was used to take the tension off the staple lines and then to close the mesenteric window to prevent an internal hernia. Attention was turned to the conduit. The staple line of the distal end was sharply excised and the conduit was irrigated with saline. The ureteral anastamosis was performed. Each ureter was spatulated and one side of each ureter was sewn to the other with 4-0 biosyn in a running fashion. This was then sewn to the butt of the conduit in one anastomosis using the lee technique. Before the anastomosis was complete the diversion stents were placed over a wire. These were sewn into place with a chromic stitch. The previously marked stoma site was now identified on the patient's abdomen, which included the 8mm port site to the right of the umbilicus. A circular piece of skin and subcutaneous tissue was marked and excised using cautery. The anterior and posterior leaflets of rectus fascia were incised in a cruciate fashion, and two fingers were used to bluntly dilate the fascia. The ileal conduit with stents was then brought through the fascia out through the skin using a Marilee clamp. The conduit was attached to the fascia (anterior sheath) with four 2-0 Vicryl sutures in interrupted fashion. The stoma was attached to the skin with 3-0 Vicryl in a subcuticular terell-bud fashion. Next, a midline incision was closed with #1 PDS in a running fashion. The skin was closed with 4-0 Monocryl in a subcuticular fashion. Local anesthetic was infused. Dermabond was applied. The drain was secured using 2-0 nylon. The Vargas was then connected to a leg bag for drainage. The stoma appliance was placed. The patient was allowed to awaken from anesthesia and was transferred to recovery in stable condition. Attending surgeon Dr. Marin was present for the entire procedure. Anesthesia General Specimens Bladder and prostate Bilateral pelvic lymph nodes Drains 15Fr Lane drain 16Fr vargas as pelvic drain Bilateral ureteral diversion stents Estimated Blood Loss 100ml Complications None Disposition PACU, then floor. I was present for the entire procedure. 10/13/2024 Cardiology IM Consult Note Chief Complai nt Urologic surgery Reason for Consultation DAPT perioperatively Requesting Provider Attending Physician: Rg Marin MD History of Present Illness Patient is a 68-year-old male with history of muscle invasive bladder cancer who was recently seen in urology clinic for evaluation of planned RC plus neobladder surgery on 10/13/2024. Patient follows with Dr. Avina, engine dispatcher with [facility], who recommended against stopping Plavix due to patient's extensive stenting of proximal, mid and distal RCA. The recommendation was to bridge with a GP IIb/IIIa agent. Cardiology was consulted to help with bridging. Currently patient reports he feels well. He denies any chest pain, shortness of breath, nausea, vomiting, palpitations, orthopnea, lightheadedness, or syncope. He states he has felt in his normal state of health before coming to the hospital. No other concerns at this time. Review of Systems A complete 14 point review of systems was performed and negative except as otherwise noted in HPI. Physical Exam Vitals and Measurements T: 36.5 C HR: 89 RR: 18 BP: 157/87 SpO2: 98% WT: 76.4 kg (Dosing) BMI: 23.8 General: In no acute distress. HEAD: Head normocephalic, atraumatic. EYES: No scleral icterus. EOMI grossly intact. ENT: Hearing grossly intact. Moist mucous membranes. Cardiovascular: Regular rate, regular rhythm. Normal S1 and S2. No murmur, rub, or gallop appreciated. No evidence of peripheral edema. Radial pulses intact and symmetric bilaterally. Capillary refill within 2 seconds. Pulmonary: Lungs clear to auscultation bilaterally. Normal work of breathing with no accessory muscle use. Abdomen: Soft, non-distended, no tenderness to palpation. Musculoskeletal: No joint erythema or tenderness. No evidence of limb deformities. No evidence of peripheral cyanosis or clubbing. Neuro: Alert and Oriented. Moves all extremities well. No evidence of gross motor or sensory deficits or asymmetry. No evidence of focal neurological deficits. Psych: Normal mood and affect. Responds appropriately and cooperative with examination. Skin: Warm, dry. No prominent skin rashes appreciated. Assessment/Plan Patient is a 68-year-old male with history of muscle invasive bladder cancer who was recently seen in urology clinic for evaluation of planned RC plus neobladder surgery on 10/13/2024. Patient follows with Dr. Avina, engine dispatcher with [facility], who recommended against stopping Plavix due to patient's extensive stenting of proximal, mid and distal RCA. The recommendation was to bridge with a GP IIb/IIIa agent. Cardiology was consulted to aid in this. ECG unremarkable. Limited TTE 09/10/2024: LVEF 62%, no wall motion abnormalities, normal size right and left atria, normal RV function, IVC normal. Assessment: Extensive CAD status post stents in proximal, mid, and distal RCA (Dr. Avina, [facility], most recent stent 04/2024) Muscle invasive bladder cancer Hypertension Hyperlipidemia Recommendation: -Hold Plavix/ASA 3 days prior to surgery -Will bridge with cangrelor (0.75mcg/kg/min) in the perioperative window. Will stop this for the surgery and resume afterwards Patient to be staffed. Problem List/Past Medical History Ongoing BPH (benign prostatic hyperplasia) Coronary artery disease Dyslipidemia Hypertension Hypothyroid Procedure/Surgical History Medications Inpatient acetaminophen, 650 mg= 2 Tablet(s), Oral, q4h, PRN atorvastatin, 40 mg= 1 Tablet(s), Oral, Daily cangrelor 50 mg + sodium chloride 0.9% 250 mL(cangrelor 50 mg inj 50 mg + sodium chloride 0.9% 250 mL 250 mL), Total volume (mL): 250, Injection, IV, 0.75 mcg/kg/min, Start date: 10/10/24 11:19:00 COMPRESSOR TECHNICIAN influenza virus vaccine, inactivated(influenza virus Vaccine PF Syr Inj >= 65 years of age (Fluad)), 0.5 mL, IM, Unscheduled levothyroxine, 50 mcg= 2 Tablet(s), Oral, Daily metoprolol(metoprolol succinate ER 25 mg oral tablet, extended release), 25 mg= 1 Tablet(s), Oral, Daily traZODone, 100 mg= 1 Tablet(s), Oral, At Bedtime Home aspirin(aspirin 81 mg oral EC tablet delayed release), 81 mg= 1 Tablet(s), Oral, Daily atorvastatin(atorvastatin 40 mg oral tablet), 40 mg= 1 Tablet(s), Oral, Daily clopidogrel(clopidogrel 75 mg oral tablet), 75 mg= 1 Tablet(s), Oral, Daily cyanocobalamin(Vitamin B12) finasteride(finasteride 5 mg oral tablet), See Instructions ivermectin, 150 mcg/kg, Oral, Once levothyroxine(levothyroxine 50 mcg (0.05 mg) oral tablet), 50 mcg= 1 Tablet(s), Oral, Daily magnesium chloride metoprolol(metoprolol succinate ER 25 mg oral tablet, extended release), 25 mg= 1 Tablet(s), Oral, Daily Misc. Medication(METOPROLOL SUCCINATE ER 25 MG TB24), See Instructions multivitamin with iron(Iron 100 Plus), Oral, Daily omega-3 polyunsaturated fatty acids(Fish Oil), Oral tamsulosin(tamsulosin 0.4 mg oral capsule), 0.4 mg= 1 capsule(s), Oral, Daily traZODone(traZODone 100 mg oral tablet), 100 mg= 1 Tablet(s), Oral, At Bedtime vitamin A, Daily Allergies codeine (Mild) Nausea Social History Smoking Status Former smoker quit longer than 12 months Family History Immunizations Lab Results CBC (10/01/24) WBC L 3.06 Hgb L 13.1 Hct L 37.9 MCV 94.3 PLT 163 Auto Differential % nRBC 0.0 Absolute nRBC 0.0 % Neutrophils 45.7 Absolute Neut L 1.40 % Im Granulocyt .30 Absolute Im Gra 0.01 % Lymphocytes 37.6 % Monocytes 14.4 % Eosinophils 1.3 % Basophils 0.7 Comprehensive Metabolic Panel (10/01/24) Na+ 138 K+ 4.2 Cl- 105 CO2 23 Anion gap 14 GLU 101 BUN 10 Creat 0.9 Estimated GFR f 94 Estimated GFR f Not calculated Ca 9.7 Alk Phos 87 AST 23 ALT 19 T Bili 0.93 Total Protein 7.1 Alb 4.0 Hemolysis Index 0 Icteria Index 0 Lipemia Index 0 Basic Metabolic Panel - No data available Cardiac Panel - No data available Cardiology Labs (last three charted values) 0: 0 Coagulation Panel PT 11.5 (10/01/24) PTT 29.7 (10/01/24) INR 1.0 (10/01/24) No current coagulation data available. Hepatitis Panel - No data available Hepatic Function Panel - No data available Renal Function Panel - No data available Diabetes Lab Results (12 months) Thyroid Lab Results (12 months) Urinalysis - No data available Diagnostic Results Attestation by Bryn Gong MD on October 11, 2024 12:24 I personally saw and evaluated the patient, independently performed the critical/ortiz portions of the Evaluation and Management service, and discussed the management with the fellow on 10/11/2024. 68-year-old male with history of bladder cancer, CAD status post RCA stenting in April 2024 planned for RC and neurobladder surgery on 10/13/2024. Patient was on aspirin and Plavix before admission. Plavix has been held and patient is currently on cangrelor (0.75mcg/kg/min) which will be stopped prior to surgery and continued postoperatively until patient can be on Plavix again. Would recommend checking with the urology team if they would be okay keeping him on aspirin 81 mg daily. If aspirin increases his intraoperative bleeding risk, would have to hold it for now. 10/10/2024 Skin Care Team Consult Note Referral garima rce: Urology Date/Time: 10/01/2024 @ 1005 History of Present Illness as per MD note (most recent): Eva Puente is a 68 year old male with history of MIBC diagnosed May 2024 now s/p NAC here for preop workup of planned RC+neobladder 10/13/24. 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 PET scan obtained showing no evidence of metastatic disease. He then completed 4 cycles of ddMVAC on 08/12/24. Patient reports he tolerated this well without significant side effects. Patient has a history of prior KELL in 03/2024 on dAPT. He is planning to hold his plavix and aspirin prior to surgery. Stoma Marking: Patient assessed at this time for urostomy marking. Pt scheduled for neobladder surgery 10/13/[address] Marin. Patient understands the reason for marking. There are no family/friends present at time of visit. Patient states he will be living with his spouse and she will be able to assist after surgery. Jeffery will be available for teaching along with patient after surgery. Basic ostomy care explained to patient. Patient was provided with [employer] ostomy home skills kit by the Urology clinic. All questions were answered to the best of our ability. The abdomen and clothing were assessed to determine best place for marking should the neobladder not be an option. They were marked on the abdomen, 2.5 inches to the right and 0.5 inches above the umbilicus. Marking is/are agreeable to patient and within site and reach. They also understands that the site may need to be altered based on the surgeon s needs at the time of surgery. Will follow-up with patient/family after surgery should a urostomy be placed, otherwise we will not plan to see him post-operatively. Thank you for the opportunity to consult on this patient. Please contact the S[facility] as needed with questions or concerns. We can be reached at [phone] (office), [phone], [phone], or via [employer] message. 10/01/2024 Urology Clinic Note Chief Complaint bladder cancer History of Present Illness Eva Puente is a 68 year old male with history of MIBC diagnosed May 2024 now s/p NAC here for preop workup of planned RC+neobladder 10/13/24. 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 PET scan obtained showing no evidence of metastatic disease. He then completed 4 cycles of ddMVAC on 08/12/24. Patient reports he tolerated this well without significant side effects. Patient has a history of prior KELL in 03/2024 on dAPT. He is planning to hold his plavix and aspirin prior to surgery. PMH: HTN, HLD, CAD s/p angioplasty and stenting 03/2024 (on aspirin and plavix) PSH: TURBT, Neck surgery Review of Systems ROS per HPI Physical Exam Vitals and Measurements Gen: NAD Assessment/Plan 68yo male with history of MIBC s/p 4cycles of ddMVAC here for preop workup of planned RC+neobladder on 10/13/24. Discussed his upcoming surgery with him in detail. Discussed the risks of performing a neobladder. Discussed the high possibility that he may have to perform CIC in the future. Discussed that he will have urinary incontinence with a neobladder especially at night time. Discussed mucus formation and the problems associated with this. Discussed that sometimes we are unable to perform a neobladder if we are unable to get enough length during surgery or if there is concern for urethral involvement of cancer. Discussed that in that setting we would perform an ileal conduit. Patient acknowledges all of these risks and would like to continue with a neobladder. Discussed his radical cystectomy with him in detail. Discussed risks of surgery including pain, infection, cancer recurrence, poor wound healing, damage to surrounding structures, lymphoceles, slow return of bowel obstruction, heart attack, stroke, DVT, PE, pneumonia, and . Patient acknowledges the risks of surgery and would like to proceed. Proceed with surgery as planned on 10/13/24 DOS orders placed Labs, CXR, EKG today Problem List/Past Medical History Ongoing BPH (benign prostatic hyperplasia) Coronary artery disease Dyslipidemia Hypertension Hypothyroid Procedure/Surgical History Medications aspirin(aspirin 81 mg oral EC tablet delayed release), 81 mg= 1 Tablet(s), Oral, Daily atorvastatin(atorvastatin 40 mg oral tablet), 40 mg= 1 Tablet(s), Oral, Daily clopidogrel(clopidogrel 75 mg oral tablet), 75 mg= 1 Tablet(s), Oral, Daily cyanocobalamin(Vitamin B12) finasteride(finasteride 5 mg oral tablet), See Instructions ivermectin, 150 mcg/kg, Oral, Once levothyroxine(levothyroxine 50 mcg (0.05 mg) oral tablet), 50 mcg= 1 Tablet(s), Oral, Daily magnesium chloride metoprolol(metoprolol succinate ER 25 mg oral tablet, extended release), 25 mg= 1 Tablet(s), Oral, Daily Misc. Medication(METOPROLOL SUCCINATE ER 25 MG TB24), See Instructions multivitamin with iron(Iron 100 Plus), Oral, Daily omega-3 polyunsaturated fatty acids(Fish Oil), Oral tamsulosin(tamsulosin 0.4 mg oral capsule), 0.4 mg= 1 capsule(s), Oral, Daily traZODone(traZODone 100 mg oral tablet), 100 mg= 1 Tablet(s), Oral, At Bedtime vitamin A, Daily Allergies codeine (Mild) Nausea Social History Smoking Status Former smoker quit longer than 12 months Family History Immunizations Health Maintenance Lab Results Diagnostic Results Visit Information Attending Physician: Rg Marin MD Referring Physician: Rg Marin MD Primary Care Physician: Cirilo Harrell DO Visit Date: 10/01/2024 10/01/2024 Discharge Summaries Results Value Date Source Discharge Summary Date of Admission Date of Discharge 10/18/2024 Reason for Hospitalization bladder cancer presented for radical cystectomy and ileal conduit Hospital Course Patient was preadmitted for cangrelor drip due to inability to hold plavix prior to surgery. Patient underwent robot assisted RC+IC on 10/13. Hemoglobin stable therefore patient restarted on plavix on 10/17. By 10/18 patient was ambulating, tolerating food, having bowel function, ambulating. Labs and vitals stable. Plavix restarted without issues. Discharged in stable condition. Will return in 2 weeks for stent removal. Discharge Diagnoses Bladder cancer Other Diagnoses Ongoing BPH (benign prostatic hyperplasia) Coronary artery disease Dyslipidemia Hypertension Hypothyroid Operations and Procedures Consultants Inpt Anesthesiology Inpt Anesthesiology Peripheral/Central Blockade Inpt Medicine Cardiology Pending Labs None Discharge Disposition Home Medications New, Changed, or Refilled Medications docusate-senna (docusate-senna 1 capsule(s), Oral, qEvening, PRN: Constipation, 10 capsule(s), 0 Refill(s) traMADol (traMADol 50 mg) 50 mg, 1 Tablet(s), Oral, q6h, PRN: as needed for pain, 10 Tablet(s), 0 Refill(s) Medications to be Continued Miscellaneous Medication (Iverm 2 mL, Oral, qFriday Miscellaneous Medication (Vitam 1 Tablet(s), Oral, Daily aspirin (aspirin 81 mg oral EC 81 mg, 1 Tablet(s), Oral, Daily, 0 Refill(s) atorvastatin (atorvastatin 40 m 40 mg, 1 Tablet(s), Oral, Daily, 0 Refill(s) clopidogrel (clopidogrel 75 mg) 75 mg, 1 Tablet(s), Oral, Daily, 0 Refill(s) cyanocobalamin (cyanocobalamin 5,000 mcg, 1 Tablet(s), Oral, Daily ferrous sulfate (ferrous sulfat 325 mg, 1 Tablet(s), Oral, Daily finasteride (finasteride 5 mg) 5 mg, 1 Tablet(s), Oral, Daily levothyroxine (levothyroxine 50 50 mcg, 1 Tablet(s), Oral, Daily, 0 Refill(s) magnesium oxide (magnesium oxid 250 mg, 1 Tablet(s), Oral, Daily metoprolol (metoprolol succinat 25 mg, 1 Tablet(s), Oral, Daily, 0 Refill(s) omega-3 polyunsaturated fatty a 1,200 mg, 1 capsule(s), Oral, Daily traZODone (traZODone 100 mg) 100 mg, 1 Tablet(s), Oral, At Bedtime, 0 Refill(s) Discontinued Medications None Physical Exam at Discharge Vitals and Measurements Abdomen soft, nontender, incisions c/d/i Ostomy pink, moist, stents visible, urine yellow Time Spent 30mins Follow Up Appointments Follow Up Appt Surgery Urology, Follow up at Urology Oncology Clinic with Rg Marin MD Within 14 Days, Coordinate appt with No tests, post cystectomy stent removal, 2wks, Originally referred by Rg Marin Nursing/Other Orders 10/18/2024 History and Physicals Results Value Date Source History and Physical Chief Complaint History of Present Illness Eva Puente is a 68 year old male with history of MIBC diagnosed May 2024 now s/p NAC here for preadmission for transition from plavix to cangrelor drip prior to planned RC 10/13/24. 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 PET scan obtained showing no evidence of metastatic disease. He then completed 4 cycles of ddMVAC on 08/12/24. Patient reports he tolerated this well without significant side effects. Patient has a history of prior KELL in 03/2024 on dAPT. He denies any changes to his health. PMH: HTN, HLD, CAD s/p angioplasty and stenting 03/2024 (on aspirin and plavix) PSH: TURBT, Neck surgery Review of Systems ROS was completed and negative except those mentioned in the HPI. Physical Exam Vitals and Measurements T: 36.5 C HR: 89 RR: 18 BP: 157/87 SpO2: 98% WT: 76.4 kg BMI: 23.8 Gen: NAD, A&Ox3 Head: NC/AT Eyes: No scleral icterus Heart: No cyanosis Lungs: nonlabored breathing, normal respiratory rate Assessment/Plan Bladder cancer 68 year old male with MIBC s/p NAC here for preadmission for transition from plavix to cangrelor drip prior to planned RC+neobladder 10/13/24. 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, tid Code Status, Code Status Description: Full Code Intake and Output(I&O), 10/10/24 11:41:00 COMPRESSOR TECHNICIAN, q8h Notify Provider, 10/10/24 11:41:00 COMPRESSOR TECHNICIAN Instructions: Temperature > 38.5 C; Pulse < 50 or > 100; SBP < 100 or > 160; DBP < 60 or > 100; Urine Output < 30 mL/hr; mental status change; or significant respiratory status change., Constant Indicator O2 Initiation Standard, 10/10/24 11:41:00 COMPRESSOR TECHNICIAN, initiate/titrate oxygen to keep SpO2 > or = 92% Regular Diet, Ordered on 10/10/24 11:41:00 COMPRESSOR TECHNICIAN, Meal Start Time Breakfast 0700 to 0900 SCDs to bilateral LE's, 10/10/24 11:41:00 COMPRESSOR TECHNICIAN, Daily, Calf, when in bed Vital Signs, 10/10/24 11:41:00 COMPRESSOR TECHNICIAN, Frequency q4h Problem List/Past Medical History Ongoing BPH (benign prostatic hyperplasia) Coronary artery disease Dyslipidemia Hypertension Hypothyroid Procedure/Surgical History Medications Inpatient acetaminophen, 650 mg= 2 Tablet(s), Oral, q4h, PRN atorvastatin, 40 mg= 1 Tablet(s), Oral, Daily cangrelor 50 mg + sodium chloride 0.9% 250 mL(cangrelor 50 mg inj 50 mg + sodium chloride 0.9% 250 mL 250 mL), Total volume (mL): 250, Injection, IV, 0.75 mcg/kg/min, Start date: 10/10/24 11:19:00 COMPRESSOR TECHNICIAN influenza virus vaccine, inactivated(influenza virus Vaccine PF Syr Inj >= 65 years of age (Fluad)), 0.5 mL, IM, Unscheduled levothyroxine, 50 mcg= 2 Tablet(s), Oral, Daily metoprolol(metoprolol succinate ER 25 mg oral tablet, extended release), 25 mg= 1 Tablet(s), Oral, Daily traZODone, 100 mg= 1 Tablet(s), Oral, At Bedtime Home aspirin(aspirin 81 mg oral EC tablet delayed release), 81 mg= 1 Tablet(s), Oral, Daily atorvastatin(atorvastatin 40 mg oral tablet), 40 mg= 1 Tablet(s), Oral, Daily clopidogrel(clopidogrel 75 mg oral tablet), 75 mg= 1 Tablet(s), Oral, Daily cyanocobalamin(Vitamin B12) finasteride(finasteride 5 mg oral tablet), See Instructions ivermectin, 150 mcg/kg, Oral, Once levothyroxine(levothyroxine 50 mcg (0.05 mg) oral tablet), 50 mcg= 1 Tablet(s), Oral, Daily magnesium chloride metoprolol(metoprolol succinate ER 25 mg oral tablet, extended release), 25 mg= 1 Tablet(s), Oral, Daily Misc. Medication(METOPROLOL SUCCINATE ER 25 MG TB24), See Instructions multivitamin with iron(Iron 100 Plus), Oral, Daily omega-3 polyunsaturated fatty acids(Fish Oil), Oral tamsulosin(tamsulosin 0.4 mg oral capsule), 0.4 mg= 1 capsule(s), Oral, Daily traZODone(traZODone 100 mg oral tablet), 100 mg= 1 Tablet(s), Oral, At Bedtime vitamin A, Daily Allergies codeine (Mild) Nausea Social History Smoking Status Former smoker quit longer than 12 months Family History Immunizations Lab Results Diagnostic Results I performed the history and examination of the patient and discussed the patient&rsquo;s management with the resident. I reviewed the note by the resident and agree with those documented findings and plan of care. 10/10/2024 Vital Signs Vital Sign Value Date Comments Source SBP NIBP 170 mm[Hg] 10/18/2024 14:19:00 [facility] DBP NIBP 92 mm[Hg] 10/18/2024 14:19:00 [facility] Mean NIBP 118 mm[Hg] 10/18/2024 14:19:00 [facility] Heart Rate 82 bpm 10/18/2024 14:19:00 [facility] SpO2 98 % 10/18/2024 14:19:00 [facility] Temperature (Celsius) 36.2 Marilia 10/18/2024 14:19:00 [facility] Respiratory Rate 15 breaths/min 10/18/2024 14:19:00 [facility] SpO2 95 % 10/18/2024 09:47:10 [facility] Temperature (Celsius) 36.4 Mariila 10/18/2024 09:47:10 [facility] Mean NIBP 97 mm[Hg] 10/18/2024 09:47:10 [facility] Heart Rate 89 bpm 10/18/2024 09:47:10 [facility] SBP NIBP 132 mm[Hg] 10/18/2024 09:47:10 [facility] DBP NIBP 79 mm[Hg] 10/18/2024 09:47:10 [facility] Respiratory Rate 16 breaths/min 10/18/2024 09:47:10 [facility] SBP NIBP 159 mm[Hg] 10/18/2024 02:23:29 [facility] DBP NIBP 90 mm[Hg] 10/18/2024 02:23:29 [facility] SpO2 96 % 10/18/2024 02:23:29 [facility] Heart Rate 81 bpm 10/18/2024 02:23:29 [facility] Mean NIBP 113 mm[Hg] 10/18/2024 02:23:29 [facility] Height (cm) 179 cm 10/18/2024 02:00:00 [facility] Respiratory Rate 16 breaths/min 10/18/2024 02:00:00 [facility] Temperature (Celsius) 36.3 Marilia 10/18/2024 02:00:00 [facility] Mean NIBP 108 mm[Hg] 10/17/2024 22:32:17 [facility] SBP NIBP 142 mm[Hg] 10/17/2024 22:32:17 [facility] DBP NIBP 91 mm[Hg] 10/17/2024 22:32:17 [facility] [facility] Heart Rate 76 bpm 10/17/2024 22:32:17 [facility] Respiratory Rate 15 breaths/min 10/17/2024 22:32:17 [facility] SpO2 99 % 10/17/2024 22:32:17 [facility] Temperature (Celsius) 36.3 Marilia 10/17/2024 22:32:17 [facility] Height (cm) 179 cm 10/17/2024 02:00:00 [facility] Height (cm) 179 cm 10/16/2024 22:00:00 [facility] BMI 22.7 kg/m2 10/16/2024 15:00:00 [facility] Height (cm) 179 cm 10/16/2024 15:00:00 [facility] Weight (kg) 72.8 kg 10/16/2024 15:00:00 [facility] Weight (kg) 74.8 kg 10/15/2024 15:00:00 [facility] BMI 23.3 kg/m2 10/15/2024 15:00:00 [facility] BMI 23.6 kg/m2 10/14/2024 15:00:00 [facility] Weight (kg) 75.5 kg 10/14/2024 15:00:00 [facility] Weight (kg) 76.4 kg 10/13/2024 14:34:00 [facility] Other Action Taken discontinued Cangrel or drip, blood drawn 10/13/2024 14:00:00 [facility] Other Action Taken Reminded of NPO stat us at midnight. replaced bed with a broken mattress 10/13/2024 02:21:00 [facility] Dosing Weight (kg) 76.4 kg 10/10/2024 18:49:00 [facility] BMI 23.8 kg/m2 10/10/2024 15:42:00 [facility] SBP NIBP 128 mm[Hg] 10/01/2024 15:14:00 [facility] DBP NIBP 84 mm[Hg] 10/01/2024 15:14:00 [facility] Respiratory Rate 18 breaths/min 10/01/2024 15:14:00 [facility] Heart Rate 86 bpm 10/01/2024 15:14:00 [facility] BSA Raymundo 1.97 10/01/2024 15:14:00 [facility] Height (cm) 179 cm 10/01/2024 15:14:00 [facility] SpO2 99 % 10/01/2024 15:14:00 [facility] Temperature (Celsius) 36.4 Marilia 10/01/2024 15:14:00 [facility] BMI 24.5 kg/m2 10/01/2024 15:14:00 [facility] Weight (kg) 78.6 kg 10/01/2024 15:14:00 [facility] Encounters Location Location Details Encounter Type Encounter Number Reason For Visit Attending Provider ADM Date DC Date Status Source PCT Pre Op Clinic [id number] Sumeet Lemus 10/01 14:24 :37 10/02 05:59 :59 [facility] [id number] Rg Tomas 10/01 14:26 :37 10/02 05:59 :59 [facility] [place] [id number] Rg Melanyme 10/01 14:34 :23 10/03 14:28 :[address] [facility] Non-Admit [id number] Rg Melanyme 10/01 18:00 :00 10/02 05:59 :59 [facility]patient [id number] Gage Carlson 10/10 15:31 :50 10/18 18:00 :00 [facility] Outpatient [id number] Dipti Tania 11/03 15:46 :51 11/04 05:59 :[address] [facility] [id number] [facility] 15:47 :26 11/04 05:59 :59 [facility] Outpatient [id number] Rg Marin 12/16 15:18 :23 12/17 05:59 :[address] [facility] [id number] Rg Tomas 12/16 15:52 :34 12/17 05:59 :59 [facility] Social History Social History Date Source No data available for this section 12/17/2024 [facility] No data available for this section 11/04/2024 [facility] No data available for this section 10/18/2024 [facility] No data available for this section 10/03/2024 [facility] No data available for this section 10/02/2024 [facility]
[2025-07-09] VITALS (7 sets, daily range): BP systolic 110–173; BP diastolic 67–101; PULSE 62–76; RESP 16–18; TEMP 36.4–37; O2SAT 72–100; BMI 22.6
--- OUTSIDE RECORDS SUMMARY | 2025-07-09 10:52 | XMS_ITS | Encounter Summary ---
Author Organization [facility] Address [address] [address] Phone Care Team Providers Care Candy Spreader Helper Name Role Phone Kia Ziegler Demarcus LAW Primary Care Provider [phone] Cirilo Harrell DO Primary Care Provider [phone] Reason for Visit * Reason Onset Date Comments Medication Problem 01/10/2024 Encounter Details Date Type Department Care Team (Late st Contact Info) Description 01/10/2024 Telephone [facility]Y [facility] MED[facility]ILDING [address] [id number] Ye Irene MD [address] [id number] Medication Problem Social History Tobacco Use Types Packs/Day Years Used Date Smoking Tobacco: Former Cigarettes 1 1 970 - 1990 Smokeless Tobacco: Never Alcohol Use Standard Drinks/Week Comments Yes 0 (1 standard drink = 0.6 oz pur e alcohol) AUDIT-C Answer Date Recorded Q1: How often do you have a drink containing alcohol? 4 or more times a week 11/16/2023 Q2: How many drinks containi ng alcohol do you have on a typical day when you are drinking? 5 or 6 Q3: How often do you have si x or more drinks on one occasion? Daily or almost daily 11/16/2023 PHQ-2 Answer Date Recorded Patient Health Questionnaire-2 Score 3 11/16/2023 Sex and Gender Information Value Date Recorded Sex Assigned at Not on file Legal Sex Male 1:58 PM CDT Gender Identity Not on file Sexual Orientation Not on file documented as of this encounter Miscellaneous Notes * Telephone Encounter - Mely Kim LPN - 01/11/2024 1:09 PM CST Spoke with patient. He reports that he continues to have nocturia that starts around 3 am. He has changed the time he takes his Flomax to am and reports that he urinates more during the day with the change. Advised pt to continue the medication until his appointment on February 14. Pt agreed. OGICAL LAB TECHNICIAN * Telephone Encounter - Beckie Rosenberg - 01/10/2024 2:05 PM CST Patient is wanting to speak with the nurse concerning the medication that he started in November. Hesaid that the medication is not doing anything. Please call to discuss. OGICAL LAB TECHNICIAN documented in this encounter Plan of Treatment Not on file documented as of this encounter Visit Diagnoses Not on filedocumented in this encounter Additional Health Concerns Infection Onset Date Last Indicated Resolved Time MSSA Comment:Patient has MSSA but does not require isolation. 05/12/2024 05/12/2024 05/16/2024 8:36 A M CDT documented as of this encounter Care Teams Candy Spreader Helper Relationship Specialty Start Date End Date Kia Ziegler FNP [address] [place] [id number] PCP - General 06/27/23 05/11/24 Cirilo Harrell DO [facility] [place] [address] PCP - General Family Medicine 05/12/24 documented as of this encounter
--- OUTSIDE RECORDS SUMMARY | 2025-07-09 10:52 | XMS_ITS | Clinical Summary ---
Author Organization [facility] Address [address] [place] [address] Care Team Providers Care Hoop Driving Machine Operator Helper Name Role Phone Unavailable Primary Care Provider Unavailabl e Allergies Active Allergy Reactions Criticality Noted Date Comments Amlodipine Hypotension Medium 02/09/2022 Medications OMEGA-3 FATTY ACIDS-FISH OIL ORAL Take 1 Capsule by mouth daily. Active mv-min/folic/K1/lyc open/lutein (CENTRUM SILVER MEN ORAL) Take by mouth daily. Active olmesartan (BENICAR) 40 mg tabletIndications:H TN (hypertension), benign TAKE ONE TABLET BY MOUTH DAILY. 90 Tablet 3 3 Active levothyroxine 50 mcg tabletIndications:A cquired hypothyroidism Take 1 Tablet (50 mcg) by mouth daily in the morning. 90 Tablet 4 3 Active atorvastatin (LIPITOR) 20 mg tabletIndications:M ixed hyperlipidemia Take 1 Tablet (20 mg) by mouth daily. 100 Tablet 3 4 Active traZODone (DESYREL) 100 mg tabletIndications:P rimary insomnia TAKE ONE TABLET (100 MG) BY MOUTH DAILY AT BEDTIME. 30 Tablet 6 4 Active Active Problems Problem Noted Date Diagnosed Date Pulmonary hypertension 11/20/2023 Overview (11/20/2023): This was noted on CT Chest scan on 11/19/2023 Atherosclerosis of [place] co ronary artery of [place] heart without angina pectoris 11/20/2023 Overview (11/20/2023): This was noted on CT Chest scan on 11/19/2023 Chronic pain of multiple joints 11/09/2022 Chondromalacia of hip, left 07/12/2022 Tear of left acetabular labrum 07/12/2022 Spinal stenosis of lumbar region 07/12/2022 Lumbar foraminal stenosis 07/12/2022 DDD (degenerative disc disease), lumbar 03/29/20 Osteoarthritis of right hip 03/29/2022 HTN (hypertension), benign 02/09/2022 Acquired hypothyroidism 02/09/2022 Mixed hyperlipidemia 02/09/2022 Other chest pain 12/21/2021 Immunizations Immunization Administration Dates Next Due (ADACEL/BOOSTRIX)(10 YR UP) TDAP VACCINE, 0.5ML, IM 01/16/2023 Social History Tobacco Use Types Packs/Day Years Used Date Smoking Tobacco: Never Smokeless Tobacco: Never Tobacco Cessation:Counseling Given: Not Answered Alcohol Use Standard Drinks/Week Comments Yes 0 (1 standard drink = 0.6 oz pur e alcohol) Financial Resource Strain Answer Date R ecorded How hard is it for you to pa y for the very basics like food, housing, medical care, and heating? Not very hard 11/03/2022 Food Insecurity Answer Date Recorded In the past 12 months, have you worried that your food would run out before you had money to buy more? Never true 11/03/2022 In the past 12 months, did y ou run out of food and didn't have money to buy more? Never true 11/03/2022 Transportation Needs Answer Date Record ed In the past 12 months, has l ack of transportation kept you from medical appointments or from getting medications? No 11/03/2022 Lack of Transportation (Non-Medical) Not on file 11/03/2022 Feeling Safe Answer Date Recorded Are you in a relationship wi th someone who hurts you emotionally and/or physically? No 01/24/2023 Sex and Gender Information Value Date Recorded Sex Assigned at Not on file Legal Sex Male 9:07 AM CDT Gender Identity Not on file Sexual Orientation Not on file Last Filed Vital Signs Vital Sign Reading Time Taken Comments Blood Pressure 130/88 11/08/2023 1:22 PM REHANGER Pulse 81 11/08/2023 1:22 PM REHANGER Temperature 36.4 C (97.5 F) 11/08/2023 1:22 PM REHANGER Respiratory Rate 20 06/08/2023 9:18 AM CDT Oxygen Saturation 96% 11/08/2023 1:22 PM REHANGER Inhaled Oxygen Concentration - - Weight 83.1 kg (183 lb 3.2 oz) 11/08/2023 1:22 P M REHANGER Height 180.3 cm (5' 11 ) 11/08/2023 1:22 PM REHANGER Body Mass Index 25.55 11/08/2023 1:22 PM REHANGER Plan of Treatment Health Maintenance Due Date Last Done Comments COLORECTAL SCREENING 2001 Colorectal Cancer Screening 2001 FIT-DNA Q 3 years 2001 FIT/FOBT Q 1 year 2001 Flex Sig/CT Colonography Q 5 years 2001 PNEUMOCOCCAL VACCINE 50+ YEA RS (1 of 1 - PCV) 2006 ZOSTER VACCINE (1 of 2) 2006 RSV VACCINE (60+ or ) (1 - Risk 60-74 years 1-dose series) 2016 INFLUENZA VACCINE (#1) 2025 3, 07/19/2021, 07/19/2021 DTAP/TDAP/TD VACCINES (2 - T d or Tdap) 01/16/2033 01/16/[address] [place] [address] [place] [id number] [place] [id number]
--- OUTSIDE RECORDS SUMMARY | 2025-07-09 10:52 | XMS_ITS | Encounter Summary ---
Author Organization [facility] Address [address] [place] [address] Phone Care Team Providers Care Tile Setter Apprentice Name Role Phone Cirilo Harrell DO Primary Care Provider Reason for Visit * Reason Comments Med Refill Encounter Details Date Type Department Care Team (Late st Contact Info) Description 11/29/2024 Refill UROLOGY CLINIC MEDICAL OFFICE BUILDING [address] [id number] Ye Irene MD [address] [id number] Hesitancy of micturition; Benign prostatic hyperplasia with nocturia Social History Tobacco Use Types Packs/Day Years Used Date Smoking Tobacco: Former Cigarettes 1 21 1 970 - 1990 Smokeless Tobacco: Never Alcohol Use Standard Drinks/Week Comments Yes 0 (1 standard drink = 0.6 oz pur e alcohol) 2-3 beer daily AUDIT-C Answer Date Recorded Q1: How often do you have a drink containing alc ohol? 2-3 times a week 06/05/2024 Q2: How many drinks containi ng alcohol do you have on a typical day when you are drinking? 1 or 2 06/05/2024 Q3: How often do you have si x or more drinks on one occasion? Never 06/05/2024 PHQ-2 Answer Date Recorded Patient Health Questionnaire-2 Score 0 06/05/2024 [facility] - Mental Health Answer Date Recorde d Little interest or pleasure in doing things Not at all 06/05/2024 Feeling down, depressed, or hopeless Not at all 06/05/2024 Feeling of Stress Not on file 06/05/2024 Sex and Gender Information Value Date Recorded Sex Assigned at Not on file Legal Sex Male 1:58 PM CDT Gender Identity Not on file Sexual Orientation Not on file documented as of this encounter Miscellaneous Notes * Telephone Encounter - BRYON Martin - 12/01/2024 8:27 AM WASHER CUTTER No longer needed after surgery. ER CUTTER * Telephone Encounter - Ye Irene MD - 12/01/2024 8:23 AM WASHER CUTTER No ER CUTTER * Telephone Encounter - BRYON Martin - 12/01/2024 8:19 AM WASHER CUTTER Patient had radical cystectomy. Is this still needed? ER CUTTER documented in this encounter Plan of Treatment Not on file documented as of this encounter Visit Diagnoses Diagnosis Hesitancy of micturition Urinary hesitancy Benign prostatic hyperplasia with nocturia documented in this encounter Care Teams Tile Setter Apprentice Relationship Specialty Start Date End Date Cirilo Harrell DO [address] [place] [address] PCP - General Family Medicine 05/12/24 documented as of this encounter
--- OUTSIDE RECORDS SUMMARY | 2025-07-09 10:52 | XMS_ITS | Patient Health Record ---
Author Organization [facility] Billing Info Address [address] [place] [address] Care Team Providers Care Marking Stitcher Name Role Phone Cecy Osuna DO Primary Care Provider Unavaila ble Allergies Allergen (clinical drug ingredient) Drug/Non Drug Allergy documented on EMR Reaction Allergy Type Onset Date Status codeine CODEINE (uncoded) Unknown Allergy Ac tive meperidine DEMEROL (uncoded) Unknown Allergy A ctive Reason For Referral No Information Medications Medication SIG (Take, Route, Frequency, Duration) Notes Start Date End Date Status Losartan Potassium 100 MG 1 tablet Orall y Once a day for 90 days Active Escitalopram Oxalate 10 MG 1 tablet Oral ly Once a day for 30 day(s) 12/13/2020 Active Hydrochlorothiazide 12.5 MG 1 capsule in the morning Orally Once a day for 90 days Active Amlodipine Besylate 5 MG as directed Ora lly Once a day at night for 90 days 12/10/2020 Active Levothyroxine Sodium 75 MCG 1 tablet in the morning on an empty stomach Orally Once a day for 90 days Active Aspirin 325 MG 1 tablet Orally Once a day for 30 day(s) Active Atorvastatin Calcium 20 MG 1 tablet Oral ly Once a day for 90 days Active Olmesartan Medoxomil 40 MG 1 tablet Oral ly Once a day for 30 day(s) 11/02/2021 Active Immunizations Vaccine Route Administration Date Status Comme nts TETANUS (Past vaccine of unknown type) Unknown 11/12/2005 Administered Time and date u nknown Social History Tobacco Use: Social History Observation Description Date Details (start date - stop date) Former Smoker NA - NA Tobacco Status: Question Answer Notes Patient is a former smoker Problems Problem Type SNOMED Code ICD Code Onset Dates Problem Status W/U Status Risk Notes Problem Spermatocele (608.1) Active confirmed Migrated [id number] 09/25/2013 Problem 241254473 Shortness of breath (R06.02) Active confirmed He has a former smoker as well as occupational and his 's a smoker to see may have some degree of obstructive lung disease but he has an abnormal ECG and has been told about abnormal imaging studies in the past of his heart. I arranged for an evaluation with a stress test he cannot walk on a treadmill because of his severe spinal disease. I ordered a Lexiscan stress test. Problem 56645496 Essential hypertension (I10) Active confirmed Problem 370083882 Depression with anxiety (F41.8) Active confirmed Problem 28037483 Hyperlipidemia LDL goal <130 (E78.5) Active confirmed I left him on his current dose of statin and will check his lipids and LFTs Problem 607229149 Liver lesion (K76.9) Active confirmed Problem 707697677 Lesion of liver (K76.9) Active confirmed Seen on CT 02/28. Problem 97206402 Hypothyroidism, unspecified type (E03.9) Active confirmed Problem 57537150 Hyperlipidemia, unspecified hyperlipidemia type (E78.5) Active confirmed Problem 64464884 High cholesterol (E78.00) Active confirmed Problem 00367518 Hypertension, unspecified type (I10) Active confirmed I added amlodipine 5 mg daily for afternoon. Early evening dosing and he will continue with his ARB and his HCTZ I ordered a BMP Plan Of Treatment Pending Test Test Name Order Date TSH W/REFLEX TO FT4 ([id number]) 11/24/2010 Insurance Providers Payer Name Payer Address Payer Phone Subscriber Number Group Number Insured Name Patient Relationship to Insured Coverage Start Date Coverage End Date [facility] PPO PREF[employer]ED CARE BLUE [address] [place], [place] [id number] Mnaas [place]ente Self - patient is the insured 9 5 Medical (General) History Medical History History ICD Code MIGRAINE HYPERLIPIDEMIA ANXIETY ADD HTN UNHAPPINESS DISORDER ARTHRITIS THYROID DISEASE HIGH CHOLESTEROL HIGH BLOOD PRESSURE lump on left scrotum Surgical History Surgery Date(Month/Year) vasectomy TONSILLECTOMY neck surgery CERVICAL DISKECTOMY LASIX EYE SURGERY COLONOSCOPY Hospitalization History Reason Date(Month/Year) SEE ABOVE LIST
--- OUTSIDE RECORDS SUMMARY | 2025-07-09 10:52 | XMS_ITS | Patient Health Record ---
Author Organization [facility] Address [address] [place] [address] Care Team Providers Care Line Construction Supervisor Name Role Phone RenéPriscilaew Primary Care Provider SOPHY Ashby Unavailable [phone] Allergies Allergen (clinical drug ingredient) Drug/Non Drug Allergy documented on EMR Reaction Allergy Type Onset Date Status codeine Codeine Unknown Drug Allergy Active Reason For Referral No Information Medications Medication SIG (Take, Route, Frequency, Duration) Notes Start Date End Date Status Biotin Active Fish Oil Active Atorvastatin Calcium 20 MG 1 tablet Oral ly Once a day Active Aspirin 81 MG 1 tablet Orally Once a day Active Multivitamin - 1 tablet Orally Once a day Active Meloxicam 15 MG 1 tablet Orally Once a day; Duration: 30 day(s) 01/06/2021 Active Levothyroxine Sodium Active Losartan Potassium A ctive Social History Tobacco Use: Social History Observation Description Date Details (start date - stop date) Former Smoker NA - NA Tobacco Use/Smoking Question Answer Notes Are you a former smoker Problems Problem Type SNOMED Code ICD Code Onset Dates Problem Status W/U Status Risk Notes Problem Carpal tunnel syndrome (64423949) Left carpal tunnel syndrome (G56.02) Active confirmed Problem Carpal tunnel syndrome (27737528) Right carpal tunnel syndrome (G56.01) Active confirmed Problem Full thickness rotator cuff tear (253031043) Complete tear of left rotator cuff, unspecified whether traumatic (M75.122) Active confirmed Problem Spinal stenosis in cervical region (disorder) (78312297) Foraminal stenosis of cervical region (M48.02) Active confirmed Problem History of myocardial infarction (310723536) History of myocardial infarction (I25.2) Active confirmed Problem History of arthrodesis (150578968) History of cervical spinal arthrodesis (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) Active confirmed Plan Of Treatment Pending Test Test Name Order Date *XRAY CERVICAL SPINE AP/LAT 2-3V 021 Insurance Providers Payer Name Payer Address Payer Phone Subscriber Number Group Number Insured Name Patient Relationship to Insured Coverage Start Date Coverage End Date [facility] [address] [place] [address] [id number] [place] Self - patient is the insured 1 Medical (General) History Medical History History ICD Code Heart disease I51.9 Hypertension I10 Thyroid disorder E07.9 High cholesterol E78.00 Surgical History Surgery Date(Month/Year) ACDF Surgery--Dr. Mina White 2004 [facility] 02/01/21 Hospitalization History Reason Date(Month/Year)
--- OUTSIDE RECORDS SUMMARY | 2025-07-09 10:52 | XMS_ITS | Patient Health Record ---
Author Organization [facility] Address [address] [address] Care Team Providers Care Blender Machine Operator Name Role Phone Cecy Osuna DO Primary Care Provider Unavaila ble Sandip Nevarez Unavailable [phone] Emily Contreras PA-C Unavailable Unavaila ble Reason For Referral No Information Medications Medication SIG (Take, Route, Frequency, Duration) Notes Start Date End Date Status predniSONE 10 MG Oral 02/18/2018 Ac tive Levothyroxine Sodium 75 MCG Oral 02/18/2018 Active Losartan Potassium-HCTZ 100-12.5 MG Oral 01/16/2018 Active Cyclobenzaprine HCl 10 MG Oral 02/18/2018 Active Plan Of Treatment No Information Insurance Providers Payer Name Payer Address Payer Phone Subscriber Number Group Number Insured Name Patient Relationship to Insured Coverage Start Date Coverage End Date [employer] [address] [place] [address] [id number] Manas Boyce Self - patient is the insured [employer] [address] [place] [address] [id number] Manas Boy[place] Self - patient is the insured Medical (General) History Surgical History Surgery Date(Month/Year) Cervical spine surgery; 03/13/2018
--- OUTSIDE RECORDS SUMMARY | 2025-07-09 10:52 | XMS_ITS | Clinical Summary ---
Author Organization [facility] Address [address] [place] [address] Phone Care Team Providers Care Baker Helper Name Role Phone Cirilo Harrell DO Primary Care Provider [phone] Allergies Active Allergy Reactions Criticality Noted Date Comments Amlodipine Other Medium 02/09/2022 Codeine Nausea/Vomiting 02/15/2024 Medications atorvastatin (Lipitor) 20 mg tablet Take 40 mg by mouth 1 (one) time each day. 4 Active levothyroxine (Synthroid, Levoxyl) 50 mcg tablet Take 50 mcg by mouth. 3 Active olmesartan (BENIcar) 40 mg tablet Take 1 tablet by mouth 1 (one) time each day. 3 Active traZODone (Desyrel) 100 mg tablet TAKE ONE TABLET (100 MG) BY MOUTH DAILY AT BEDTIME. 3 Active omega-3 acid ethyl esters (Lovaza) 1 gram capsule Take 1 g by mouth 2 (two) times a day. Active multivitamin tablet Take 1 tablet by mouth 1 (one) time each day. Active metoprolol succinate XL (Toprol-XL) 25 mg 24 hr tablet 25 mg 1 (one) time each day. Active clopidogreL (Plavix) 75 mg tablet Take 75 mg by mouth 1 (one) time each day. Active aspirin 81 mg EC tablet Take 81 mg by mouth 1 (one) time each day. Active tamsulosin (Flomax) 0.4 mg 24 hr capsuleIndicatio ns:Hesitancy of micturition,Angel gn prostatic hyperplasia with nocturia,Incompl ete bladder emptying,Weak urinary stream TAKE ONE CAPSULE (0.4 MG TOTAL) BY MOUTH ONE TIME EACH DAY. 90 capsule Active Additional Information Patient not taking.Reported on 03/17/2025 finasteride (Proscar) 5 mg tablet Take 5 mg by mouth 1 (one) time each day. Do not crush, chew, or split. Active Active Problems Problem Noted Date Diagnosed Date Chronic obstructive pulmonary disease 04/23/2024 Bladder mass 04/17/2024 Coronary atherosclerosis 04/09/2024 Benign prostatic hyperplasia 12/18/2023 Pulmonary hypertension 11/20/2023 Overview (05/29/2024): This was noted on CT Chest scan on 11/19/2023 This was noted on CT Chest scan on 11/19/2023 Chronic pain of multiple joints 11/09/2022 Chondromalacia of hip, left 07/12/2022 Lumbar foraminal stenosis 07/12/2022 Spinal stenosis of lumbar region 07/12/2022 Tear of left acetabular labrum 07/12/2022 DDD (degenerative disc disease), lumbar 03/29/20 Osteoarthritis of right hip 03/29/2022 Acquired hypothyroidism 02/09/2022 HTN (hypertension), benign 02/09/2022 Mixed hyperlipidemia 02/09/2022 Encounters Date Type Department Care Team Description 04/22/2025 Refill [facility] [address] [place] [id number] Ye Irene MD 04/22/2025 Results Follow-Up [facility] [address] urogram from Last 3 Months Immunizations Immunization Administration Dates Next Due Tdap 01/16/2023 Family History Medical History Relation Comments Brain cancer Father Stroke Mother Anesthesia problems Neg Hx Malig Hypertension Neg Hx Malig Hyperthermia Neg Hx Pseudochol deficiency Neg Hx Relation Status Comments Father Mother Social History Tobacco Use Types Packs/Day Years Used Date Smoking Tobacco: Former Cigarettes 1 21 1 0 - 1990 Smokeless Tobacco: Never Tobacco Cessation:Counseling Given: Not Answered Alcohol Use Standard Drinks/Week Comments Yes 0 (1 standard drink = 0.6 oz pur e alcohol) 2-3 beer daily AUDIT-C Answer Date Recorded Q1: How often do you have a drink containing alc ohol? 2-3 times a week 03/17/2025 Q2: How many drinks containi ng alcohol do you have on a typical day when you are drinking? 1 or 2 03/17/2025 Q3: How often do you have si x or more drinks on one occasion? Never 03/17/2025 PHQ-2 Answer Date Recorded Patient Health Questionnaire-2 Score 0 03/17/2025 [facility] - Mental Health Answer Date Recorde d Little interest or pleasure in doing things Not at all 03/17/2025 Feeling down, depressed, or hopeless Not at all 03/17/2025 Feeling of Stress Not on file 03/17/2025 Sex and Gender Information Value Date Recorded Sex Assigned at Not on file Legal Sex Male 1:58 PM CDT Gender Identity Not on file Sexual Orientation Not on file Last Filed Vital Signs Vital Sign Reading Time Taken Comments Blood Pressure 133/82 03/17/2025 9:32 AM CDT Pulse 67 03/17/2025 9:32 AM CDT Temperature 37 C (98.6 F) 03/17/2025 9:32 AM CDT Respiratory Rate 18 03/17/2025 9:32 AM CDT Oxygen Saturation 99% 03/17/2025 9:32 AM CDT Inhaled Oxygen Concentration - - Weight 77.1 kg (170 lb) 03/17/2025 9:32 AM CDT Height 179.1 cm (5' 10.5 ) 03/17/2025 9:32 AM CD T Body Mass Index 24.05 03/17/2025 9:32 AM CDT Plan of Treatment Health Maintenance Due Date Last Done Comments CT Colonography 1955 Colonoscopy 1955 Colorectal Cancer Screening 1955 FIT-DNA 1955 FIT 1955 FOBT 1955 Lipid Panel 1955 Sigmoidoscopy 1955 MMR Vaccines (1 of 1 - Standard series) 1957 COVID-19 Vaccine (#1) 1961 Varicella Vaccines (1 of 2 - 13+ 2-dose series) 1969 Social Drivers of Health (SDoH) 1974 Pneumococcal Vaccine: 50+ Years (1 of 2 - PCV) 1975 Pneumococcal Vaccine (1 of 2 - PCV) 1975 Zoster Vaccines (1 of 2) 1975 RSV Vaccines (1 - Risk 60-74 years 1-dose series) 2016 DTaP,Tdap,and Td Vaccines (2 - Td or Tdap) 02/13/2023 01/16/2023 Influenza Vaccine (#1) 2025 Creatinine Level 03/09/2026 03/09/2025, 05/12/2024 Potassium Level 03/09/2026 03/09/2025, 05/12/2024 Complete Fall Risk Assessment 03/17/2026 03/17/2025, 11/16/2023, 11/16/2023, Additional history exists Depression Screening 03/18/2026 03/17/2025 HIB Vaccines Aged Out No longer eligi ble based on patient's age to complete this topic HPV Vaccines Aged Out No longer eligi ble based on patient's age to complete this topic Hepatitis A Vaccines Aged Out No long er eligible based on patient's age to complete this topic Hepatitis B Vaccines Aged Out No long er eligible based on patient's age to complete this topic IPV Vaccines Aged Out No longer eligi ble based on patient's age to complete this topic Meningococcal B Vaccine Aged Out No l onger eligible based on patient's age to complete this topic Meningococcal Vaccine Aged Out No emi tessy eligible based on patient's age to complete this topic Rotavirus Vaccines Aged Out No longer eligible based on patient's age to complete this topic Medical Devices Implanted Type Area Earth Burner Device Identifier Shelf Expiration Date Model / Serial / Lot Stent Stent N/A: Heart Procedures Procedure Name Priority Date/Time Associated Diagnosis Comments CT UROGRAM Routine 04/21/2025 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 (CMS/HCC) Prostate cancer (CMS/HCC) COMPREHENSIVE METABOLIC PANEL Routine 03/09/2025 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 (CMS/HCC) from Last 3 Months or Most Recently Relevant to Health Maintenance Results * CT urogram (04/21/2025) Anatomical Region Laterality Modality Body Computed Tomogra phy us Ye Irene MD IMG CT PROCEDURES Final Result * Comprehensive Metabolic Panel (03/09/2025) Blood Venous blood specimen / Unknown us Ye Irene MD LAB BLOOD ORDERABLES Fin al Result [facility] [address] [id number] from Last 3 Months or Most Recently Relevant to Health Maintenance Insurance [employer] MEDICARE Advance Directives For more information, please contact: [phone] (7:30 AM - 5PM [facility], 7 days a week) * Full Code (Latest Code Status on File) Date Activated Date Inactivated Comments 05/21/2024 10:03 AM 05/21/2024 6:46 PM Care Teams Baker Helper Relationship Specialty [place] [address] [place] [phone] PCP - General Family Medicine 05/12/24
--- NOTE | 2025-07-09 10:56 | ECG_ITS ---
[facility] Date: 2025-07-09 Pat Name: Manas Puente Department: Room: Gender: Male Commercial Intern: : 1955 Requested By: Juliocesar Toscano Order Number: [id number] Julieta MD: Woodrow De Santiago M.D. Measurements Intervals [place] Rate: 67 P: 64 UT: 163 QRS: 68 QRSD: 93 T: 53 QT: 363 QTc: 385 Interpretive Statements SINUS RHYTHM Compared to ECG 03/28/2024 10:25:34 T-wave abnormality no longer present Electronically Signed On 07-10-2025 22:43:54 CDT by Woodrow De Santiago M.D. [email or web address] [id number]
--- NOTE | 2025-07-09 11:01 | ECG_ITS ---
[facility] Date: 2025-07-09 Pat Name: Manas Puente Department: Room: Gender: Male Project Leader: : 1955 Requested By: Cami Toscano Order Number: [id number] Julieta MD: Woodrow De Santiago M.D. Measurements Intervals [place] Rate: 70 P: 54 ID: [id number] QRS: 48 QRSD: 92 T: 44 QT: 359 QTc: 389 Interpretive Statements SINUS RHYTHM Compared to ECG 03/28/2024 10:25:34 T-wave abnormality no longer present Electronically Signed On 07-10-2025 22:42:32 CDT by Woodrow De Santiago M.D. [email or web address] [id number]
--- NOTE | 2025-07-09 11:05 | W.ED.CHESTPA ---
HPI - Chest Pain General: Chief Complaint: Chest Pain Stated Complaint: Heart issues Time Seen by Provider: 07/09/25 10:54 History of Present Illness: 69-year-old man with a history of coronary artery disease status post stents, bladder cancer status post surgical intervention (TURBT) and urostomy, hypertension, hypothyroidism, hyperlipidemia who presents emergency room with chest pressure. He says he is been having episodes of this over the last couple of weeks. He had woke up 1 night and felt like there was something on his chest and that resolved. He had pain again today and says it feels somewhat like whenever he had to have stents before and so he finally came to the emergency room. No fevers. No lower extremity swelling. He has been having some dizziness. Intermittently. Palpitations intermittently. Numbness and tingling in the bilateral extremities. Fatigue. Shortness of breath. He says his blood pressure been a little bit low recently so he stopped his blood pressure medication. Has been normal since. He is bit hypertensive on presentation but he says that he has whitecoat syndrome. Related Data Home Medications ?Medication ?Instructions ?Recorded ?Confirmed finasteride 5 mg tablet 5 mg PO DAILY 03/06/24 07/01/25 levothyroxine 50 mcg capsule 50 mcg PO DAILY 03/06/24 07/01/25 tamsulosin 0.4 mg capsule 0.4 mg PO DAILY 03/06/24 07/01/25 trazodone 100 mg tablet 100 mg PO DAILY 03/06/24 07/01/25 calcium carbonate 500 mg PO DAILY 07/09/25 magnesium glycinate 100 mg (as 100 mg PO DAILY 07/09/25 glycinate) tablet omega 1-jty-obn-fish oil 300 1 cap PO DAILY 07/09/25 mg-1,000 mg capsule (Fish Oil) Previous Rx's ?Medication ?Instructions ?Recorded aspirin 81 mg tablet,delayed 81 mg PO DAILY #30 tabs 03/06/24 release (Adult Low Dose Aspirin) clopidogrel 75 mg tablet See Rx Instructions .Route 03/03/25 .COMPLEX #90 tabs Allergies Allergy/AdvReac Type Severity Reaction Status Date / Time codeine Allergy ADR-Nausea Verified 07/01/25 10:37 Review of Systems Narrative: Constitutional symptoms: Negative except as documented in HPI. Skin symptoms: Negative except as documented in HPI. Eye symptoms: Negative except as documented in HPI. ENMT symptoms: Negative except as documented in HPI. Respiratory symptoms: Negative except as documented in HPI. Cardiovascular symptoms: Negative except as documented in HPI. Gastrointestinal symptoms: Negative except as documented in HPI. Genitourinary symptoms: Negative except as documented in HPI. Musculoskeletal symptoms: Negative except as documented in HPI. Neurologic symptoms: Negative except as documented in HPI. Psychiatric symptoms: Negative except as documented in HPI. Endocrine symptoms: Negative except as documented in HPI. PFSH ED PFSH: Medical History (Updated 07/09/25 @ 12:03 by Cami Yusuf MD) Benign prostatic hyperplasia Hypothyroidism Coronary artery disease Hypertension Bladder cancer Dyslipidemia (high LDL; low HDL) Surgical History History of transurethral resection of bladder tumor (TURBT) (05/21/24) History of coronary artery stent placement (03/27/24) Family History Mother CAD (coronary artery disease) Chronic kidney disease (CKD) Diabetes Hypertension Hyperlipidemia Stroke Father Brain tumor Sister Chronic kidney disease (CKD) Hyperlipidemia Sister Chronic kidney disease (CKD) Hyperlipidemia Other Cardiomyopathy Denies family history of Anemia Aneurysm Arrhythmia Atrial fibrillation Sudden cardiac Pulmonary embolism Social History Smoking and tobacco/nicotine status: former use of tobacco/nicotine (QUIT IN 1990) Quit status (tobacco/nicotine): has quit using Former quit date comment: He previously smoked 1 PPD. He quit in 1990. Alcohol intake: current Alcohol intake frequency: 0-2 Drinks per Day Alcohol type: beer Physical Exam Narrative: EXAM NARRATIVE: General: Alert, no acute distress. Skin: Warm, dry. Head: Normocephalic, atraumatic. Neck: Supple, trachea midline. Eye: Extraocular movements are intact. Ears, nose, mouth and throat: mucosa moist. Cardiovascular: Regular, Normal peripheral perfusion. Respiratory: Lungs are clear to auscultation, respirations are non-labored, breath sounds are equal, Symmetrical chest wall expansion. Gastrointestinal: Soft, Nontender, Non distended Musculoskeletal: Normal ROM, no deformity. Neurological: Alert and oriented, No focal neurological deficit observed. Psychiatric: Cooperative, appropriate mood & affect. Course Vital Signs: Vital signs: Vital Signs Temperature 98.6 F 07/09/25 10:51 Pulse Rate 74 07/09/25 12:10 Respiratory Rate 17 07/09/25 10:51 Blood Pressure 158/101 07/09/25 12:10 Pulse Oximetry 98 07/09/25 12:10 Oxygen Delivery Me thod Room Air 07/09/25 12:10 MDM - Chest Pain Medical Decision Making Differential diagnosis for patient with chest pain includes but is not limited to and based on the above HPI, review of systems and physical exam: Pneumonia. unstable angina. angina. Acute coronary syndrome / HI. Pulmonary embolism. Costochondritis / musculoskeletal. Pleurisy. Pericarditis. Esophageal spasm. Pancreatis. Cholecystitis. Orders placed to evaluate differential diagnosis based on the above differential, HPI and physical exam EKG: Time 1049. Rate 67. Normal sinus rhythm, No ST-T changes, no ectopy, normal NC & QRS intervals, This was reviewed and interpreted by myself the ER physician at 10:55 AM Repeat EKG: Time 1155. Rate 70. Normal sinus rhythm, No ST-T changes, no ectopy, normal NC & QRS intervals, This was reviewed and interpreted by myself the ER physician at 1200. No significant changes from EKG done previously today in the emergency room. Lab Review: Laboratory results were reviewed and interpreted by myself the emergency room physician. No leukocytosis. No anemia. No renal failure. Initial cardiac marker and proBNP are negative. I reviewed the patient's medical record. 69-year-old man with a history of coronary artery disease status post stents, bladder cancer status post surgical intervention (TURBT) and urostomy, hypertension, hypothyroidism, hyperlipidemia Reexamination: Patient remained stable. No increased work of breathing. No altered mental status. No focal motor deficits. Patient currently does not have any chest pain Consultation: I spoke with Dr. Pradhan who is on-call for cardiology. Not an official consult but he does agree the patient likely should be observed overnight and possible stress test. Consultation: I spoke with Dr. Leon who is on-call for the hospitalist service who agrees to admission. Assessment and plan: Unstable angina Coronary artery disease -I discussed the patient with the hospitalist on-call who is admitting the patient. - Discussed findings and plan with patient. Answered any questions. - All laboratory values were reviewed and interpreted personally by myself, the ER physician - All imaging was reviewed and interpreted personally by myself, the ER physician. - Evaluation and treatment of this problem were appropriate in the emergency setting Lab Data 07/09/25 11:08 07/09/25 11:08 Laboratory Results WBC 6.19 10^3/uL (3.29-11.43) 07/09/25 11:08 RBC 4.77 10^6/uL (3.85-5.65) 07/09/25 11:08 Hgb 14.70 g/dL (11.27-16.99) 07/09/25 11:08 Hct 43.4 % (37-53) 07/09/25 11:08 MCV 91.0 fl (82-101) 07/09/25 11:08 MCH 30.8 pg (27-33) 07/09/25 11:08 MCHC 33.9 g/dL (30-55) 07/09/25 11:08 RDW 12.2 % (12.1-15.1) 07/09/25 11:08 Plt Count 226 10^3/cmm (157-399) 07/09/25 11:08 MPV 10.2 fL (7.4-10.4) 07/09/25 11:08 Neut % (Auto) 65.5 % 07/09/25 11:08 Lymph % (Auto) 20.8 % 07/09/25 11:08 [place] % (Auto) 11.8 % 07/09/25 11:08 Eos % (Auto) 1.1 % 07/09/25 11:08 Baso % (Auto) 0.6 % 07/09/25 11:08 Neut # (Auto) 4.05 10^3/uL (1.8-7.7) 07/09/25 11:08 Lymph # (Auto) 1.3 10^3/uL (0.8-4.8) 07/09/25 11:08 [place] # (Auto) 0.7 10^3/uL (0.2-0.9) 07/09/25 11:08 Eos # (Auto) 0.1 10^3/uL (0.0-0.8) 07/09/25 11:08 Baso # (Auto) 0.0 10^3/uL (0.0-0.1) 07/09/25 11:08 Nucleated RBC % (auto) 0 % 07/09/25 11:08 Nucleated RBCs # 0.0 /100WBC 07/09/25 11:08 Sodium 138 mmol/L (136-145) 07/09/25 11:08 Potassium 4.3 mmol/L (3.5-5.1) 07/09/25 11:08 Chloride 100 mmol/L (98-107) 07/09/25 11:08 Carbon Dioxide 25 mmol/L (22-29) 07/09/25 11:08 Anion Gap 17.3 (5-19) 07/09/25 11:08 BUN 11 mg/dL (8-23) 07/09/25 11:08 Creatinine 0.9 mg/dL (0.7-1.2) 07/09/25 11:08 GFR Calculation 83.9 mL/min (90-130) L 07/09/25 11:08 Glucose 89 mg/dL (65-115) 07/09/25 11:08 Calculated Osmolality 285 mOsm/kg (285-295) 07/09/25 11:08 Calcium 9.6 mg/dL (8.5-10.5) 07/09/25 11:08 Total Bilirubin 0.4 mg/dL (0.15-1.2) 07/09/25 11:08 AST 31 U/L (0-40) 07/09/25 11:08 ALT 29 U/L (0-41) 07/09/25 11:08 Alkaline Phosphatase 139 U/L (40-130) H 07/09/25 11:08 Troponin T Baseline < 6 ng/L (0-15) 07/09/25 11:08 NT-Pro-B Natriuret Pep < 36 pg/mL (0-125) 07/09/25 11:08 Total Protein 6.9 g/dL (6.6-8.7) 07/09/25 11:08 Albumin 4.3 g/dL (3.5-5.2) 07/09/25 11:08 Globulin 2.6 g/dL (1.3-4.6) 07/09/25 11:08 No radiology studies performed this visit Discharge Plan Discharge Patient Disposition: Admitted As Inpatient Clinical Impression: Unstable angina pectoris, Coronary artery disease Condition: Stable Coding Level of Care Code ED [employer] Operations Intelligence Officer for Sharon Perales
[2025-07-09 11:19] LABS: Hematocrit 43.4 % (37-53); Hemoglobin 14.70 g/dL (11.27-16.99); Mean Corpuscular HGB Conc 33.9 g/dL (30-55); Mean Corpuscular Hemoglobin 30.8 pg (27-33); Mean Corpuscular Volume 91.0 fl (82-101); Nucleated Red Blood Cells % 0 %; Platelet Count 226 10^3/cmm (157-399); Red Blood Count 4.77 10^6/uL (3.85-5.65); White Blood Count 6.19 10^3/uL (3.29-11.43)
[2025-07-09 11:39] LABS: Troponin(5th) Baseline < 6 ng/L (0-15)
[2025-07-09 11:49] LABS: Alanine Aminotransferase 29 U/L (0-41); Albumin Level 4.3 g/dL (3.5-5.2); Alkaline Phosphatase 139 U/L (40-130); Anion Gap 17.3 (5-19); Aspartate Amino Transferase 31 U/L (0-40); Blood Urea Nitrogen 11 mg/dL (8-23); Calcium 9.6 mg/dL (8.5-10.5); Carbon Dioxide 25 mmol/L (22-29); Chloride 100 mmol/L (98-107); Creatinine Clr Calc Pharmacy 82.8587; Globulin 2.6 g/dL (1.3-4.6); Glucose 89 mg/dL (65-115); NT Pro B Type Natriuretic Pept < 36 pg/mL (0-125); Osmolality Calculated 285 mOsm/kg (285-295); Potassium 4.3 mmol/L (3.5-5.1); Sodium 138 mmol/L (136-145); Total Protein 6.9 g/dL (6.6-8.7)
--- NOTE | 2025-07-09 13:07 | PM.CONSULT ---
Providers/Reason For Consult Consulting Physician/Specialty*: Dr Odonnell, interventional cardiology Reason for Consult*: chest pain Requesting Physician: Dr Yusuf Primary Care Provider: Ciriol Harrell DO History of Present Illness History of Present Illness Manas Puente is a 69 year old male with past medical history of bladder cancer, s/p chemotherapy, hypertension, CAD (03/27/2024 RCA atherectomy, intravascular lithotripsy, stent to the proximal to mid RCA, balloon angioplasty distal RCA, mild to moderate disease of the proximal LAD, 1st and 2nd diagonal arteries). He presented to the emergency room today due to chest pain-he states it is not pain but pressure. He has been noting fatigue for the last year and worsening shortness of breath with exertion for several months, for the last 3 weeks he has been having intermittent chest pressure, sometimes waking him up from sleep at night, lasting approximately 5 to 10 minutes for each episode, symptoms with a fluttering heart. Since he had the surgery for bladder cancer and urostomy creation, he notes not sleeping well, waking up several times at night completely tense all over his body, trying to force himself to relax. He has had intermittent night sweats as well. No recent lower extremity edema or weight gain, no abdominal distention. In fact he has lost some weight. 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 Most recent limited echocardiogram in August of last year showed LVEF 62%. EKG so far it showed sinus rhythm, heart rate [address] or T wave abnormalities. Baseline troponin less than 6, BNP less than 36. Review of Systems Const: Reports: change in weight (Weight loss); Denies: fever(s), chills, fatigue or diaphoresis Eyes: Denies: change in vision ENMT: Denies: epistaxis Card: Reports: chest pain, palpitations and dyspnea on exertion; Denies: irregular heart rhythm, edema, syncope, pre-syncope, orthopnea or leg pain with exertion Resp: Reports: chest congestion (morning phlegm); Denies: dyspnea, productive cough or wheezing GI: Denies: nausea, vomiting, hematemesis, hematochezia or melena : Denies: hematuria Musc: Denies: extremity swelling David/Lymph: Denies: easy bruising or easy bleeding Medications/Allergies Home Medications ?Medication ?Instructions ?Recorded ?Confirmed ?Last Taken ?Type levothyroxine 50 mcg capsule 50 mcg PO DAILY 03/06/24 07/09/25 06/22/24 History trazodone 100 mg tablet 100 mg PO QPM 03/06/24 07/09/25 07/08/25 History aspirin 81 mg tablet,delayed 81 mg PO QPM 07/09/25 07/09/25 07/08/25 History release (Adult Low Dose Aspirin) atorvastatin 40 mg tablet 40 mg PO QPM 07/09/25 07/09/25 07/08/25 History clopidogrel 75 mg tablet 75 mg PO QPM 07/09/25 07/09/25 07/08/25 History magnesium glycinate 100 mg (as 100 mg PO QAM 07/09/25 07/09/25 07/09/25 History glycinate) tablet metoprolol succinate 25 mg 25 mg PO QPM 07/09/25 07/09/25 07/08/25 History tablet,extended release 24 hr omega 1-vaq-jhb-fish oil 300 1 cap PO QAM 07/09/25 07/09/25 07/09/25 History mg-1,000 mg capsule (Fish Oil) tramadol 50 mg tablet 50 mg PO TID PRN Pain 07/09/25 07/09/25 Unknown History Allergies Allergy/AdvReac Type Severity Reaction Status Date / Time codeine Allergy ADR-Nausea Verified 07/01/25 10:37 PFSH Acute PFSH: Medical History Benign prostatic hyperplasia Hypothyroidism Coronary artery disease Hypertension Bladder cancer Dyslipidemia (high LDL; low HDL) Surgical History History of transurethral resection of bladder tumor (TURBT) (05/21/24) History of coronary artery stent placement (03/27/24) Family History Mother CAD (coronary artery disease) Chronic kidney disease (CKD) Diabetes Hypertension Hyperlipidemia Stroke Father Brain tumor Sister Chronic kidney disease (CKD) Hyperlipidemia Sister Chronic kidney disease (CKD) Hyperlipidemia Other Cardiomyopathy Denies family history of Anemia Aneurysm Arrhythmia Atrial fibrillation Sudden cardiac Pulmonary embolism Social History Smoking and tobacco/nicotine status: former use of tobacco/nicotine (QUIT IN 1990) Quit status (tobacco/nicotine): has quit using Former quit date comment: He previously smoked 1 PPD. He quit in 1990. Alcohol intake: current Alcohol intake frequency: 0-2 Drinks per Day Alcohol type: beer Vitals/I&O/Wt Last Vital Signs Temp 98.6 F 07/09/25 10:51 Pulse 74 07/09/25 12:10 Resp 17 07/09/25 10:51 BP 158/101 07/09/25 12:10 Pulse Ox 98 07/09/25 12:10 O2 Del Method Room Air 07/09/25 12:10 Weight last 48 hrs Weight 162 lb Physical Exam Const: COMMON NORMALS: no acute distress and patient oriented x3 GENERAL APPEARANCE: cooperative and comfortable ORIENTATION/CONSCIOUSNESS: Yes awake, Yes oriented to person, Yes oriented to place and Yes oriented to time Chest: COMMONS NORMALS: normal inspection of the chest and normal palpation of entire chest wall CHEST: Yes Symmetrical chest wall rise Resp: COMMON NORMALS: normal respiratory effort, No retractions and No use of accessory muscles EFFORT & INSPECTION: Yes symmetric chest movement AUSCULTATION: crackles Laterality: left and posterior Cardio: COMMON NORMALS: regular rate, regular rhythm, S1 normal heart sound present, S2 normal heart sound present, No gallops present (Cardio), No clicks present (Cardio), No murmurs present (Cardio) and No rub (Cardio) RATE: regular rate RHYTHM: regular rhythm HEART SOUNDS: S1 normal heart sound present and S2 normal heart sound present PERIPHERAL PULSES: radial pulses present Extremity: COMMON NORMALS: no pedal edema Neuro: COMMON NORMALS: patient oriented x3 and moves all extremities SENSORIUM/ORIENTATION: Yes oriented to person, Yes oriented to place and Yes oriented to time Data 07/09/25 11:08 07/09/25 11:08 A&P Assessment and plan 1. Chest pain: 2. Coronary artery disease: 3. Dyslipidemia (high LDL; low HDL): 4. Benign essential HTN: Plan: He has typical angina symptoms, worsening over the last several months. Given the moderate disease in the left system, and extensive RCA disease with IVL and atherectomy last year, he requires further workup. Continue to trend troponin, EKG. He is chest pain-free currently. He appears euvolemic and blood pressure is slightly elevated, as he is anxious about being here. Recently blood pressure has been low and he has held metoprolol succinate. Will start losartan 25 mg daily for blood pressure control. Will start therapeutic Lovenox, and plan for stress test in the morning, unless there is troponin elevation then we will proceed straight to coronary angiogram. PDMP PDMP Reviewed: Not Reviewed Coding Level of Care Code Acute Code for Chg Fwd Diagnoses Chest pain R07.9 Coronary artery disease I25.10 Dyslipidemia (high LDL; low HDL) E78.5 Benign essential HTN I10
--- NOTE | 2025-07-09 13:15 | USCV_ITS ---
Manas Puente Age: 69 Gender: M : 1955 Exam Date: 07/09/2025 14:20 Ordering Phys: Melissa Ferguson Technologist: Ex[place] [facility] [place]: Unstable Angina BP: 144 / 96 HR: 73 Rhythm: Sinus Technical Quality: Adequate MEASUREMENTS (Male / Female) Normal Values 2D ECHO LV Diastolic Diameter PLAX 4.5 cm 4.2 - 5.9 / 3.9 - 5.3 cm IVS Diastolic Thickness 1.3 cm 0.6 - 1.0 / 0.6 - 0.9 cm IVS Systolic Thickness 1.5 cm LVPW Diastolic Thickness 1.3 cm 0.6 - 1.0 / 0.6 - 0.9 cm LVPW Systolic Thickness 1.6 cm LVOT Diameter 2.0 cm LV Ejection Fraction 2D Teich 66.0 % LV Ejection Fraction MOD 4C 64.4 % LV Ejection Fraction MOD 2C 65.6 % LV Ejection Fraction 2C AL 65.9 % LA Diameter 2.9 cm RA Systolic Volume 4C AL 36.8 ml RA Systolic Volume 4C MOD 36.0 ml LA Sys Volume AL 40.9 cm cubed LA Sys Volume Index AL 21.1 cm cubed/m squared Aorta at Sinotubular Diameter 2.9 cm M-MODE LA Ao Ratio MM 1.1 AV Cusp Separation MM 2.0 cm DOPPLER AV Peak Velocity 125.0 cm/s LVOT Peak Velocity 84.0 cm/s AV Area Cont Eq vti 2.7 cm squared AV Area Cont Eq pk 2.1 cm squared MV Peak Velocity 78.0 cm/s MV Area PHT 4.2 cm squared TV Peak Velocity 155.0 cm/s TR Peak Velocity 215.0 cm/s TR Peak Gradient 18.5 mmHg TV Peak E Velocity 52.0 cm/s PV Peak Velocity 68.0 cm/s FINDINGS Left Ventricle Normal left ventricular cavity size. Hypokinesis of the basal inferior wall segment. Overall normal ejection fraction of 64%. Mild left ventricular hypertrophy. Normal diastolic function. Right Ventricle Normal right ventricular size and systolic function. Normal right ventricular systolic pressure. Right Atrium Normal right atrial size. Left Atrium Normal left atrial size. Mitral Valve Mild mitral valve regurgitation. No mitral valve stenosis. Aortic Valve Mild aortic valve calcification. No aortic valve stenosis. No aortic valve regurgitation. Tricuspid Valve Trace tricuspid valve regurgitation. Pulmonic Valve Trace pulmonary valve regurgitation. Pericardium No pericardial effusion. Aorta Normal aortic root size. IVC Normal inferior vena cava. CONCLUSIONS 1. Globally normal left ventricular systolic function. There is severe hypokinesis however in the basal inferior wall. Ejection fraction is 64%. 2. Normal right ventricular size and systolic function 3. Mild mitral valve regurgitation Rigo Gutierrez MD, FACC (Electronically Signed) Final Date: 10 July 2025 14:09 S
[2025-07-09 13:54] LABS: Troponin 5 2HR 6.14 ng/L (0-15); Troponin 5 2HR Delta 0.14001 ABS# (0-10)
--- NOTE | 2025-07-09 13:55 | ECG_ITS ---
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 Interpretive Statements Procedure: A total of 0.4 mg of Lexiscan was infused over 20 seconds. The stress phase was continued for a total of 5 minutes. Sestamibi was injected 20 seconds after the Lexiscan infusion. Vital signs and ECG findings: The resting EKG showed normal sinus rhythm and possible old septal infarction. The stress EKG showed no ST-T wave abnormalities The baseline blood pressure was 149/83 with a heart rate of 65. After Lexiscan injection, patient's blood pressure dipped down to 129/77 with a heart heart rate of 88 bpm. In recovery the blood pressure was 156/88 with a heart rate of 87 bpm. Conclusion: 1. Normal EKG response to Lexiscan infusion 2. No Lexiscan induced chest pain or cardiac arrhythmia. 3. Normal blood pressure and heart rate response. 4. Nuclear myocardial perfusion scan pending; see separate report. Electronically Signed On 07-10-2025 14:55:26 CDT by Rigo Gutierrez M.D. [id number]
--- NOTE | 2025-07-09 16:19 | PM.HP ---
Providers/Chief Complaint Admitting Physician: Malaika Leon MD Primary Care Provider: Cirilo Harrell DO Chief Complaint: Heart issues History of Present Illness History as per the retrospective notes and the patient : Manas Puente is a 69 year old male past medical history of bladder cancer, s/p chemotherapy, hypertension, CAD (03/27/2024 RCA atherectomy, intravascular lithotripsy, stent to the proximal to mid RCA, balloon angioplasty distal RCA, mild to moderate disease of the proximal LAD, 1st and 2nd diagonal arteries). He presented to the emergency room today due to chest pain-he states it is not pain but pressure. Consider patient having history of stent admitted for further workup for any ACS. the pt reported having intermittent episodes of chest pressure since 2-3 weeks and not getting better. sometimes at rest, even at night but not very typical association with exertion. no sob, diaphoresis, nausea or vomiting or any recent lower leg swellings. no viral infections or flu like illnesses. no h/o drug abuse, excessive alcohol intake or active smoking. no orthopnea or PND. Review of Systems General: Reports: 10 or more systems reviewed and unremarkable except in HPI and below Medications/Allergies Home Medications ?Medication ?Instructions ?Recorded ?Confirmed ?Last Taken ?Type levothyroxine 50 mcg capsule 50 mcg PO DAILY 03/06/24 07/09/25 06/22/24 History trazodone 100 mg tablet 100 mg PO QPM 03/06/24 07/09/25 07/08/25 History aspirin 81 mg tablet,delayed 81 mg PO QPM 07/09/25 07/09/25 07/08/25 History release (Adult Low Dose Aspirin) atorvastatin 40 mg tablet 40 mg PO QPM 07/09/25 07/09/25 07/08/25 History clopidogrel 75 mg tablet 75 mg PO QPM 07/09/25 07/09/25 07/08/25 History magnesium glycinate 100 mg (as 100 mg PO QAM 07/09/25 07/09/25 07/09/25 History glycinate) tablet metoprolol succinate 25 mg 25 mg PO QPM 07/09/25 07/09/25 07/08/25 History tablet,extended release 24 hr omega 4-bdd-pxe-fish oil 300 1 cap PO QAM 07/09/25 07/09/25 07/09/25 History mg-1,000 mg capsule (Fish Oil) tramadol 50 mg tablet 50 mg PO TID PRN Pain 07/09/25 07/09/25 Unknown History Allergies Allergy/AdvReac Type Severity Reaction Status Date / Time codeine Allergy ADR-Nausea Verified 07/01/25 10:37 PFSH Acute PFSH: Medical History (Updated 07/09/25 @ 20:03 by Christelle Pradhan MD) Benign prostatic hyperplasia Hypothyroidism Coronary artery disease Hypertension Bladder cancer Dyslipidemia (high LDL; low HDL) Surgical History History of transurethral resection of bladder tumor (TURBT) (05/21/24) History of coronary artery stent placement (03/27/24) Family History Mother CAD (coronary artery disease) Chronic kidney disease (CKD) Diabetes Hypertension Hyperlipidemia Stroke Father Brain tumor Sister Chronic kidney disease (CKD) Hyperlipidemia Sister Chronic kidney disease (CKD) Hyperlipidemia Other Cardiomyopathy Denies family history of Anemia Aneurysm Arrhythmia Atrial fibrillation Sudden cardiac Pulmonary embolism Social History Smoking and tobacco/nicotine status: former use of tobacco/nicotine (QUIT IN 1990) Quit status (tobacco/nicotine): has quit using Former quit date comment: He previously smoked 1 PPD. He quit in 1990. Alcohol intake: current Alcohol intake frequency: 0-2 Drinks per Day Alcohol type: beer Vitals/I&O/Wt Last Vital Signs Temp 98.6 F 07/09/25 10:51 Pulse 75 07/09/25 14:03 Resp 17 07/09/25 10:51 BP 155/96 07/09/25 15:10 Pulse Ox 96 07/09/25 14:03 O2 Del Method Room Air 07/09/25 14:03 Weight last 48 hrs Weight 73.482 kg Physical Exam Narrative: General: Alert oriented x3, patient seen sitting comfortably on chair without any oxygen supplementation HEENT: Normocephalic, atraumatic, EOMI, breathing at room air Cardio: Regular rate rhythm, normal S1-S2, no murmurs rubs gallops, JVD normal Respiratory: Good bilateral air entry, no wheezes no rhonchi appreciated GI: Abdomen soft, nontender, nondistended, normoactive bowel sounds present all 4 quadrants, having urinary diversion at the right para-umblical area and urinary drainage bag attached. Neuro: Cranial nerves II to XII intact, strength 5/5, sensation 5/5, no gross neurological deficit Behavior: Appropriate and cooperative Extremities: trace pedal edema, good volume pulses Skin: Visible skin intact, no rashes Data 07/09/25 11:08 07/09/25 11:08 A&P Assessment and plan 1. Coronary artery disease: 2. Unstable angina pectoris: 3. Trigger finger, right ring finger: 4. Dyslipidemia (high LDL; low HDL): 5. Pulmonary arterial hypertension: 6. Benign essential HTN: Plan: - r/o ACS considering patient having h/o cardiac stenting: cardiology onboard Trop and serial EKGs cardiac stress test as per cardio to start losartan 25 mg daily for blood pressure control and the pt had held BB since his BP was recently going in the lower range. therapeutic Lovenox wt based bid dosing, cardiac stress test unless there is troponin elevation then we will proceed straight to coronary angiogram. monitor vitals continue with aspirin, clopidogrel and atorvastatin ( home medications ) Hypothyroidism: cont levothyroxine 50mcg daily Anxiety/insomnia: continue trazodone home dose DVT: full dose AC with levonox Diet: cardiac diet, hold any caffeinated sodas or any drinks before the stress test PDMP PDMP Reviewed: Not Reviewed Attestations Medical Necessity Statement*: The patient will stay less than 2 midnights for the management of chest pain and to rule out ACS. Based upon the patient's stress test and cardiology recommendation to manage further Time Spent in Patient Care: 16 - 35 minutes (>than 50% of time spent in counselling and/or direct pt care on unit). Other Attestations: Patient condition has been discussed at length with the patient/family, I have independently reviewed the chart labs imaging and diagnostics and EKG. the goals of care and code status with the patient/family/NOK/legal player services representative, and documented accordingly. The patient/family has been informed about the current condition and further plan of care. Agreed with the plan of care and understood without any language barrier. This documentation was created by [employer] toll line inspector software. Every effort was made to ensure accuracy of toll line inspector. Any obvious errors or omissions should be clarified with the author of the document. Coding Level of Care Code 81295 Diagnoses Coronary artery disease I25.10 Unstable angina pectoris I20.0 Trigger finger, right ring finger M65.341 Dyslipidemia (high LDL; low HDL) E78.5 Pulmonary arterial hypertension I27.21 Benign essential HTN I10
[2025-07-09 17:01] LABS: Magnesium 2.0 mg/dL (1.7-2.3); Thyroid Stimulating Hormone 3.88 uIU/mL (0.27-4.20)
--- NOTE | 2025-07-09 17:01 | ECG_ITS ---
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 Measurements Intervals [place] Rate: 75 P: 45 [place]: 144 QRS: 53 QRSD: 92 T: 52 QT: 366 QTc: 410 Interpretive Statements SINUS RHYTHM Compared to ECG 07/09/2025 11:55:20 No significant changes Electronically Signed On 07-10-2025 22:52:25 CDT by Woodrow De Santiago M.D. [email or web address] [id number]
[2025-07-09] MEDS: metoprolol succinate ER (24 HR) 25 mg Tablet PO (17:24)
--- NOTE | 2025-07-09 17:24 | PC.NURSE ---
Patient refused 1800 Pepcid and Lovenox.
[2025-07-09 18:32] LABS: Troponin 5 6HR 6.51 ng/L (0-15); Troponin 5 6HR Delta 0.51001 ng/L (0-12)
--- NOTE | 2025-07-09 23:18 | ECG_ITS ---
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 Measurements Intervals [place] Rate: 61 P: -2 [place]: 176 QRS: -2 QRSD: 93 T: -7 QT: 398 QTc: 403 Interpretive Statements SINUS RHYTHM Compared to ECG 07/09/2025 18:40:25 No significant changes Electronically Signed On 07-10-2025 22:39:59 CDT by Woodrow De Santiago M.D. [id number] [id number]
[2025-07-10] VITALS (7 sets, daily range): BP systolic 118–156; BP diastolic 70–91; PULSE 57–86; RESP 16; TEMP 36.4–36.9; O2SAT 97–98
[2025-07-10 00:54] LABS: Troponin(5th) Baseline < 6 ng/L (0-15)
--- NOTE | 2025-07-10 03:20 | ECG_ITS ---
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 Measurements Intervals [place] Rate: 57 P: 59 [place]: 177 QRS: 57 QRSD: 94 T: 62 QT: 400 QTc: 392 Interpretive Statements SINUS BRADYCARDIA Compared to ECG 07/10/2025 01:54:17 Sinus rhythm no longer present Electronically Signed On 07-10-2025 22:51:40 CDT by Woodrow De Santiago M.D. [id number] [id number]
[2025-07-10 04:16] LABS: Hematocrit 41.3 % (37-53); Hemoglobin 13.50 g/dL (11.27-16.99); Mean Corpuscular HGB Conc 32.7 g/dL (30-55); Mean Corpuscular Hemoglobin 30.1 pg (27-33); Mean Corpuscular Volume 92.2 fl (82-101); Nucleated Red Blood Cells % 0 %; Platelet Count 230 10^3/cmm (157-399); Red Blood Count 4.48 10^6/uL (3.85-5.65); White Blood Count 4.47 10^3/uL (3.29-11.43)
[2025-07-10 04:38] LABS: Troponin 5 2HR 6.54 ng/L (0-15); Troponin 5 2HR Delta 0.54001 ABS# (0-10)
[2025-07-10 04:45] LABS: Alanine Aminotransferase 25 U/L (0-41); Albumin Level 4.0 g/dL (3.5-5.2); Alkaline Phosphatase 122 U/L (40-130); Anion Gap 15.9 (5-19); Aspartate Amino Transferase 27 U/L (0-40); Blood Urea Nitrogen 14 mg/dL (8-23); Calcium 9.5 mg/dL (8.5-10.5); Carbon Dioxide 26 mmol/L (22-29); Chloride 104 mmol/L (98-107); Creatinine Clr Calc Pharmacy 74.5728; Globulin 2.3 g/dL (1.3-4.6); Glucose 92 mg/dL (65-115); Osmolality Calculated 292 mOsm/kg (285-295); Potassium 4.9 mmol/L (3.5-5.1); Sodium 141 mmol/L (136-145); Total Protein 6.3 g/dL (6.6-8.7)
--- NOTE | 2025-07-10 05:11 | ECG_ITS ---
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 Measurements Intervals [place] Rate: 69 P: 64 [place]: 168 QRS: 58 QRSD: 93 T: 67 QT: 385 QTc: 415 Interpretive Statements SINUS RHYTHM Compared to ECG 07/10/2025 03:20:59 Sinus bradycardia no longer present Electronically Signed On 07-10-2025 22:51:32 CDT by Woodrow De Santiago M.D. [email or web address] [id number]
[2025-07-10 06:57] LABS: Troponin 5 6HR 6.51 ng/L (0-15); Troponin 5 6HR Delta 0.51001 ng/L (0-12)
--- NOTE | 2025-07-10 10:03 | PC.CHAP ---
Pastoral Care Encounter/Spiritual Assessment Type of Contact [] Declined football scout visit [] Patient/Family/Request visit [] Outpatient visit [] Follow-up visit [] Physician referral [] Code/Alert [] Routine visit [] Staff referral [] Actively dying [] Patient sleeping [] Family support [] [x] Out of room [] Palliative care [] [] Receiving care in room [] Pre-surgical visit [] Trauma [] Long length of stay [] ICU visit [] Other: Relational/Emotional Strength [] Patient feels connected with others/family/visitors/staff [] Distress [] Loneliness/isolation [] Abandonment Spirituality of Patient [] Person of Ysabel [] Attends Yazidism of their Ysabel [] Believes in Prayer [] Reads Bible or Scientology materials [] There are Spiritual issues to be addressed Steward/Stewardess Dining Room Interventions [] Prayer [] Active listening [] Non-anxious presence [] Spiritual/emotional support [] Crisis/trauma care [] Spiritual counseling [] Bereavement support [] Provided bereavement packet [] Provided Bible/devotional materials [] Provided toy/stuffed animal, coloring book to patient or family member [] Provided Communion [] Anointing/[place] [] Salvation [] Completed spiritual assessment [] Other: Impact on Illness or Injury [] Angry [] Fearful [] Anxious [] Often cries [] Exhaustion [] Unable to work [] Unable to attend presybeterian [] Unable to walk/stand [] Unable to read [] Unable to drive [] Unable to eat/drink [] Unable to sleep [] Unable to be with family [] Patient intubated [] Other: Summary Time spent with patient
--- NOTE | 2025-07-10 10:24 | P.PN_ITS ---
<Statement entered by Christelle Pradhan MD - 07/10/25 18:55> Patient was evaluated and cared for in conjunction with an advanced practice practitioner. I personally examined the patient and reviewed the chart and all pertinent data including imaging, telemetry, and laboratory results. I discussed the patient in detail with the advanced practice practitioner. Please see their note for complete H&P testing result and agreed upon plan of care for the patient. Patient remained chest pain-free Stress test turned out to be negative GENERAL: Patient is alert, awake and oriented x3. HEART: Regular S1 and S2. No murmur, rub or gallop. LUNGS: Clear to auscultate bilaterally. CENTRAL NERVOUS SYSTEM: Grossly nonfocal. EXTREMITIES: Lower extremities with out edema bilaterally. Assessment and plan Chest pain CAD Hypertension Stress test is negative, add isosorbide mononitrate, patient can be discharged home. Advised to follow-up with us as an outpatient. Advised in case of worsening of shortness of breath chest pain or symptoms return back to ER. Subjective 2 Subjective: No chest pain while at rest overnight however he had a stress test this morning and chest pain was elicited. Vitals/I&O/Wt Last Vital Signs Temp 98.4 F 07/10/25 04:00 Pulse 86 07/10/25 08:16 Resp 16 07/10/25 07:45 BP 156/88 07/10/25 09:57 Pulse Ox 98 07/10/25 07:45 O2 Del Method Room Air 07/10/25 07:45 Weight last 48 hrs Weight 162 lb Weight 162 lb Weight 162 lb Physical Exam 2 Const: COMMON NORMALS: no acute distress and patient oriented x3 GENERAL APPEARANCE: cooperative and comfortable ORIENTATION/CONSCIOUSNESS: Yes awake, Yes oriented to person, Yes oriented to place and Yes oriented to time Chest: COMMONS NORMALS: normal inspection of the chest and normal palpation of entire chest wall CHEST: Yes Symmetrical chest wall rise Resp: COMMON NORMALS: normal respiratory effort, No retractions, No use of accessory muscles and clear to auscultation bilaterally EFFORT & INSPECTION: Yes symmetric chest movement AUSCULTATION: clear to auscultation bilaterally Cardio: COMMON NORMALS: regular rate, regular rhythm, S1 normal heart sound present, S2 normal heart sound present, No gallops present (Cardio), No clicks present (Cardio), No murmurs present (Cardio) and No rub (Cardio) RATE: r egular rate RHYTHM: regular rhythm HEART SOUNDS: S1 normal heart sound present and S2 normal heart sound present PERIPHERAL PULSES: radial pulses present Extremity: COMMON NORMALS: no pedal edema Neuro: COMMON NORMALS: patient oriented x3 and moves all extremities S ENSORIUM/ORIENTATION: Yes oriented to person, Yes oriented to place and Yes oriented to time Data 07/10/25 03:00 07/10/25 03:00 A&P Assessment and plan 1. Coronary artery disease: 2. Chest pain: 3. Benign essential HTN: 4. Dyslipidemia (high LDL; low HDL): Plan: Will await results of Lexiscan stress test. Tentatively planning for coronary angiogram on Sunday, given significant history and known moderate disease in 3 other vessels. Continue therapeutic Lovenox, aspirin, Plavix, losartan, statin. He can have a soda now, requested that he not eat a meal until stress test results are received. PDMP PDMP Reviewed: Not Reviewed Attestations 2 Medical Necessity Statement*: Ischemic workup for chest pain Coding Level of Care Code Acute Code for [facility] Diagnoses Coronary artery disease I25.10 Chest pain R07.9 Benign essential HTN I10 Dyslipidemia (high LDL; low HDL) E78.5
--- NOTE | 2025-07-10 13:50 | PM.PN ---
Subjective Subjective: No chest pain while at rest overnight however he had a stress test this morning and chest pain was elicited, the patient is stable and no acute concerns but on and off voiced about his chest pressure that comes intermittently no nausea or any vomiting Vitals/I&O/Wt Last Vital Signs Temp 97.5 F L 07/10/25 11:24 Pulse 78 07/10/25 11:24 Resp 16 07/10/25 11:24 BP 143/91 07/10/25 11:24 Pulse Ox 97 07/10/25 11:24 O2 Del Method Room Air 07/10/25 11:24 Weight last 48 hrs Weight 73.482 kg Weight 73.482 kg Weight 73.482 kg Physical Exam Narrative: General: Alert oriented x3, patient seen sitting comfortably on chair without any oxygen supplementation HEENT: Normocephalic, atraumatic, EOMI, breathing at room air Cardio: Regular rate rhythm, normal S1-S2, no murmurs rubs gallops, JVD normal Respiratory: Good bilateral air entry, no wheezes no rhonchi appreciated GI: Abdomen soft, nontender, nondistended, normoactive bowel sounds present all 4 quadrants, having urinary diversion at the right para-umblical area and urinary drainage bag attached. Neuro: Cranial nerves II to XII intact, strength 5/5, sensation 5/5, no gross neurological deficit Behavior: Appropriate and cooperative Extremities: trace pedal edema, good volume pulses Skin: Visible skin intact, no rashes Data 07/10/25 03:00 07/10/25 03:00 A&P Assessment and plan 1. Coronary artery disease: 2. Unstable angina pectoris: 3. Trigger finger, right ring finger: 4. Dyslipidemia (high LDL; low HDL): 5. Pulmonary arterial hypertension: 6. Benign essential HTN: Plan: - r/o ACS considering patient having h/o cardiac stenting: cardiology onboard Trop and serial EKGs were not revealing yet for any acute IL or ACS, but had chest pressure during her stress test cardiac stress test to follow the final reports as per cardio, losartan 25 mg daily for blood pressure control and the pt had held BB since his BP was recently going in the lower range. therapeutic Lovenox wt based bid dosing, likey for cath angio tomorrow morning, and will follow further updates with cardio since the clinical lab assistant is down and awaited on re-institution of it monitor vitals continue with aspirin, clopidogrel and atorvastatin ( home medications ) Hypothyroidism: cont levothyroxine 50mcg daily Anxiety/insomnia: continue trazodone home dose DVT: full dose AC with levonox Diet: cardiac diet PDMP PDMP Reviewed: Not Reviewed Attestations Medical Necessity Statement*: The patient will stay less than 2 midnight for possible catheter tomorrow and further cardiology plan afterwards according to the results Time Spent in Patient Care: 16 - 35 minutes (>than 50% of time spent in counselling and/or direct pt care on unit). Other Attestations: Patient condition has been discussed at length with the patient/family, I have independently reviewed the chart labs imaging and diagnostics and EKG. the goals of care and code status with the patient/family/NOK/legal automobile sales representative, and documented accordingly. The patient/family has been informed about the current condition and further plan of care. Agreed with the plan of care and understood without any language barrier. This documentation was created by [employer] process engineering technician software. Every effort was made to ensure accuracy of process engineering technician. Any obvious errors or omissions should be clarified with the author of the document. Coding Level of Care Code 32461 Diagnoses Coronary artery disease I25.10 Unstable angina pectoris I20.0 Trigger finger, right ring finger M65.341 Dyslipidemia (high LDL; low HDL) E78.5 Pulmonary arterial hypertension I27.21 Benign essential HTN I10
--- NOTE | 2025-07-10 13:55 | NMCV_ITS ---
NM sondra perf SPECT r/s* [id number] Manas Puente Age: 69 Gender: M : 1955 Exam Date: 07/10/2025 07:34 Ordering Phys: Melissa Ferguson Technologist: LEROY Valles Exam Location: [facility] Indications: CP STRESS TEST Please see separate stress test report in [facility] for full findings IMAGE PROTOCOL Rest/Stress 1 Lexiscan Day Radiopharmaceutical Dose (mCi) Administration Site Administered by Rest: Tc-99m 10.7 IV Mily Madden, PER DIEM CLERK Sestamibi Stress:Tc-99m 32.9 IV Mily Choudharygle, PER DIEM CLERK Sestamibi Rest: 10-Jul-2025 60 Discovery 630 Stress: 10-Jul-2025 30 Discovery 630 0.4mg Lexiscan. Images obtained in supine and prone position. SPECT RESULTS Technical Quality: Good Raw Data Analysis: Normal Image Corrections: No attenuation or motion correction applied Summed Stress Score: 0 Summed Rest Score: 0 Summed Difference Score: 0 PERFUSION FINDINGS There is a small to medium sized area of moderate reduction in tracer counts in the mid to basal inferior and inferoseptal wall regions. This is a fixed defect consistent with possible past myocardial infarction versus attenuation artifact. FUNCTIONAL RESULTS (calculated via Gated SPECT) Stress Image LV EF (%): 56 Stress EDV (mL):103 TID: 1.11 Stress ESV (mL):45 FUNCTIONAL FINDINGS: Normal left ventricular cavity size and wall motion. Ejection fraction 56%. IMPRESSIONS 1. Mild to medium sized area of nontransmural infarction versus attenuation artifact in the mid to basal inferior and inferoseptal wall region. No ischemia. 2. Normal left ventricular cavity size and wall motion. Ejection fraction 56%. Rigo Gutierrez MD, FACC (Electronically Signed) Final Date: 10 July 2025 13:56 S
--- NOTE | 2025-07-10 14:48 | P.DS_ITS ---
Discharge Providers Date of Admission: 07/09/25 14:39 Date of Discharge: July 10, 2025 Attending Provider at Admission: Malaika Leon MD Attending Provider at Discharge: Malaika Leon MD Primary Care Provider: Cirilo Harrell DO Diagnoses at Discharge Discharge Diagnosis 1. Coronary artery disease: 2. Unstable angina pectoris: 3. Trigger finger, right ring finger: 4. Dyslipidemia (high LDL; low HDL): 5. Pulmonary arterial hypertension: 6. Benign essential HTN: Reason for Visit Reason for Visit: Heart issues Brief History: History as per the retrospective notes and the patient : Manas Puente is a 69 year old male past medical history of bladder cancer, s/p chemotherapy, hypertension, CAD (03/27/2024 RCA atherectomy, intravascular lithotripsy, stent to the proximal to mid RCA, balloon angioplasty distal RCA, mild to moderate disease of the proximal LAD, 1st and 2nd diagonal arteries). He presented to the emergency room today due to chest pain-he states it is not pain but pressure. Consider patient having history of stent admitted for further workup for any ACS. the pt reported having intermittent episodes of chest pressure since 2-3 weeks and not getting better. sometimes at rest, even at night but not very typical association with exertion. no sob, diaphoresis, nausea or vomiting or any recent lower leg swellings. no viral infections or flu like illnesses. no h/o drug abuse, excessive alcohol intake or active smoking. no orthopnea or PND. Hospital Course Hospital Course Patient admitted for stress test as per cardiology and further intervention according. EKG and troponins were sent and were not remarkably rising. The patient underwent stress test which was negative for ischemia. His medications were adjusted accordingly by the cardiology to be discharged on Imdur 30 daily and losartan 50 mg daily and to hold beta-blockers. His labs were reviewed and further investigations as well after confirming with the cardiology to be discharged home and follow-up as outpatient in 2 weeks Medications reconciled accordingly Patient condition has been discussed at length with the patient/family, I have independently reviewed the chart labs imaging and diagnostics and EKG. the goals of care and code status with the patient/family/NOK/legal workforce services representative, and documented accordingly. The patient/family has been informed about the current condition and further plan of care. Agreed with the plan of care and understood without any language barrier. This documentation was created by [employer] orthotics technician software. Every effort was made to ensure accuracy of orthotics technician. Any obvious errors or omissions should be clarified with the author of the document. Physical Exam Narrative: General: Alert oriented x3, patient seen sitting comfortably on chair without any oxygen supplementation HEENT: Normocephalic, atraumatic, EOMI, breathing at room air Cardio: Regular rate rhythm, normal S1-S2, no murmurs rubs gallops, JVD normal Respiratory: Good bilateral air entry, no wheezes no rhonchi appreciated GI: Abdomen soft, nontender, nondistended, normoactive bowel sounds present all 4 quadrants, having urinary diversion at the right para-umblical area and urinary drainage bag attached. Neuro: Cranial nerves II to XII intact, strength 5/5, sensation 5/5, no gross neurological deficit Behavior: Appropriate and cooperative Extremities: trace pedal edema, good volume pulses Skin: Visible skin intact, no rashes Discharge Data Studies Completed and Pending Completed Studies During Hospitalization Category Date Time Status Cardiac Stress Test MIBI [Sestamibi Stress Test Request Exams 07/09/25 13:55 Draft ] Routine NM sondra perf SPECT r/s* [id number] Routine Nuc Med 07/10/25 13:55 Completed CV. echo complete* [id number] Stat Ultrasound 07/09/25 13:15 Completed Pending at discharge Category Date Time Status CBC Auto Diff [Complete Blood Count w/Auto] AM LABS Lab 07/11/25 04:00 Ordered CMP [Comprehensive Metabolic Panel] AM LABS Lab 07/11/25 04:00 Ordered Laboratory Results WBC 4.47 10^3/uL (3.29-11.43) 07/10/25 03:00 RBC 4.48 10^6/uL (3.85-5.65) 07/10/25 03:00 Hgb 13.50 g/dL (11.27-16.99) 07/10/25 03:00 Hct 41.3 % (37-53) 07/10/25 03:00 MCV 92.2 fl (82-101) 07/10/25 03:00 MCH 30.1 pg (27-33) 07/10/25 03:00 MCHC 32.7 g/dL (30-55) 07/10/25 03:00 RDW 12.3 % (12.1-15.1) 07/10/25 03:00 Plt Count 230 10^3/cmm (157-399) 07/10/25 03:00 MPV 10.5 fL (7.4-10.4) H 07/10/25 03:00 Neut % (Auto) 53.0 % 07/10/25 03:00 Lymph % (Auto) 28.2 % 07/10/25 03:00 [place] % (Auto) 14.8 % 07/10/25 03:00 Eos % (Auto) 3.1 % 07/10/25 03:00 Baso % (Auto) 0.7 % 07/10/25 03:00 Neut # (Auto) 2.37 10^3/uL (1.8-7.7) 07/10/25 03:00 Lymph # (Auto) 1.3 10^3/uL (0.8-4.8) 07/10/25 03:00 [place] # (Auto) 0.7 10^3/uL (0.2-0.9) 07/10/25 03:00 Eos # (Auto) 0.1 10^3/uL (0.0-0.8) 07/10/25 03:00 Baso # (Auto) 0.0 10^3/uL (0.0-0.1) 07/10/25 03:00 Nucleated RBC % (auto) 0 % 07/10/25 03:00 Nucleated RBCs # 0.0 /100WBC 07/10/25 03:00 Sodium 141 mmol/L (136-145) 07/10/25 03:00 Potassium 4.9 mmol/L (3.5-5.1) 07/10/25 03:00 Chloride 104 mmol/L (98-107) 07/10/25 03:00 Carbon Dioxide 26 mmol/L (22-29) 07/10/25 03:00 Anion Gap 15.9 (5-19) 07/10/25 03:00 BUN 14 mg/dL (8-23) 07/10/25 03:00 Creatinine 1.0 mg/dL (0.7-1.2) 07/10/25 03:00 GFR Calculation 74.3 mL/min (90-130) L 07/10/25 03:00 Glucose 92 mg/dL (65-115) 07/10/25 03:00 Calculated Osmolality 292 mOsm/kg (285-295) 07/10/25 03:00 Calcium 9.5 mg/dL (8.5-10.5) 07/10/25 03:00 Phosphorus 3.9 mg/dL (2.5-4.5) 07/09/25 11:08 Magnesium 2.0 mg/dL (1.7-2.3) 07/09/25 11:08 Total Bilirubin 0.4 mg/dL (0.15-1.2) 07/10/25 03:00 AST 27 U/L (0-40) 07/10/25 03:00 ALT 25 U/L (0-41) 07/10/25 03:00 Alkaline Phosphatase 122 U/L (40-130) 07/10/25 03:00 Troponin T Baseline < 6 ng/L (0-15) 07/10/25 00:27 Troponin T 120 Minute 6.54 ng/L (0-15) 07/10/25 03:00 Delta Troponin T 0.24224 ABS# (0-10) 07/10/25 03:00 Troponin T Hi Sens 6Hr 6.51 ng/L (0-15) 07/10/25 06:15 Troponin T Hi Sens 6Hr Delta 0.41684 ng/L (0-12) 07/10/25 06:15 NT-Pro-B Natriuret Pep < 36 pg/mL (0-125) 07/09/25 11:08 Total Protein 6.3 g/dL (6.6-8.7) L 07/10/25 03:00 Albumin 4.0 g/dL (3.5-5.2) 07/10/25 03:00 Globulin 2.3 g/dL (1.3-4.6) 07/10/25 03:00 TSH 3.88 uIU/mL (0.27-4.20) 07/09/25 11:08 Vitals Last Vital Signs Temp 97.5 F L 07/10/25 11:24 Pulse 78 07/10/25 11:24 Resp 16 07/10/25 11:24 BP 143/91 07/10/25 11:24 Pulse Ox 97 07/10/25 11:24 O2 Del Method Room Air 07/10/25 11:24 Discharge Plan Discharge Patient Disposition: Home Condition: Stable Prescriptions: New nitroglycerin 0.4 mg Tablet, Sublingual 0.4 mg sublingual Q5M PRN (Reason: Chest Pain) 90 Days Qty: 90 0RF isosorbide mononitrate 30 mg tablet extended release 24 hr 30 mg PO DAILY 90 Days Qty: 90 0RF losartan 50 mg Tablet 25 mg PO DAILY 90 Days Qty: 90 0RF famotidine 20 mg Tablet 20 mg PO BID 90 Days Qty: 180 0RF Continued trazodone 100 mg tablet 100 mg PO QPM levothyroxine 50 mcg capsule 50 mcg PO DAILY magnesium glycinate 100 mg tablet 100 mg PO QAM omega 3-[id number]-bno-fish oil [Fish Oil] 300-1,000 mg capsule 1 cap PO QAM atorvastatin 40 mg tablet 40 mg PO QPM tramadol 50 mg tablet 50 mg PO TID PRN (Reason: Pain) clopidogrel 75 mg tablet 75 mg PO QPM aspirin [Adult Low Dose Aspirin] 81 mg tablet,delayed release (DR/EC) 81 mg PO QPM Discontinued metoprolol succinate 25 mg tablet extended release 24 hr 25 mg PO QPM Audio Video Mechanic OK for DC: Cardiology Discharge Order = DC NOW: Discharge Order (Routine); Ordered 07/10/25 Ordered By: Malaika Leon Referrals: Cirilo Harrell DO [Primary Care Provider, Family Practice] Rigo Gutierrez MD [Physician, Cardiology] - 2 weeks Discharge Diet: Advance as tolerated and Usual diet Discharge Activity: Resume usual activity and Increase activity as tolerated Patient Instructions: Opioid Safety, Patient Portal & [employer] Instructions Discharge Attestations Time Spent in Discharge Care*: greater than 30 min Specific Discharge Activities: educating patient, educating and/or supporting family/caregiver, discussing with pcp/other providers, discussing with family service caseworker/social workers/dc planners, documenting/other paperwork and evaluating patient/reviewing data Status at Discharge: Cognitive status at discharge: cognitively intact , Behavioral status at discharge: cooperative , Functional status at discharge: independent ambulation , Overall status at discharge: patient is back to baseline Quality Metrics Clinical Quality Measures [ No reported AMI, CVA or VTE this stay] Coding Level of Care Code Acute Code for g Fwd Diagnoses Coronary artery disease I25.10 Unstable angina pectoris I20.0 Trigger finger, right ring finger M65.341 Dyslipidemia (high LDL; low HDL) E78.5 Pulmonary arterial hypertension I27.21 Benign essential HTN I10
== END 2025-07-10 16:06 | disposition home or self-care (01) ==
LOC: ER 12:44 → MEDSURG 14:40
PROVIDERS: Admitting Provider Student in an Organized Health Care Education/Training Program; Emergency Provider Emergency Medicine; PCP Electrodiagnostic Medicine; Visit Provider Student in an Organized Health Care Education/Training Program
DX: I25.110 Atherosclerotic heart disease of native coronary artery with unstable angina pectoris (principal); M65.341 Trigger finger, right ring finger; E78.5 Hyperlipidemia, unspecified; I27.21 Secondary pulmonary arterial hypertension; I10 Essential (primary) hypertension; Z79.82 Long term (current) use of aspirin; Z95.5 Presence of coronary angioplasty implant and graft; Z85.51 Personal history of malignant neoplasm of bladder; E03.9 Hypothyroidism, unspecified; Z87.891 Personal history of nicotine dependence
CPT/HCPCS: 36415; 78452; 80053; 83735; 83880; 84100; 84443; 84484; 85025; 93005; 93017; 93306; 96375; 99285; A9500; G0378; J2785; J9999

== ENCOUNTER → 2025-07-16 11:24 | Outpatient (BNVA) | payer MEDICARE, SELFPAY | PROVIDERS: PCP Electrodiagnostic Medicine; Visit Provider Internal Medicine Cardiovascular Disease | DX: I25.10 Atherosclerotic heart disease of native coronary artery without angina pectoris (principal); I10 Essential (primary) hypertension; E78.2 Mixed hyperlipidemia; I27.21 Secondary pulmonary arterial hypertension; Z79.02 Long term (current) use of antithrombotics/antiplatelets; Z79.82 Long term (current) use of aspirin; Z95.5 Presence of coronary angioplasty implant and graft; Z87.891 Personal history of nicotine dependence | CPT/HCPCS: 99214 ==

== ENCOUNTER 2025-08-17 07:46 | Outpatient (CLI) | payer MEDICARE, SELFPAY ==
--- NOTE | 2025-08-17 07:53 | MR_ITS ---
WS: [id number] MRI BRAIN WITH AND WITHOUT CONTRAST HISTORY: VISUAL CHANGES COMPARISON: None available. TECHNIQUE: Multiplanar imaging performed through the brain with MultiHance 17 ml's IV. No acute infarcts. Diffusion imaging is normal. Numerous scattered T2 and FLAIR signal hyperintensities in the periventricular and subcortical white matter. Nearly symmetric distribution and white matter lesions in the frontal, parietal and temporal lobes. No large territory infarct. No hemorrhage. Prominent perivascular space medial LEFT temporal lobe. No susceptibility artifacts or prior lacunar infarcts. Ventricles and extra-axial spaces are normal. Clivus and pituitary gland are normal. Visualized posterior fossa and brainstem are also normal. Postcontrast images are negative for masses or vascular malformations. Dural venous sinuses are normal. Paranasal sinuses: Small mucous retention cysts in the maxillary sinuses. No air-fluid levels. Mastoid air cells: Small amount of fluid LEFT mastoid air cells. Calvarium and scalp: Normal. MR/MR head wo/w con [id number] IMPRESSION: 1. Normal diffusion imaging. No acute infarct or hemorrhage. 2. Numerous scattered T2 and FLAIR signal hyperintensities likely from small v essel disease. More than typically noted in a patient of this age. Additional e tiologies to consider are diabetes, hypertension, smoking and migraines. 3. No enhancing masses or vascular malformations. 4. Mild LEFT mastoid air cell effusion. 5. No prior infarcts.
[2025-08-17] MEDS: gadobenate dimeglumine 20 mL vial IV (08:43)
== END 2025-08-17 07:47 | disposition home or self-care (01) ==
LOC: RAD 07:46
PROVIDERS: PCP Electrodiagnostic Medicine; Visit Provider Electrodiagnostic Medicine
DX: H53.9 Unspecified visual disturbance (principal); G93.89 Other specified disorders of brain; J34.1 Cyst and mucocele of nose and nasal sinus; J34.89 Other specified disorders of nose and nasal sinuses; I67.82 Cerebral ischemia
CPT/HCPCS: 70553

== ENCOUNTER 2025-10-28 15:38 | Outpatient (CLI) | payer MEDICARE, SELFPAY ==
--- NOTE | 2025-10-28 15:43 | CT_ITS ---
WS: [id number] CT CHEST, ABDOMEN AND PELVIS WITH AND WITHOUT CONTRAST (CT urogram). 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 Coronal and sagittal reformats chest. Coronal and sagittal reformats through the abdomen and pelvis. All CT scans at [facility] use at least one of these dose optimization techniques: automated exposure control; mA and/or kV adjustment per patient size (includes targeted exams where dose is matched to clinical indication); or iterative reconstruction. CONTRAST: Omnipaque 350; 100 mL IV. DLP: 1566.70 mGy.cm COMPARISON: 04/21/2025, 08/27/[address]: Chest CT is performed following IV contrast. There is several very small pulmonary nodules identified. Some of these nodules are calcified and some noncalcified. These nodules were present on 08/27/2024 and probably benign with no increase in size. No new mass or nodule identified. No pneumonia. Mild atherosclerosis aorta. Normal size pulmonary artery. Normal size heart. Small pericardial effusion, no pleural effusion. No pneumothorax. Small hiatal hernia. No pathologically enlarged mediastinal or hilar lymph nodes. No axillary adenopathy. No lytic or blastic bone lesions in the thorax. Abdomen CT: Significant change in appearance of the liver since 04/21/2025. Progression of cirrhotic changes within the liver since the prior study. There are now numerous hypodense masses throughout the liver. These are confluent masses involving both the RIGHT and LEFT lobes of the liver. These masses do not significantly enhance. The background of the cirrhotic liver does enhance. Normal Main portal vein enhancement. The RIGHT portal vein enhancement is limited as the study was protocoled as a CT urogram. Normal enhancement of the splenic vein. Normal size spleen with granulomata. No adrenal mass. Normal pancreas. Gallbladder is contracted with wall thickening. No intrahepatic duct dilatation. Normal enhancement of both kidneys. There is mild cortical thinning. Very mild dilatation of the LEFT renal pelvis is similar to prior studies. On the delayed imaging there is good excretion from the kidneys and filling of the renal pelvis and ureters. Intermittent visualization of each ureter. There is no obstruction. Patient is status post cystoprostatectomy. Ureters extend to the ileal pouch. No obstruction or mass is identified. Stomach is not distended. No small bowel obstruction or colon obstruction. There is mild diffuse constipation. Advanced atherosclerosis aorta. Mesenteric arteries are patent. Mild mesenteric edema. There is some mild stranding in the omentum but no areas of consolidation. There are few small mesenteric lymph nodes. The largest lymph node is 1.5 cm in the RIGHT mesentery that was not present on the prior study. Pelvic CT: Status post cystoprostatectomy. There is a small amount of free fluid in the pelvis which is new. No adenopathy. Mixed lytic sclerotic lesion in the RIGHT ilium is stable. [facility] [id number] IMPRESSION: 1. Significant change in appearance of the liver since the prior study. Marked cirrhotic configuration with numerous low-attenuation masses throughout the li dyana which do not significantly enhance. These masses are confluent and diffuse. Liver needs to be further evaluated at this time. Consider metastatic disease, HCC or regenerating nodules from cirrhosis. 2. Central mesenteric lymphadenopathy. There are several lymph nodes that have enlarged with the largest now measuring 1.5 cm. 3. Small amount of free fluid in the pelvis is new. 4. Status post cystoprostatectomy. No obstruction of either ureter. No uroepit helial lesions identified. 5. No metastatic lesions within the lungs. There are small pulmonary nodules w hich were present on the prior study. 6. Small pericardial effusion. 7. Mild soft tissue stranding throughout the omentum and mesentery this may be edema. With the changes in the abdomen and pelvis neoplastic infiltration shou ld be considered. 8. Contracted gallbladder with wall enhancement. May be secondary to the hepat ocellular disease. Acute cholecystitis may appear similar. Recommend PET/CT imaging at this time to better evaluate the liver and the mese nteric lymph nodes.
[2025-10-28 16:15] LABS: Blood Urea Nitrogen 15 mg/dL (8-23)
[2025-10-28] MEDS: iohexol 350 mg/mL 500 mL Btl (per mL) IV (16:37)
== END 2025-10-28 15:39 | disposition home or self-care (01) ==
LOC: RAD 15:39
PROVIDERS: Radiology Neuroradiology; PCP Electrodiagnostic Medicine; Visit Provider Urology
DX: C67.3 Malignant neoplasm of anterior wall of bladder (principal); I88.0 Nonspecific mesenteric lymphadenitis; K74.60 Unspecified cirrhosis of liver; R93.2 Abnormal findings on diagnostic imaging of liver and biliary tract; R91.8 Other nonspecific abnormal finding of lung field; R18.8 Other ascites
CPT/HCPCS: 71260; 74178; 82565; 84520